=== PATIENT | female | born 1955 | race Caucasian/White ===

== ENCOUNTER 2016-07-01 13:24 | Inpatient (IN) | payer OTHER ==
[2016-07-01 15:12] VITALS: BMI 30.7
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
[2016-07-01] MEDS ORDERED: LOPERAMIDE HCL 2 MG CAPSULE PO PRN (16:58)
[2016-07-01] MEDS ORDERED: MENTHOL/PHENOL 1 EACH UD MM PRN (16:58)
[2016-07-01] MEDS ORDERED: MAGNESIUM HYDROX 2400MG/30ML ORAL SUSPENSION 30 ML CUP PO PRN (16:58)
[2016-07-01] MEDS ORDERED: NICOTINE POLACRILEX 2 MG GUM BC PRN (16:58)
[2016-07-01] MEDS ORDERED: guaiFENesin/D-METHORPHAN HB 10 ML UNIT-DOSE CUPS PO PRN (16:58)
[2016-07-01] MEDS ORDERED: hydrOXYzine PAMOATE 50 MG CAPSULE (FP) PO PRN (16:58)
[2016-07-01] MEDS ORDERED: MAG HYDROX/AL HYDROX/SIMETH 30 ML UNIT-DOSE CUP PO PRN (16:58)
[2016-07-01] MEDS ORDERED: MAGNESIUM CITRATE 300 ML BOTTLE PO PRN (16:58)
[2016-07-01] MEDS ORDERED: P-EPHED 60MG/TRIPROLIDI 2.5MG TABLET PO PRN (16:58)
[2016-07-01] MEDS ORDERED: ALBUTEROL SO4 6.7 GM HFA INHALER IH PRN (17:01)
[2016-07-01] MEDS ORDERED: chlordiazePOXIDE HCL 25 MG CAPSULE PO ONE (18:30)
[2016-07-01] MEDS: ONDANSETRON *ODT* 4 MG TABLET SL PRN (19:04)
[2016-07-01] MEDS: chlordiazePOXIDE HCL 25 MG CAPSULE PO SCH ×2 (19:15→22:38)
[2016-07-01] MEDS: chlordiazePOXIDE HCL 25 MG CAPSULE PO PRN (21:16)
[2016-07-01] MEDS: THIAMINE HCL 100 MG TABLET (FP) PO SCH (22:38)
[2016-07-01] MEDS: RANITIDINE HCL 150 MG TABLET (FP) PO SCH (22:38)
[2016-07-01] MEDS: amLODIPine BESYLATE 5 MG TABLET (FP) PO SCH (22:38)
[2016-07-01] MEDS: ACETAMINOPHEN 325 MG TABLET (FP) PO PRN (22:40)
[2016-07-01] MEDS: diphenhydrAMINE HCL 50 MG CAPSULE PO PRN (23:48)
[2016-07-02] MEDS: chlordiazePOXIDE HCL 25 MG CAPSULE PO SCH ×4 (06:05→22:20)
[2016-07-02] MEDS ORDERED: METHADONE HCL 10 MG TABLET PO ONE (09:25)
[2016-07-02] MEDS ORDERED: METHADONE 40 MG, METHADONE 20 MG PO ONE (10:00)
--- NOTE | 2016-07-02 10:14 | PN ---
S CIWA - CIWA Score Nausea/Vomitin Muscle Tremors: 3 Anxiety: 2 Agitation: 3 Paroxysmal Sweats: 1-Minimal Palms Moist Orientation: 0-Oriented Tacttile Disturbances: 1-Very Mild Itch/Numbness Auditory Disturbances: 1-Very Mild Visual Disturbances: 1-Very Mild Sensitivity Headache: 2-Mild CIWA-Ar Total Score: 17 BHS Progress Note (SOAP) Subjective: ALERT,INTERRUPTED SLEEP,TREMOR,IRRITABLE,ANXIOUS, Objective: 07/02/16 10:09 Vital Signs Temperature 97.7 F 07/02/16 06:00 Pulse Rate 106 H 07/02/16 06:00 Respiratory Rate 20 07/02/16 06:00 Blood Pressure 144/85 07/02/16 06:00 O2 Sat by Pulse Oximetry (%) EKG SINUS TACHYCARDIA 102 NO CHEST PAIN,NO SOB NO DIZZINESS LABS PENDING Assessment: 07/02/16 10:14 WITHDRAWAL SYMPTOM Plan: CONTINUE DETOX
[2016-07-02] MEDS ORDERED: METHADONE HCL 10 MG TABLET ONE (10:19)
[2016-07-02] MEDS ORDERED: METHADONE HCL 40 MG DISPERSABLE TABLET ONE (10:19)
[2016-07-02 10:29] LABS: MCH 31.4 pg (25.7-33.7); MCHC 33.6 g/dl (32.0-36.0); MEAN CELL VOLUME 93.7 fl (80-96); PLATELET COUNT 73 K/MM3 (134-434); WHITE BLOOD COUNT 3.4 K/mm3 (4.0-10.0)
[2016-07-02 10:46] LABS: ALBUMIN 2.9 g/dl (3.4-5.0)
[2016-07-02 10:50] LABS: ALK PHOS 127 U/L (45-117); ANION GAP 12 (8-16); BILIRUBIN,TOTAL 4.7 mg/dL (0.2-1.0); CALCIUM 7.5 mg/dL (8.5-10.1); CO2 34 mmol/L (21-32); CREATININE 0.7 mg/dL (0.55-1.02); GLUCOSE,RANDOM 128 mg/dL (74-106); SGPT/ALT 247 U/L (12-78); TOT PROT 7.3 g/dl (6.4-8.2)
[2016-07-02 10:52] LABS: SGOT/AST 465 U/L (15-37)
[2016-07-02] MEDS: RANITIDINE HCL 150 MG TABLET (FP) PO SCH ×2 (11:00→22:19)
[2016-07-02] MEDS: ASPIRIN 81 MG CHEWABLE TABLETS PO SCH (11:13)
[2016-07-02] MEDS: PRENATAL VITAMINS W/ FOLIC ACID TABLET (FP) PO SCH (11:13)
[2016-07-02] MEDS: amLODIPine BESYLATE 5 MG TABLET (FP) PO SCH ×2 (11:14→22:19)
[2016-07-02] MEDS: NICOTINE 7 MG/24 HOURS TOPICAL PATCH TD SCH (11:16)
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
[2016-07-02] MEDS ORDERED: INFLUENZA VACCINE 45 MCG/0.5 ML (MDV 16-17) IM ONE (12:00)
[2016-07-02] MEDS: chlordiazePOXIDE HCL 25 MG CAPSULE PO PRN (12:45)
--- NOTE | 2016-07-02 16:21 | EKG ---
Test Reason : Blood Pressure : / mmHG Vent. Rate : 102 BPM Atrial Rate : 102 BPM P-R Int : 172 ms QRS Dur : 074 ms QT Int : 384 ms P-R-T Axes : 065 007 048 degrees QTc Int : 500 ms SINUS TACHYCARDIA NONSPECIFIC ST ABNORMALITY ABNORMAL ECG NO PREVIOUS ECGS AVAILABLE Confirmed by SHARON HOLGUIN MD ([id number]) on 07/02/2016 4:20:37 PM Referred By: Paulino Lilly Confirmed By:SHARON HOLGUIN MD
[2016-07-02] MEDS: THIAMINE HCL 100 MG TABLET (FP) PO SCH (22:19)
[2016-07-02] MEDS: ACETAMINOPHEN 325 MG TABLET (FP) PO PRN (22:19)
[2016-07-02] MEDS: diphenhydrAMINE HCL 50 MG CAPSULE PO PRN (22:20)
[2016-07-03] MEDS: chlordiazePOXIDE HCL 25 MG CAPSULE PO SCH ×2 (05:55→10:49)
[2016-07-03] MEDS ORDERED: METHADONE HCL 10 MG TABLET ONE (05:55)
[2016-07-03] MEDS ORDERED: METHADONE HCL 40 MG DISPERSABLE TABLET ONE (05:56)
[2016-07-03] MEDS: METHADONE 40 MG, METHADONE 20 MG PO SCH (05:56)
[2016-07-03] MEDS ORDERED: METHADONE HCL 10 MG TABLET PO SCH (06:00)
[2016-07-03] MEDS: PRENATAL VITAMINS W/ FOLIC ACID TABLET (FP) PO SCH (10:49)
[2016-07-03] MEDS: ASPIRIN 81 MG CHEWABLE TABLETS PO SCH (10:49)
[2016-07-03] MEDS: amLODIPine BESYLATE 5 MG TABLET (FP) PO SCH ×2 (10:49→21:14)
[2016-07-03] MEDS: RANITIDINE HCL 150 MG TABLET (FP) PO SCH ×2 (10:51→21:14)
[2016-07-03] MEDS: NICOTINE 7 MG/24 HOURS TOPICAL PATCH TD SCH (11:15)
--- NOTE | 2016-07-03 12:04 | PN ---
S CIWA - CIWA Score Nausea/Vomitin Muscle Tremors: 3 Anxiety: 3 Agitation: 2 Paroxysmal Sweats: 1-Minimal Palms Moist Orientation: 0-Oriented Tacttile Disturbances: 1-Very Mild Itch/Numbness Auditory Disturbances: 1-Very Mild Visual Disturbances: 1-Very Mild Sensitivity Headache: 2-Mild CIWA-Ar Total Score: 17 BHS Progress Note (SOAP) Subjective: ALERT,IRRITABLE,ANXIOUS,INTERRUPTED SLEEP,TREMOR Objective: 07/03/16 12:01 Vital Signs Temperature 98.6 F 07/03/16 10:00 Pulse Rate 128 H 07/03/16 10:00 Respiratory Rate 18 07/03/16 10:00 Blood Pressure 128/81 07/03/16 10:00 O2 Sat by Pulse Oximetry (%) 07/03/16 12:01 Laboratory Last Values WBC 3.4 K/mm3 (4.0-10.0) L 07/02/16 08:00 RBC 3.22 M/mm3 (3.60-5.2) L D 07/02/16 08:00 Hgb 10.1 GM/dL (10.7-15.3) L D 07/02/16 08:00 Hct 30.2 % (32.4-45.2) L D 07/02/16 08:00 MCV 93.7 fl (80-96) 07/02/16 08:00 MCHC 33.6 g/dl (32.0-36.0) 07/02/16 08:00 RDW 20.0 % (11.6-15.6) H D 07/02/16 08:00 Plt Count 73 K/MM3 (134-434) L D 07/02/16 08:00 MPV 10.0 fl (7.5-11.1) 07/02/16 08:00 Sodium 138 mmol/L (136-145) 07/02/16 08:00 Potassium 3.4 mmol/L (3.5-5.1) L D 07/02/16 08:00 Chloride 92 mmol/L (98-107) L D 07/02/16 08:00 Carbon Dioxide 34 mmol/L (21-32) H D 07/02/16 08:00 Anion Gap 12 (8-16) 07/02/16 08:00 BUN 12 mg/dL (7-18) D 07/02/16 08:00 Creatinine 0.7 mg/dL (0.55-1.02) 07/02/16 08:00 Creat Clearance w eGFR > 60 (>60) 07/02/16 08:00 Random Glucose 128 mg/dL (74-106) H 07/02/16 08:00 Calcium 7.5 mg/dL (8.5-10.1) L D 07/02/16 08:00 Total Bilirubin 4.7 mg/dL (0.2-1.0) H D 07/02/16 08:00 AST 465 U/L (15-37) H D 07/02/16 08:00 ALT 247 U/L (12-78) H D 07/02/16 08:00 Alkaline Phosphatase 127 U/L (45-117) H D 07/02/16 08:00 Total Protein 7.3 g/dl (6.4-8.2) 07/02/16 08:00 Albumin 2.9 g/dl (3.4-5.0) L D 07/02/16 08:00 RPR Titer Nonreactive (NONREACTIVE) 07/02/16 08:00 Assessment: 07/03/16 12:02 WITHDRAWAL SYMPTOM Plan: CONTINUE DETOX,K 3.4 KDURE 20 MEQ PO DAILY,GLUCOE 120 WILL MONITORING BGM, AST 465,ALT 247,WILL D/C TYLENOL,REPEAT CMP,INR ,AMMONIA LEVEL IN AM
[2016-07-03] MEDS ORDERED: POTASSIUM CHLORIDE TABS 20 MEQ TABLET.ER (FP) PO ONE (12:28)
[2016-07-03 13:40] LABS: URINE APPEARANCE CLEAR; URINE BLOOD NEGATIVE (NEGATIVE); URINE COLOR AMBER; URINE GLUCOSE (UA) NEGATIVE (NEGATIVE); URINE KETONE NEGATIVE (NEGATIVE); URINE NITRITE NEGATIVE (NEGATIVE); URINE PROTEIN NEGATIVE (NEGATIVE); URINE UROBILINOGEN 4.0 E.U/dl E.U./dl (0.2-1.0)
[2016-07-03 13:43] LABS: URINE LEUK ESTERASE 2+ (NEGATIVE)
[2016-07-03 13:59] LABS: URINE BACTERIA RARE /hpf (NONE SEEN); URINE RBC <1 /hpf (0-3); URINE WBC 7 /hpf (3-5)
[2016-07-03] MEDS: IBUPROFEN 400 MG TABLET (FP) PO PRN (14:33)
[2016-07-03] MEDS: chlordiazePOXIDE 5 MG CAPSULE PO SCH ×2 (17:23→22:06)
[2016-07-03] MEDS: THIAMINE HCL 100 MG TABLET (FP) PO SCH (21:13)
[2016-07-04] MEDS: IBUPROFEN 400 MG TABLET (FP) PO PRN (03:20)
[2016-07-04] MEDS ORDERED: METHADONE HCL 40 MG DISPERSABLE TABLET ONE (04:08)
[2016-07-04] MEDS ORDERED: METHADONE HCL 10 MG TABLET ONE (04:08)
[2016-07-04] MEDS: chlordiazePOXIDE 5 MG CAPSULE PO SCH ×2 (06:22→13:12)
[2016-07-04] MEDS: METHADONE 40 MG, METHADONE 20 MG PO SCH (06:22)
[2016-07-04 10:11] LABS: ALBUMIN 3.2 g/dl (3.4-5.0); BILIRUBIN,TOTAL 5.3 mg/dL (0.2-1.0); CREATININE 1.1 mg/dL (0.55-1.02); TOT PROT 7.8 g/dl (6.4-8.2)
[2016-07-04] MEDS: PRENATAL VITAMINS W/ FOLIC ACID TABLET (FP) PO SCH (10:33)
[2016-07-04] MEDS: RANITIDINE HCL 150 MG TABLET (FP) PO SCH ×2 (10:33→22:46)
[2016-07-04] MEDS: ONDANSETRON *ODT* 4 MG TABLET SL PRN (10:33)
[2016-07-04] MEDS: POTASSIUM CHLORIDE TABS 20 MEQ TABLET.ER (FP) PO SCH (10:33)
[2016-07-04] MEDS: NICOTINE 7 MG/24 HOURS TOPICAL PATCH TD SCH (10:33)
[2016-07-04] MEDS: amLODIPine BESYLATE 5 MG TABLET (FP) PO SCH ×2 (10:33→22:46)
[2016-07-04] MEDS: ASPIRIN 81 MG CHEWABLE TABLETS PO SCH (10:33)
--- NOTE | 2016-07-04 10:35 | PN ---
S Progress Note (SOAP) Subjective: ALERT,IRRITABLE,ANXIOUS,INTERRUPTED SLEEP,TREMOR Objective: 07/04/16 10:35 Vital Signs Temperature 97.5 F L 07/04/16 09:53 Pulse Rate 109 H 07/04/16 09:53 Respiratory Rate 20 07/04/16 09:53 Blood Pressure 103/69 07/04/16 09:53 O2 Sat by Pulse Oximetry (%) 07/04/16 10:36 Laboratory Last Values WBC 3.4 K/mm3 (4.0-10.0) L 07/02/16 08:00 RBC 3.22 M/mm3 (3.60-5.2) L D 07/02/16 08:00 Hgb 10.1 GM/dL (10.7-15.3) L D 07/02/16 08:00 Hct 30.2 % (32.4-45.2) L D 07/02/16 08:00 MCV 93.7 fl (80-96) 07/02/16 08:00 MCHC 33.6 g/dl (32.0-36.0) 07/02/16 08:00 RDW 20.0 % (11.6-15.6) H D 07/02/16 08:00 Plt Count 73 K/MM3 (134-434) L D 07/02/16 08:00 MPV 10.0 fl (7.5-11.1) 07/02/16 08:00 Sodium 135 mmol/L (136-145) L 07/04/16 08:00 Potassium 3.9 mmol/L (3.5-5.1) 07/04/16 08:00 Chloride 95 mmol/L (98-107) L 07/04/16 08:00 Carbon Dioxide 31 mmol/L (21-32) 07/04/16 08:00 Anion Gap 9 (8-16) 07/04/16 08:00 BUN 26 mg/dL (7-18) H D 07/04/16 08:00 Creatinine 1.1 mg/dL (0.55-1.02) H D 07/04/16 08:00 Creat Clearance w eGFR 50.17 (>60) 07/04/16 08:00 Random Glucose 102 mg/dL (74-106) D 07/04/16 08:00 Calcium 8.0 mg/dL (8.5-10.1) L 07/04/16 08:00 Total Bilirubin 5.3 mg/dL (0.2-1.0) H 07/04/16 08:00 AST 265 U/L (15-37) H D 07/04/16 08:00 ALT 192 U/L (12-78) H D 07/04/16 08:00 Alkaline Phosphatase 210 U/L (45-117) H D 07/04/16 08:00 Total Protein 7.8 g/dl (6.4-8.2) 07/04/16 08:00 Albumin 3.2 g/dl (3.4-5.0) L 07/04/16 08:00 Urine Color [place] 07/03/16 12:00 Urine Appearance Clear 07/03/16 12:00 Urine pH 7.0 (5.0-8.0) 07/03/16 12:00 Ur Specific [place] 1.014 (1.001-1.035) 07/03/16 12:00 Urine Protein Negative (NEGATIVE) 07/03/16 12:00 Urine Glucose (UA) Negative (NEGATIVE) 07/03/16 12:00 Urine Ketones Negative (NEGATIVE) 07/03/16 12:00 Urine Blood Negative (NEGATIVE) 07/03/16 12:00 Urine Nitrite Negative (NEGATIVE) 07/03/16 12:00 Urine Bilirubin 2.0 (NEGATIVE) 07/03/16 12:00 Urine Urobilinogen 4.0 e.u/dl E.U./dl (0.2-1.0) H 07/03/16 12:00 Ur Leukocyte Esterase 2+ (NEGATIVE) H 07/03/16 12:00 Urine RBC <1 /hpf (0-3) 07/03/16 12:00 Urine WBC 7 /hpf (3-5) 07/03/16 12:00 Ur Epithelial Cells Rare /hpf (FEW) 07/03/16 12:00 Urine Bacteria Rare /hpf (NONE SEEN) 07/03/16 12:00 RPR Titer Nonreactive (NONREACTIVE) 07/02/16 08:00 LABS CBC,INR ,AMMONIA LEVEL PENDING Assessment: 07/04/16 10:35 WITHDRAWAL SYMPTOM Plan: CONTINUE DETOX
[2016-07-04 10:58] LABS: INR 1.35 (0.82-1.09); PROTHROMBIN TIME (PATIENT) 14.9 SEC (9.98-11.88)
--- NOTE | 2016-07-04 11:17 | PN ---
[facility] Progress Note Note: Laboratory Results - last 24 hr 07/03/16 07/04/16 07/04/16 12:00 08:00 08:00 INR 1.35 H D Sodium 135 L Potassium 3.9 Chloride 95 L Carbon Dioxide 31 Anion Gap 9 BUN 26 H D Creatinine 1.1 H D Creat Clearance w eGFR 50.17 Random Glucose 102 D Calcium 8.0 L Total Bilirubin 5.3 H AST 265 H D ALT 192 H D Alkaline Phosphatase 210 H D Ammonia Total Protein 7.8 Albumin 3.2 L Urine Color [place] Urine Appearance Clear Urine pH 7.0 Ur Specific [place] 1.014 Urine Protein Negative Urine Glucose (UA) Negative Urine Ketones Negative Urine Blood Negative Urine Nitrite Negative Urine Bilirubin 2.0 Urine Urobilinogen 4.0 e.u/dl H Ur Leukocyte Esterase 2+ H Urine RBC <1 Urine WBC 7 Ur Epithelial Cells Rare Urine Bacteria Rare 07/04/16 08:00 INR Sodium Potassium Chloride Carbon Dioxide Anion Gap BUN Creatinine Creat Clearance w eGFR Random Glucose Calcium Total Bilirubin AST ALT Alkaline Phosphatase Ammonia 92.6 H Total Protein Albumin Urine Color Urine Appearance Urine pH Ur Specific [place] Urine Protein Urine Glucose (UA) Urine Ketones Urine Blood Urine Nitrite Urine Bilirubin Urine Urobilinogen Ur Leukocyte Esterase Urine RBC Urine WBC Ur Epithelial Cells Urine Bacteria WILL STARTED PATIENT ON LACTULOSE 30 MLS PO QID
[2016-07-04] MEDS ORDERED: LACTULOSE 20 GM/30 ML UDC (FOR ORAL USE ONLY) PO ONE (11:32)
[2016-07-04] MEDS: LACTULOSE 20 GM/30 ML UDC (FOR ORAL USE ONLY) PO SCH ×4 (14:18→22:46)
[2016-07-04] MEDS: chlordiazePOXIDE HCL 10 MG CAPSULE PO SCH ×2 (18:28→22:46)
[2016-07-04] MEDS: THIAMINE HCL 100 MG TABLET (FP) PO SCH (22:46)
[2016-07-05] MEDS ORDERED: METHADONE HCL 10 MG TABLET ONE (04:59)
[2016-07-05] MEDS ORDERED: METHADONE HCL 40 MG DISPERSABLE TABLET ONE (04:59)
[2016-07-05] MEDS: METHADONE 40 MG, METHADONE 20 MG PO SCH (05:28)
[2016-07-05] MEDS: chlordiazePOXIDE HCL 10 MG CAPSULE PO SCH ×2 (05:28→10:25)
[2016-07-05] MEDS: IBUPROFEN 400 MG TABLET (FP) PO PRN (05:29)
--- NOTE | 2016-07-05 09:01 | DS ---
[facility] Detox Discharge Summary Admission Date: 07/01/16 - History Present History: Alcohol Dependence, MMTP - Physical Exam Results Vital Signs: Vital Signs Temperature 97.6 F 07/05/16 06:47 Pulse Rate 105 H 07/05/16 06:47 Respiratory Rate 20 07/05/16 06:47 Blood Pressure 112/68 07/05/16 06:47 O2 Sat by Pulse Oximetry (%) - Treatment Hospital Course: Detox Protocol Followed, Detoxed Safely, Responded well, Discharged Condition Good - Medication Discharge Medications: Ambulatory Orders Quetiapine Fumarate [Seroquel -] 100 mg PO HS 09/25/15 Zolpidem Tartrate [Ambien] 10 mg PO HS 12/16/15 Albuterol Sulfate Inhaler - [Ventolin HFA Inhaler -] 2 inh PO Q4H PRN #1 inhaler 01/04/16 Amlodipine Besylate [Norvasc -] 5 mg PO BID #30 tablet 01/04/16 Aspirin [ASA -] 81 mg PO DAILY #30 tab.chew 01/04/16 Bupropion HCl [Wellbutrin -] 75 mg PO DAILY #30 tablet 01/04/16 Ranitidine [Zantac -] 150 mg PO BID #60 tablet 01/04/16 Trazodone HCl [Desyrel -] 50 mg PO HS #30 tablet 01/04/16 - Diagnosis (1) Alcohol dependence with uncomplicated withdrawal Current Visit: Yes Status: Chronic (2) Bruise of both arms Current Visit: Yes Status: Acute (3) Nicotine dependence Current Visit: Yes Status: Chronic Qualifiers: Nicotine product type: cigarettes Substance use status: uncomplicated Qualified Code(s): F17.210 - Nicotine dependence, cigarettes, uncomplicated (4) Opioid dependence on agonist therapy Current Visit: Yes Status: Chronic (5) Asthma Current Visit: Yes Status: Chronic Qualifiers: Asthma severity: mild intermittent Asthma complication type: uncomplicated Qualified Code(s): J45.20 - Mild intermittent asthma, uncomplicated (6) Essential hypertension Current Visit: Yes Status: Chronic (7) Hepatitis C carrier Current Visit: Yes Status: Chronic (8) Low back pain Current Visit: Yes Status: Chronic (9) Use of cane as ambulatory aid Current Visit: Yes Status: Chronic (10) Bipolar disorder Current Visit: Yes Status: Chronic (11) Cirrhosis of liver Current Visit: Yes Status: Chronic - AMA Did Patient Leave Against Medical Advice: No
[2016-07-05 10:09] VITALS: BP 115/73; PULSE 108; TEMP 97.2
[2016-07-05] MEDS: ASPIRIN 81 MG CHEWABLE TABLETS PO SCH (10:21)
[2016-07-05] MEDS: POTASSIUM CHLORIDE TABS 20 MEQ TABLET.ER (FP) PO SCH (10:22)
[2016-07-05] MEDS: amLODIPine BESYLATE 5 MG TABLET (FP) PO SCH (10:22)
[2016-07-05] MEDS: PRENATAL VITAMINS W/ FOLIC ACID TABLET (FP) PO SCH (10:23)
[2016-07-05] MEDS: NICOTINE 7 MG/24 HOURS TOPICAL PATCH TD SCH (10:23)
[2016-07-05] MEDS: LACTULOSE 20 GM/30 ML UDC (FOR ORAL USE ONLY) PO SCH (10:24)
[2016-07-05] MEDS: RANITIDINE HCL 150 MG TABLET (FP) PO SCH (10:24)
== END 2016-07-05 12:30 | disposition other institution (70) | DRG 773 ==
LOC: YASAS 13:24 → Y6N 18:11
PROVIDERS: ADMIT Internal Medicine; ATTEND Internal Medicine
PROC: HZ2ZZZZ Detoxification Services for Substance Abuse Treatment (ICD-10-PCS; principal; 2016-07-01)
DX: F10.230 Alcohol dependence with withdrawal, uncomplicated (principal); F11.20 Opioid dependence, uncomplicated; F17.210 Nicotine dependence, cigarettes, uncomplicated; F31.9 Bipolar disorder, unspecified; J45.20 Mild intermittent asthma, uncomplicated; J44.9 Chronic obstructive pulmonary disease, unspecified; I10 Essential (primary) hypertension; B18.2 Chronic viral hepatitis C; M54.5 Low back pain; K21.9 Gastro-esophageal reflux disease without esophagitis; R26.2 Difficulty in walking, not elsewhere classified; K74.60 Unspecified cirrhosis of liver; E78.00 Pure hypercholesterolemia, unspecified; I25.2 Old myocardial infarction; R00.0 Tachycardia, unspecified; Z91.5 Personal history of self-harm; S00.83XA Contusion of other part of head, initial encounter; S40.812A Abrasion of left upper arm, initial encounter; S40.811A Abrasion of right upper arm, initial encounter; X58.XXXA Exposure to other specified factors, initial encounter; Y93.9 Activity, unspecified; Y92.9 Unspecified place or not applicable
CPT/HCPCS: 36415; 80053; 81003; 81015; 82140; 85027; 85610; 86593; 93005; 93010

== ENCOUNTER 2016-07-05 12:21 | Inpatient (IN) | payer OTHER ==
[2016-07-05 14:18] VITALS: BMI 28.6
--- NOTE | 2016-07-05 16:14 | HP ---
[facility] Rehab Assess/Revision - Admission History Admitted to Rehab from: [facility] Date of Admission to Rehab: 07/05/16 - Vital signs Vital Signs: Vital Signs Period Temp Pulse Resp BP Sys/Craig Pulse Ox Last 24 Hr 97.4 F 90 18 96/64 - Findings Detox History & Physical reviewed: Yes Concur with findings: Yes Comments/Additional Findings: trasnferred from detox to rehab admission as per protocol
[2016-07-05] MEDS ORDERED: MAG HYDROX/AL HYDROX/SIMETH 30 ML UNIT-DOSE CUP PO PRN ×2 (16:15→16:17)
[2016-07-05] MEDS ORDERED: LOPERAMIDE HCL 2 MG CAPSULE PO PRN ×2 (16:15→16:17)
[2016-07-05] MEDS ORDERED: MAGNESIUM CITRATE 300 ML BOTTLE PO PRN ×2 (16:15→16:17)
[2016-07-05] MEDS ORDERED: MAGNESIUM HYDROX 2400MG/30ML ORAL SUSPENSION 30 ML CUP PO PRN ×2 (16:15→16:17)
[2016-07-05] MEDS ORDERED: guaiFENesin/D-METHORPHAN HB 10 ML UNIT-DOSE CUPS PO PRN ×2 (16:15→16:17)
[2016-07-05] MEDS ORDERED: diphenhydrAMINE HCL 50 MG CAPSULE PO PRN ×2 (16:15→16:17)
[2016-07-05] MEDS ORDERED: MENTHOL/PHENOL 1 EACH UD MM PRN ×2 (16:15→16:17)
[2016-07-05] MEDS ORDERED: ACETAMINOPHEN 325 MG TABLET (FP) PO PRN ×2 (16:15→16:17)
[2016-07-05] MEDS ORDERED: P-EPHED 60MG/TRIPROLIDI 2.5MG TABLET PO PRN ×2 (16:15→16:17)
[2016-07-05] MEDS ORDERED: THIAMINE HCL 100 MG TABLET (FP) PO SCH (22:00)
[2016-07-05] MEDS: traZODone HCL 100 MG TABLET (FP) PO SCH (22:53)
[2016-07-05] MEDS: THIAMINE HCL 100 MG TABLET (FP) PO SCH (22:53)
[2016-07-06] MEDS ORDERED: METHADONE HCL 40 MG DISPERSABLE TABLET ONE (05:50)
[2016-07-06] MEDS ORDERED: METHADONE HCL 10 MG TABLET ONE (05:50)
[2016-07-06] MEDS ORDERED: METHADONE HCL 40 MG DISPERSABLE TABLET PO SCH (06:00)
[2016-07-06] MEDS: METHADONE 40 MG, METHADONE 20 MG PO SCH (06:35)
[2016-07-06] MEDS ORDERED: LACTULOSE 20 GM/30 ML UDC (FOR ORAL USE ONLY) PO PRN (09:53)
[2016-07-06] MEDS ORDERED: ALBUTEROL SO4 6.7 GM HFA INHALER IH PRN (09:57)
[2016-07-06] MEDS ORDERED: amLODIPine BESYLATE 5 MG TABLET (FP) PO SCH (10:00)
[2016-07-06] MEDS ORDERED: PRENATAL VITAMINS W/ FOLIC ACID TABLET (FP) PO SCH (10:00)
[2016-07-06] MEDS: RANITIDINE HCL 150 MG TABLET (FP) PO SCH ×2 (10:54→21:28)
[2016-07-06] MEDS: PRENATAL VITAMINS W/ FOLIC ACID TABLET (FP) PO SCH (10:54)
[2016-07-06] MEDS ORDERED: INFLUENZA VACCINE 45 MCG/0.5 ML (MDV 16-17) IM ONE (12:00)
[2016-07-06 12:26] LABS: HIV 1 & 2 AB NEGATIVE; HIV 1 AGp24 NEGATIVE
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
[2016-07-06] MEDS: ASPIRIN COATED 81 MG TABLET.EC PO SCH (14:55)
[2016-07-06] MEDS: FUROSEMIDE 20 MG TABLET (FP) PO SCH (14:55)
[2016-07-06] MEDS: SPIRONOLACTONE 25 MG TABLET (FP) PO SCH (18:28)
[2016-07-06] MEDS: THIAMINE HCL 100 MG TABLET (FP) PO SCH (21:28)
[2016-07-06] MEDS: traZODone HCL 100 MG TABLET (FP) PO SCH (21:30)
[2016-07-06] MEDS: LACTULOSE 20 GM/30 ML UDC (FOR ORAL USE ONLY) PO SCH (21:31)
[2016-07-07] MEDS ORDERED: METHADONE HCL 40 MG DISPERSABLE TABLET ONE (03:13)
[2016-07-07] MEDS ORDERED: METHADONE HCL 10 MG TABLET ONE (03:13)
[2016-07-07] MEDS: METHADONE 40 MG, METHADONE 20 MG PO SCH (06:28)
[2016-07-07] MEDS: LACTULOSE 20 GM/30 ML UDC (FOR ORAL USE ONLY) PO SCH ×3 (06:30→21:29)
[2016-07-07] MEDS: SPIRONOLACTONE 25 MG TABLET (FP) PO SCH ×2 (09:39→18:25)
[2016-07-07] MEDS: FUROSEMIDE 20 MG TABLET (FP) PO SCH (09:39)
[2016-07-07] MEDS: RANITIDINE HCL 150 MG TABLET (FP) PO SCH ×2 (10:46→21:29)
[2016-07-07] MEDS: PRENATAL VITAMINS W/ FOLIC ACID TABLET (FP) PO SCH (10:47)
[2016-07-07] MEDS: ASPIRIN COATED 81 MG TABLET.EC PO SCH (10:47)
[2016-07-07] MEDS: IBUPROFEN 400 MG TABLET (FP) PO PRN (10:54)
[2016-07-07] MEDS: traZODone HCL 100 MG TABLET (FP) PO SCH (21:29)
[2016-07-07] MEDS: THIAMINE HCL 100 MG TABLET (FP) PO SCH (21:30)
[2016-07-08] MEDS ORDERED: METHADONE HCL 10 MG TABLET ONE (03:12)
[2016-07-08] MEDS ORDERED: METHADONE HCL 40 MG DISPERSABLE TABLET ONE (03:12)
[2016-07-08] MEDS: METHADONE 40 MG, METHADONE 20 MG PO SCH (06:26)
[2016-07-08] MEDS: LACTULOSE 20 GM/30 ML UDC (FOR ORAL USE ONLY) PO SCH ×3 (06:31→21:31)
[2016-07-08] MEDS: PRENATAL VITAMINS W/ FOLIC ACID TABLET (FP) PO SCH (10:15)
[2016-07-08] MEDS: ASPIRIN COATED 81 MG TABLET.EC PO SCH (10:15)
[2016-07-08] MEDS: FUROSEMIDE 20 MG TABLET (FP) PO SCH (10:15)
[2016-07-08] MEDS: RANITIDINE HCL 150 MG TABLET (FP) PO SCH ×2 (10:15→21:31)
[2016-07-08] MEDS: SPIRONOLACTONE 25 MG TABLET (FP) PO SCH ×2 (10:15→18:44)
[2016-07-08] MEDS ORDERED: METHADONE HCL 40 MG DISPERSABLE TABLET PO SCH (13:31)
--- NOTE | 2016-07-08 13:35 | PN ---
[facility] Progress Note Note: Patient requested dcrease of methadone dose to 50mg from 60mg because of daytime sleepiness, abnormal u/a, CBC and LFTs. Will repeat and recheck ammonia level. nursing aware.
[2016-07-08] MEDS: traZODone HCL 100 MG TABLET (FP) PO SCH (21:31)
[2016-07-08] MEDS: THIAMINE HCL 100 MG TABLET (FP) PO SCH (21:31)
[2016-07-09] MEDS ORDERED: METHADONE HCL 10 MG TABLET ONE (04:11)
[2016-07-09] MEDS ORDERED: METHADONE HCL 40 MG DISPERSABLE TABLET ONE (04:11)
[2016-07-09] MEDS: LACTULOSE 20 GM/30 ML UDC (FOR ORAL USE ONLY) PO SCH ×3 (06:32→21:18)
[2016-07-09] MEDS: METHADONE 40 MG, METHADONE 10 MG PO SCH (06:33)
[2016-07-09] MEDS: FUROSEMIDE 20 MG TABLET (FP) PO SCH (10:13)
[2016-07-09] MEDS: RANITIDINE HCL 150 MG TABLET (FP) PO SCH ×2 (10:13→21:17)
[2016-07-09] MEDS: PRENATAL VITAMINS W/ FOLIC ACID TABLET (FP) PO SCH (10:13)
[2016-07-09] MEDS: ASPIRIN COATED 81 MG TABLET.EC PO SCH (10:13)
[2016-07-09] MEDS: SPIRONOLACTONE 25 MG TABLET (FP) PO SCH ×2 (10:14→18:24)
[2016-07-09 11:07] LABS: BASOPHIL 0.8 % (0-2.0); EOSINOPHIL 0.6 % (0-4.5); MCH 32.7 pg (25.7-33.7); MCHC 32.7 g/dl (32.0-36.0); MEAN CELL VOLUME 99.9 fl (80-96); MEAN PLT VOLUME 10.5 fl (7.5-11.1); NEUTROPHILS 50.7 % (42.8-82.8); PLATELET COUNT 179 K/MM3 (134-434); RDW 19.8 % (11.6-15.6); WHITE BLOOD COUNT 5.9 K/mm3 (4.0-10.0)
[2016-07-09 11:40] LABS: ALBUMIN 2.8 g/dl (3.4-5.0); CALCIUM 8.4 mg/dL (8.5-10.1); CREATININE 1.1 mg/dL (0.55-1.02)
[2016-07-09 11:42] LABS: BILIRUBIN,TOTAL 3.4 mg/dL (0.2-1.0); TOT PROT 7.5 g/dl (6.4-8.2)
--- NOTE | 2016-07-09 12:21 | PN ---
[id number] 08:00 08:00 WBC RBC Hgb Hct MCV MCHC RDW Plt Count MPV Neutrophils % Lymphocytes % Monocytes % Eosinophils % Basophils % Sodium 139 Potassium 4.4 Chloride 101 Carbon Dioxide 29 Anion Gap 9 BUN 23 H Creatinine 1.1 H Creat Clearance w eGFR 50.17 Random Glucose 94 Calcium 8.4 L Total Bilirubin 3.4 H D AST 100 H D ALT 87 H D Alkaline Phosphatase 129 H D Ammonia 172.86 H Total Protein 7.5 Albumin 2.8 L HIV 1&2 Antibody Screen Negative HIV P24 Antigen Negative 07/09/16 08:00 WBC 5.9 D RBC 3.32 L Hgb 10.9 Hct 33.2 MCV 99.9 H MCHC 32.7 RDW 19.8 H Plt Count 179 D MPV 10.5 Neutrophils % 50.7 Lymphocytes % 32.3 Monocytes % 15.6 H Eosinophils % 0.6 Basophils % 0.8 Sodium Potassium Chloride Carbon Dioxide Anion Gap BUN Creatinine Creat Clearance w eGFR Random Glucose Calcium Total Bilirubin AST ALT Alkaline Phosphatase Ammonia Total Protein Albumin HIV 1&2 Antibody Screen HIV P24 Antigen Vital Signs - 24 hr 07/08/16 07/08/16 07/09/16 13:30 18:40 00:30 Temperature Pulse Rate 84 91 H Respiratory 20 Rate Blood Pressure 98/63 129/78 07/09/16 07/09/16 07/09/16 03:30 07:02 09:44 Temperature 97.4 F L Pulse Rate 98 H 89 Respiratory 20 18 Rate Blood Pressure 104/69 96/63 07/09/16 11:17 Temperature 97.7 F Pulse Rate 75 Respiratory 18 Rate Blood Pressure 109/72 EKG prologed QTC, no acute changes Patient seen by Dr. Jorge Carrillo.
[2016-07-09] MEDS ORDERED: METHADONE HCL 40 MG DISPERSABLE TABLET PO SCH (13:31)
[2016-07-09] MEDS: IBUPROFEN 400 MG TABLET (FP) PO PRN (13:37)
--- NOTE | 2016-07-09 13:57 | PN ---
[facility] Progress Note (SOAP) Subjective: PT. C/O CHEST PAIN ALONG LEFT STERNAL BORDER Objective: 07/09/16 13:49 Vital Signs - 8 hr 07/09/16 07/09/16 07/09/16 07:02 09:44 11:17 Temperature 97.4 F L 97.7 F Pulse Rate 98 H 89 75 Respiratory 18 18 Rate Blood Pressure 104/69 96/63 109/72 Laboratory Tests 07/06/16 07/09/16 07/09/16 07:00 08:00 08:00 WBC RBC Hgb Hct MCV MCHC RDW Plt Count MPV Neutrophils % Lymphocytes % Monocytes % Eosinophils % Basophils % Sodium 139 Potassium 4.4 Chloride 101 Carbon Dioxide 29 Anion Gap 9 BUN 23 H Creatinine 1.1 H Creat Clearance w eGFR 50.17 Random Glucose 94 Calcium 8.4 L Total Bilirubin 3.4 H D AST 100 H D ALT 87 H D Alkaline Phosphatase 129 H D Ammonia 172.86 H Total Protein 7.5 Albumin 2.8 L HIV 1&2 Antibody Screen Negative HIV P24 Antigen Negative 07/09/16 08:00 WBC 5.9 D RBC 3.32 L Hgb 10.9 Hct 33.2 MCV 99.9 H MCHC 32.7 RDW 19.8 H Plt Count 179 D MPV 10.5 Neutrophils % 50.7 Lymphocytes % 32.3 Monocytes % 15.6 H Eosinophils % 0.6 Basophils % 0.8 Sodium Potassium Chloride Carbon Dioxide Anion Gap BUN Creatinine Creat Clearance w eGFR Random Glucose Calcium Total Bilirubin AST ALT Alkaline Phosphatase Ammonia Total Protein Albumin HIV 1&2 Antibody Screen HIV P24 Antigen ON 07/02 T. YASMANY 5.3, AST 265 & ALT 195 THERE IS IMPROVEMENT IN LIVER ENZYMES. CBC ALSO IMPROVED FROM 07/02/16. AMMONIA 172 UP FROM 96. LUNGS : GROSSLY CLEAR HEART : RR, NO MURMUR CHEST : PAIN ON PALPATION ALONG STERNO-CHONDRAL JOINT EKG : NSR, PROLONGED QTc WHEN COMPARED TO EKG OF 07/01/16 SINUS TACHYCARDIA NO LONGER PRESENT Assessment: 07/09/16 13:57 COSTOCHONDRITIS Plan: MOTRIN PRN CONTINUE NEBULIZER TREATMENT ASTHMA CONTINUE LACTULOSE
[2016-07-09 19:02] LABS: URINE APPEARANCE CLEAR; URINE BLOOD NEGATIVE (NEGATIVE); URINE COLOR AMBER; URINE GLUCOSE (UA) NEGATIVE (NEGATIVE); URINE KETONE NEGATIVE (NEGATIVE); URINE NITRITE NEGATIVE (NEGATIVE); URINE PROTEIN NEGATIVE (NEGATIVE); URINE UROBILINOGEN 4.0 E.U/dl E.U./dl (0.2-1.0)
[2016-07-09 19:13] LABS: URINE LEUK ESTERASE TRACE (NEGATIVE)
[2016-07-09 19:16] LABS: URINE BACTERIA RARE /hpf (NONE SEEN); URINE HYALINE CAST 12 /lpf; URINE MUCUS RARE; URINE RBC 1 /hpf (0-3); URINE WBC 1 /hpf (3-5)
[2016-07-09] MEDS: THIAMINE HCL 100 MG TABLET (FP) PO SCH (21:17)
[2016-07-09] MEDS: traZODone HCL 100 MG TABLET (FP) PO SCH (21:17)
[2016-07-10] MEDS: METHADONE 40 MG, METHADONE 10 MG PO SCH (06:50)
[2016-07-10] MEDS: LACTULOSE 20 GM/30 ML UDC (FOR ORAL USE ONLY) PO SCH ×3 (07:02→21:34)
[2016-07-10] MEDS ORDERED: METHADONE HCL 40 MG DISPERSABLE TABLET ONE (07:04)
[2016-07-10] MEDS ORDERED: METHADONE HCL 10 MG TABLET ONE (07:04)
[2016-07-10] MEDS: PRENATAL VITAMINS W/ FOLIC ACID TABLET (FP) PO SCH (10:14)
[2016-07-10] MEDS: FUROSEMIDE 20 MG TABLET (FP) PO SCH (10:14)
[2016-07-10] MEDS: SPIRONOLACTONE 25 MG TABLET (FP) PO SCH ×2 (10:14→17:43)
[2016-07-10] MEDS: ASPIRIN COATED 81 MG TABLET.EC PO SCH (10:15)
[2016-07-10] MEDS: RANITIDINE HCL 150 MG TABLET (FP) PO SCH ×2 (10:15→21:35)
[2016-07-10] MEDS: IBUPROFEN 400 MG TABLET (FP) PO PRN (10:16)
[2016-07-10] MEDS: traZODone HCL 100 MG TABLET (FP) PO SCH (21:35)
[2016-07-10] MEDS: THIAMINE HCL 100 MG TABLET (FP) PO SCH (21:35)
--- NOTE | 2016-07-10 23:36 | EKG ---
Test Reason : Blood Pressure : / mmHG Vent. Rate : 073 BPM Atrial Rate : 073 BPM P-R Int : 162 ms QRS Dur : 072 ms QT Int : 464 ms P-R-T Axes : 034 -03 029 degrees QTc Int : 511 ms NORMAL SINUS RHYTHM MINIMAL VOLTAGE CRITERIA FOR LVH, MAY BE NORMAL VARIANT PROLONGED QT ABNORMAL ECG WHEN COMPARED WITH ECG OF 01-JUL-2016 18:55, NO SIGNIFICANT CHANGE WAS FOUND Confirmed by ETTA SEARS, WINSTON ([id number]) on 07/10/2016 11:36:00 PM Referred By: Oksana Block Confirmed By:WINSTON QUILES MD
[2016-07-11] MEDS ORDERED: METHADONE HCL 40 MG DISPERSABLE TABLET ONE (03:22)
[2016-07-11] MEDS ORDERED: METHADONE HCL 10 MG TABLET ONE (03:22)
[2016-07-11] MEDS: METHADONE 40 MG, METHADONE 10 MG PO SCH (07:00)
[2016-07-11] MEDS: LACTULOSE 20 GM/30 ML UDC (FOR ORAL USE ONLY) PO SCH ×3 (07:01→21:20)
[2016-07-11] MEDS: SPIRONOLACTONE 25 MG TABLET (FP) PO SCH ×2 (09:28→19:06)
[2016-07-11] MEDS: FUROSEMIDE 20 MG TABLET (FP) PO SCH ×2 (09:29→14:28)
[2016-07-11] MEDS: PRENATAL VITAMINS W/ FOLIC ACID TABLET (FP) PO SCH (10:20)
[2016-07-11] MEDS: RANITIDINE HCL 150 MG TABLET (FP) PO SCH ×2 (10:20→21:19)
[2016-07-11] MEDS: ASPIRIN COATED 81 MG TABLET.EC PO SCH (10:20)
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
[2016-07-11] MEDS: traZODone HCL 100 MG TABLET (FP) PO SCH (21:19)
[2016-07-11] MEDS: THIAMINE HCL 100 MG TABLET (FP) PO SCH (21:19)
[2016-07-12] MEDS ORDERED: METHADONE HCL 10 MG TABLET ONE (04:57)
[2016-07-12] MEDS ORDERED: METHADONE HCL 40 MG DISPERSABLE TABLET ONE (04:58)
[2016-07-12] MEDS: FUROSEMIDE 20 MG TABLET (FP) PO SCH ×2 (06:36→13:44)
[2016-07-12] MEDS: METHADONE 40 MG, METHADONE 10 MG PO SCH (06:37)
[2016-07-12] MEDS: LACTULOSE 20 GM/30 ML UDC (FOR ORAL USE ONLY) PO SCH ×3 (06:38→21:38)
[2016-07-12] MEDS: ASPIRIN COATED 81 MG TABLET.EC PO SCH (10:23)
[2016-07-12] MEDS: SPIRONOLACTONE 25 MG TABLET (FP) PO SCH ×2 (10:23→18:00)
[2016-07-12] MEDS: RANITIDINE HCL 150 MG TABLET (FP) PO SCH ×2 (10:23→21:37)
[2016-07-12] MEDS: THIAMINE HCL 100 MG TABLET (FP) PO SCH (21:37)
[2016-07-12] MEDS: traZODone HCL 100 MG TABLET (FP) PO SCH (21:37)
[2016-07-13] MEDS ORDERED: METHADONE HCL 40 MG DISPERSABLE TABLET ONE (03:24)
[2016-07-13] MEDS ORDERED: METHADONE HCL 10 MG TABLET ONE (03:24)
[2016-07-13] MEDS: METHADONE 40 MG, METHADONE 10 MG PO SCH (06:22)
[2016-07-13] MEDS: FUROSEMIDE 20 MG TABLET (FP) PO SCH ×2 (06:23→13:21)
[2016-07-13] MEDS: LACTULOSE 20 GM/30 ML UDC (FOR ORAL USE ONLY) PO SCH ×3 (06:26→21:39)
[2016-07-13] MEDS ORDERED: PT OWN MED DRAWER 7, Y5N ONE (08:49)
[2016-07-13] MEDS: RANITIDINE HCL 150 MG TABLET (FP) PO SCH ×2 (10:26→21:41)
[2016-07-13] MEDS: ASPIRIN COATED 81 MG TABLET.EC PO SCH (10:26)
[2016-07-13] MEDS: SPIRONOLACTONE 25 MG TABLET (FP) PO SCH ×2 (10:26→18:25)
[2016-07-13] MEDS: traZODone HCL 100 MG TABLET (FP) PO SCH (21:39)
[2016-07-13] MEDS: THIAMINE HCL 100 MG TABLET (FP) PO SCH (21:40)
--- NOTE | 2016-07-14 00:07 | PN ---
S Progress Note Note: INVESTIGATIVE REPORTER RECEIVED A PHONE CALL FROM THE RN CARLOS ALBERTO STATING THE BIOCHEMISTRY TEACHER FOUND THE PATIENT ON THE FLOOR. PT. ASSESSED RESTING COMFORTABLY IN BED. SHE STATED SHE SLID OFF THE BED. SHE DENIED PAIN OR TENDERNESS ON PALPATION. SKIN INTACT. VSS. PATIENT ADVISED TO CALL THE NURSING STAFF IF SHE WANTS TO GET OOB ; PT. VERBALIZED UNDERSTANDING. PLAN: FALL PROTOCOL #2 INITIATED; REPEAT AMMONIA LEVELS; CONTINUE DETOX. Last Vital Signs Temp Pulse Resp BP Pulse Ox 98 F 87 18 121/80 07/13/16 12:00 07/13/16 13:16 07/13/16 12:00 07/13/16 13:16 +
[2016-07-14] MEDS ORDERED: METHADONE HCL 10 MG TABLET ONE (03:31)
[2016-07-14] MEDS ORDERED: METHADONE HCL 40 MG DISPERSABLE TABLET ONE (03:32)
[2016-07-14] MEDS: LACTULOSE 20 GM/30 ML UDC (FOR ORAL USE ONLY) PO SCH ×4 (07:10→21:08)
[2016-07-14] MEDS: METHADONE 40 MG, METHADONE 10 MG PO SCH (07:10)
[2016-07-14] MEDS: FUROSEMIDE 20 MG TABLET (FP) PO SCH ×2 (07:11→14:07)
[2016-07-14] MEDS: SPIRONOLACTONE 25 MG TABLET (FP) PO SCH ×2 (10:36→18:25)
[2016-07-14] MEDS: ASPIRIN COATED 81 MG TABLET.EC PO SCH (10:45)
[2016-07-14] MEDS: RANITIDINE HCL 150 MG TABLET (FP) PO SCH ×2 (10:45→21:08)
[2016-07-14] MEDS: traZODone HCL 100 MG TABLET (FP) PO SCH (21:08)
[2016-07-14] MEDS: THIAMINE HCL 100 MG TABLET (FP) PO SCH (21:08)
[2016-07-15] MEDS ORDERED: METHADONE HCL 40 MG DISPERSABLE TABLET PO SCH (06:15)
[2016-07-15] MEDS ORDERED: METHADONE HCL 40 MG DISPERSABLE TABLET ONE (07:05)
[2016-07-15] MEDS ORDERED: METHADONE HCL 10 MG TABLET ONE (07:05)
[2016-07-15] MEDS: METHADONE 40 MG, METHADONE 10 MG PO SCH (07:06)
[2016-07-15] MEDS: LACTULOSE 20 GM/30 ML UDC (FOR ORAL USE ONLY) PO SCH ×3 (07:10→21:51)
[2016-07-15] MEDS: FUROSEMIDE 20 MG TABLET (FP) PO SCH ×2 (07:16→14:29)
[2016-07-15] MEDS: SPIRONOLACTONE 25 MG TABLET (FP) PO SCH ×2 (10:46→18:52)
[2016-07-15] MEDS: ASPIRIN COATED 81 MG TABLET.EC PO SCH (10:46)
[2016-07-15] MEDS: RANITIDINE HCL 150 MG TABLET (FP) PO SCH ×2 (10:46→21:50)
[2016-07-15] MEDS: traZODone HCL 100 MG TABLET (FP) PO SCH (21:50)
[2016-07-15] MEDS: THIAMINE HCL 100 MG TABLET (FP) PO SCH (21:52)
[2016-07-16] MEDS ORDERED: METHADONE HCL 40 MG DISPERSABLE TABLET ONE (03:15)
[2016-07-16] MEDS ORDERED: METHADONE HCL 10 MG TABLET ONE (03:15)
[2016-07-16] MEDS: METHADONE 40 MG, METHADONE 10 MG PO SCH (06:57)
[2016-07-16] MEDS: LACTULOSE 20 GM/30 ML UDC (FOR ORAL USE ONLY) PO SCH ×3 (06:58→21:51)
[2016-07-16] MEDS: FUROSEMIDE 20 MG TABLET (FP) PO SCH ×2 (06:58→13:03)
[2016-07-16] MEDS: SPIRONOLACTONE 25 MG TABLET (FP) PO SCH ×2 (10:20→17:27)
[2016-07-16] MEDS: RANITIDINE HCL 150 MG TABLET (FP) PO SCH ×2 (10:20→21:51)
[2016-07-16] MEDS: ASPIRIN COATED 81 MG TABLET.EC PO SCH (10:20)
[2016-07-16] MEDS: THIAMINE HCL 100 MG TABLET (FP) PO SCH (21:51)
[2016-07-16] MEDS: traZODone HCL 100 MG TABLET (FP) PO SCH (21:51)
[2016-07-17] MEDS ORDERED: METHADONE HCL 10 MG TABLET ONE (03:10)
[2016-07-17] MEDS ORDERED: METHADONE HCL 40 MG DISPERSABLE TABLET ONE (03:10)
[2016-07-17] MEDS: LACTULOSE 20 GM/30 ML UDC (FOR ORAL USE ONLY) PO SCH ×3 (06:29→21:29)
[2016-07-17] MEDS: FUROSEMIDE 20 MG TABLET (FP) PO SCH ×2 (06:29→14:25)
[2016-07-17] MEDS: METHADONE 40 MG, METHADONE 10 MG PO SCH (06:29)
[2016-07-17] MEDS: SPIRONOLACTONE 25 MG TABLET (FP) PO SCH ×2 (10:00→17:50)
[2016-07-17] MEDS: RANITIDINE HCL 150 MG TABLET (FP) PO SCH ×2 (10:00→21:28)
[2016-07-17] MEDS: ASPIRIN COATED 81 MG TABLET.EC PO SCH (10:00)
[2016-07-17] MEDS: THIAMINE HCL 100 MG TABLET (FP) PO SCH (21:28)
[2016-07-17] MEDS: traZODone HCL 100 MG TABLET (FP) PO SCH (21:28)
[2016-07-18] MEDS ORDERED: METHADONE HCL 10 MG TABLET ONE (03:14)
[2016-07-18] MEDS ORDERED: METHADONE HCL 40 MG DISPERSABLE TABLET ONE (03:14)
[2016-07-18] MEDS: METHADONE 40 MG, METHADONE 10 MG PO SCH (06:51)
[2016-07-18] MEDS: LACTULOSE 20 GM/30 ML UDC (FOR ORAL USE ONLY) PO SCH (06:51)
[2016-07-18] MEDS: FUROSEMIDE 20 MG TABLET (FP) PO SCH (06:51)
[2016-07-18 07:43] VITALS: BP 122/75; PULSE 91; TEMP 98.1
--- NOTE | 2016-07-18 09:57 | PN ---
[id number] 78-92 16-18 97-122/66-75 Date of Session: 07/18/16 Chief Complaint:: Discharge visit HPI: Patient adressed Alcohol and Opioid dependence comorbid with Bipolar disorder. ROS: Significant for COPD,BA,Cirrhosis of the liver. Current Side Effect: No Lab tests ordered: No Lab tests reviewed: Yes Provider note:: Patient completed this program today.She has met her treatment goals and will continue to address her issues on outpatient basis.Patient continues to find that Trazodone 100 mg po hs Total face to face time:: 30 Mental Status Exam - Mental Status Exam Alert and Oriented to: Time, Place, Person Cognitive Function: Grossly Intact Patient Appearance: Unkempt Mood: Euthymic Affect: Mood Congruent Patient Behavior: Cooperative Speech Pattern: Clear Voice Loudness: Normal Thought Process: Goal Oriented Thought Disorder: Being Controlled Hallucinations: Denies Suicidal Ideation: Denies Homicidal Ideation: Denies Insight/Judgement: Fair Sleep: Fair Appetite: Fair Muscle strength/Tone: Normal Gait/Station: Normal Psychiatric Treatment Plan - Problem List (2) Asthma Qualifiers: Asthma severity: mild intermittent Asthma complication type: uncomplicated Qualified Code(s): J45.20 - Mild intermittent asthma, uncomplicated (3) Bipolar disorder Comment: Self-report. (4) COPD (chronic obstructive pulmonary disease) Qualifiers: COPD type: unspecified COPD Qualified Code(s): J44.9 - Chronic obstructive pulmonary disease, unspecified
== END 2016-07-18 08:50 | disposition home or self-care (01) | DRG 772 ==
LOC: YASAS 12:21 → Y3E 12:23
PROVIDERS: ADMIT Psychiatry & Neurology Psychiatry; ATTEND Psychiatry & Neurology Psychiatry
PROC: HZ42ZZZ Group Counseling for Substance Abuse Treatment, Cognitive-Behavioral (ICD-10-PCS; principal; 2016-07-18)
DX: F11.20 Opioid dependence, uncomplicated (principal); F10.20 Alcohol dependence, uncomplicated; F31.9 Bipolar disorder, unspecified; J45.20 Mild intermittent asthma, uncomplicated; J44.9 Chronic obstructive pulmonary disease, unspecified; K74.60 Unspecified cirrhosis of liver
CPT/HCPCS: 36415; 80053; 81003; 81015; 82140; 85025; 87389; 93005; 93010

== ENCOUNTER 2017-03-11 22:53 | Inpatient (IN) | payer OTHER ==
[2017-03-11] MEDS ORDERED: diazePAM CARPU-JECT 10 MG/2 ML DISP.SYRIN IVPUSH ONE (23:21)
[2017-03-11] MEDS ORDERED: ONDANSETRON 4 MG/2 ML VIAL IVPUSH ONE (23:21)
[2017-03-11] MEDS ORDERED: SODIUM CHLORIDE 1,000 ML IV STA (23:21)
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
[2017-03-12] MEDS ORDERED: ONDANSETRON 4 MG/2 ML VIAL ONE (00:06)
[2017-03-12 00:08] LABS: BASOPHIL 0.7 % (0-2.0); EOSINOPHIL 0.1 % (0-4.5); MCH 32.2 pg (25.7-33.7); MCHC 33.4 g/dl (32.0-36.0); MEAN CELL VOLUME 96.4 fl (80-96); MEAN PLT VOLUME 9.6 fl (7.5-11.1); NEUTROPHILS 72.4 % (42.8-82.8); PLATELET COUNT 64 K/MM3 (134-434); RDW 14.8 % (11.6-15.6)
[2017-03-12] MEDS ORDERED: LORazepam 2 MG/ML SDV VIAL ONE ×2 (00:13→01:30)
[2017-03-12 00:32] LABS: ALBUMIN 2.8 g/dl (3.4-5.0); ANION GAP 14 (8-16); BILIRUBIN,TOTAL 2.8 mg/dL (0.2-1.0); CALCIUM 7.2 mg/dL (8.5-10.1); CO2 25 mmol/L (21-32); CREATININE 0.7 mg/dL (0.55-1.02); GLUCOSE,RANDOM 76 mg/dL (74-106); SGOT/AST 297 U/L (15-37); SGPT/ALT 135 U/L (12-78); TOT PROT 8.8 g/dl (6.4-8.2)
[2017-03-12 00:33] LABS: ALK PHOS 137 U/L (45-117)
[2017-03-12] MEDS ORDERED: chlordiazePOXIDE HCL 25 MG CAPSULE PO ONE (01:06)
[2017-03-12 01:26] LABS: URINE APPEARANCE CLEAR; URINE BILIRUBIN NEGATIVE (NEGATIVE); URINE BLOOD 1+ (NEGATIVE); URINE COLOR AMBER; URINE GLUCOSE (UA) NEGATIVE (NEGATIVE); URINE KETONE NEGATIVE (NEGATIVE); URINE LEUK ESTERASE TRACE (NEGATIVE); URINE NITRITE NEGATIVE (NEGATIVE); URINE UROBILINOGEN 4.0 E.U/dl mg/dL (0.2-1.0)
[2017-03-12 01:29] LABS: URINE PROTEIN 1+ (NEGATIVE)
[2017-03-12] MEDS ORDERED: chlordiazePOXIDE HCL 25 MG CAPSULE ONE (01:30)
[2017-03-12 01:32] LABS: URINE HYALINE CAST 9 /lpf; URINE MUCUS RARE; URINE WBC 2 /hpf (3-5)
[2017-03-12 02:23] LABS: URINE MARIJUANA THC NEGATIVE ng/ml (CUTOFF=50)
--- NOTE | 2017-03-12 03:00 | PN ---
Teaching Attending Note Name of Resident: Jef Bowles ATTENDING PHYSICIAN STATEMENT I saw and evaluated the patient. I reviewed the resident's note and discussed the case with the resident. I agree with the resident's findings and plan as documented. OBJECTIVE: ASSESSMENT AND PLAN: The patient is a 62 year old female with a significant past medical history of polysubstance abuse (IV heroin and alcohol) who presented to the ED with abdominal pain and is being admitted to inpatient services with a diagnosis of alcohol withdrawal and pancreatitis. #Pancreatitis Presumed alcoholic Elevated bilirubin, alk phos and transaminases noted Suspect that this is due to alcohol abuse but must rule out choledocholithiasis She thinks she may have had a cholecystectomy but is not sure Obtain abd US Aggressive IV hydration with NS Pain control with morphine GI consult #Alcohol witdrawal Librium and Ativan Detox consult See resident note for full details
[2017-03-12] MEDS ORDERED: SODIUM CHLORIDE 0.45% 1,000 ML IV SCH (03:15)
[2017-03-12] MEDS ORDERED: POTASSIUM CHLORIDE TABS 20 MEQ TABLET.ER (FP) PO ONE (03:24)
[2017-03-12] MEDS ORDERED: chlordiazePOXIDE HCL 25 MG CAPSULE PO PRN (03:27)
[2017-03-12] MEDS ORDERED: DEXTROSE 5%-NORMAL SALINE 1,000 ML IV SCH ×2 (03:30→08:08)
[2017-03-12] MEDS ORDERED: FOLIC ACID INJECTION - 1 MG, THIAMINE HCL 100 MG, MULTIVIT INJECTION ADULT 10 ML in SOD... IVPB ONE (04:30)
--- NOTE | 2017-03-12 04:44 | HP ---
CHIEF COMPLAINT:vomiting, abd pain, alcohol withdrawal HISTORY OF PRESENT ILLNESS: 62 y/o F w/PMH of polysubstance abuse (IV heroin and alcohol use) presented to the ER with epigastric abd pain, nausea, vomiting. Pt reports last drink being yesterday morning at 10 am and she drank 1 pint of vodka. She states before this she drank one pint of vodka daily. She checked into rehab/detox today but began feeling her presenting symptoms. She also c/o of shaking/tremors in her arms and reports the epigastric abd pain as radiating to her back. She reports chills but no fevers. She denies CP, SOB, blood in vomit, blood in stool, recent drug use. She was found to have elevated lipase here. ER course was notable for: (1) ativan, librium, zofran, ns (2) (3) PAST MEDICAL HISTORY:polysubstance abuse (IV heroin and alcohol use) PAST SURGICAL HISTORY: cholecystectomy Social History: Smoking: denies Alcohol: 1 pint vodka/day Drugs: denies, reports last use of heroin was 7-8 months ago Family History: n-c Allergies No Known Allergies Allergy (Verified 03/11/17 23:11) confirmed by Kyler Lagos RN 12/16/2015 HOME MEDICATIONS: Home Medications Medication Instructions Recorded Quetiapine Fumarate [Seroquel -] 100 mg PO HS 09/25/15 Zolpidem Tartrate [Ambien] 10 mg PO HS 12/16/15 Bupropion HCl [Wellbutrin -] 75 mg PO DAILY #30 tablet 01/04/16 Trazodone HCl [Desyrel -] 50 mg PO HS #30 tablet 01/04/16 Albuterol Sulfate Inhaler - 2 puff IH Q4H PRN #1 inhaler 07/05/16 [Ventolin HFA Inhaler -] Methadone [Dolophine -] 60 mg PO DAILY 07/05/16 Ranitidine [Zantac -] 150 mg PO BID #60 tablet 07/05/16 Trazodone HCl [Desyrel -] 100 mg PO HS #30 tablet 07/15/16 Amlodipine Besylate [Norvasc -] 5 mg PO BID #60 tablet 07/18/16 Aspirin [ASA -] 81 mg PO DAILY #30 tab.chew 07/18/16 REVIEW OF SYSTEMS CONSTITUTIONAL: +chills, loss of appetite Absent: fever CARDIOVASCULAR: Absent: chest pain RESPIRATORY: Absent: cough, shortness of breath GASTROINTESTINAL:+abd pain, nausea, vomiting GENITOURINARY: Absent: dysuria NEUROLOGIC: +headache PHYSICAL EXAMINATION Vital Signs - 24 hr 03/12/17 03/12/17 01:45 04:12 Pulse Rate [ 87 100 H Apical] Respiratory 18 18 Rate Blood Pressure 149/77 134/71 [Left Arm] O2 Sat by Pulse 96 96 Oximetry (%) GENERAL: Awake, alert, and fully oriented, tremerous. Pt with mild asterixis, and b/l upper extremities w/tremors HEAD: Normal with no signs of trauma NECK: Normal range of motion LUNGS: Breath sounds equal, clear to auscultation bilaterally. HEART: Regular rate and rhythm, normal S1 and S2 ABDOMEN: Distened, epigastric tenderness, BS+ LOWER EXTREMITIES: 2+ pitting edema b/l LE. warm, well-perfused. No calf tenderness. NEUROLOGICAL: Normal speech. Gait not observed. PSYCHIATRIC: Cooperative. Good eye contact. SKIN: Warm, dry CBCD WBC 5.0 K/mm3 (4.0-10.0) 03/12/17 00:04 RBC 3.34 M/mm3 (3.60-5.2) L 03/12/17 00:04 Hgb 10.8 GM/dL (10.7-15.3) 03/12/17 00:04 Hct 32.2 % (32.4-45.2) L 03/12/17 00:04 MCV 96.4 fl (80-96) H 03/12/17 00:04 MCHC 33.4 g/dl (32.0-36.0) 03/12/17 00:04 RDW 14.8 % (11.6-15.6) D 03/12/17 00:04 Plt Count 64 K/MM3 (134-434) L D 03/12/17 00:04 MPV 9.6 fl (7.5-11.1) 03/12/17 00:04 CMP Sodium 137 mmol/L (136-145) 03/12/17 00:04 Potassium 3.5 mmol/L (3.5-5.1) D 03/12/17 00:04 Chloride 98 mmol/L (98-107) 03/12/17 00:04 Carbon Dioxide 25 mmol/L (21-32) 03/12/17 00:04 Anion Gap 14 (8-16) 03/12/17 00:04 BUN 12 mg/dL (7-18) D 03/12/17 00:04 Creatinine 0.7 mg/dL (0.55-1.02) D 03/12/17 00:04 Creat Clearance w eGFR > 60 (>60) 03/12/17 00:04 Random Glucose 76 mg/dL (74-106) 03/12/17 00:04 Calcium 7.2 mg/dL (8.5-10.1) L 03/12/17 00:04 Total Bilirubin 2.8 mg/dL (0.2-1.0) H 03/12/17 00:04 AST 297 U/L (15-37) H D 03/12/17 00:04 ALT 135 U/L (12-78) H D 03/12/17 00:04 Alkaline Phosphatase 137 U/L (45-117) H 03/12/17 00:04 Total Protein 8.8 g/dl (6.4-8.2) H 03/12/17 00:04 Albumin 2.8 g/dl (3.4-5.0) L 03/12/17 00:04 Laboratory Tests 03/12/17 00:04 Lipase 764 H Urine Test Results Urine Color Elva 03/12/17 01:11 Urine Appearance Clear 03/12/17 01:11 Urine pH 6.0 (5.0-8.0) 03/12/17 01:11 Urine Protein 1+ (NEGATIVE) H 03/12/17 01:11 Urine Glucose (UA) Negative (NEGATIVE) 03/12/17 01:11 Urine Ketones Negative (NEGATIVE) 03/12/17 01:11 Urine Blood 1+ (NEGATIVE) H 03/12/17 01:11 Urine Nitrite Negative (NEGATIVE) 03/12/17 01:11 Urine Bilirubin Negative (NEGATIVE) 03/12/17 01:11 Urine RBC None /hpf (0-3) 03/12/17 01:11 Urine WBC 2 /hpf (3-5) 03/12/17 01:11 Ur Epithelial Cells Rare /hpf (FEW) 03/12/17 01:11 Urine Mucus Rare 03/12/17 01:11 EKG: QTc 511 ASSESSMENT/PLAN: 62 y/o F w/PMH of polysubstance abuse (IV heroin and alcohol use) presented to the ER with epigastric abd pain, nausea, vomiting. Admitted for alcohol withdrawal and pancreatitis. -Alcohol withdrawal -Ativan 2 mg IV once ordered -Librium protocol -Detox consult -banana bag -Pancreatitis -likely secondary to alcohol use -banana bag followed by D5-NS @ 200 ml/hr -Abd U/S ordered -f/u triglycerides -pain control with morphine if necessary -advance diet as tolerated -avoid qt prolonging drugs such as zofran -Transaminitis likely secondary to alcohol use -Abd U/S ordered -trend labs -Prolonged QTc -Avoid qt prolonging agents. QTc 511 -IVDA hx -on methadone, confirm med/dose Visit type - Emergency Visit Emergency Visit: Yes ED Registration Date: 03/12/17 Care time: The patient presented to the Emergency Department on the above date and was hospitalized for further evaluation of their emergent condition. - New Patient This patient is new to me today: Yes Date on this admission: 03/12/17 - Critical Care Critical Care patient: No
[2017-03-12 04:59] VITALS: BMI 31.9
[2017-03-12] MEDS: chlordiazePOXIDE HCL 25 MG CAPSULE PO SCH ×4 (05:48→22:21)
[2017-03-12 06:43] LABS: MAGNESIUM 0.9 mg/dL (1.8-2.4); PHOSPHOROUS 2.5 mg/dL (2.5-4.9)
--- NOTE | 2017-03-12 08:35 | EKG ---
Test Reason : Blood Pressure : / mmHG Vent. Rate : 089 BPM Atrial Rate : 089 BPM P-R Int : 156 ms QRS Dur : 074 ms QT Int : 420 ms P-R-T Axes : 048 000 036 degrees QTc Int : 511 ms NORMAL SINUS RHYTHM PROLONGED QT ABNORMAL ECG WHEN COMPARED WITH ECG OF 09-JUL-2016 11:32, NO SIGNIFICANT CHANGE WAS FOUND Confirmed by MD ROSALINE, OTTO ([id number]) on 03/12/2017 8:35:02 AM Referred By: Confirmed By:OTTO WAGGONER MD
[2017-03-12 08:59] LABS: ALBUMIN 2.6 g/dl (3.4-5.0); ANION GAP 9 (8-16); BILIRUBIN,TOTAL 3.5 mg/dL (0.2-1.0); CO2 24 mmol/L (21-32); CREATININE 0.6 mg/dL (0.55-1.02); GLUCOSE,RANDOM 54 mg/dL (74-106); PHOSPHOROUS 1.8 mg/dL (2.5-4.9); SGOT/AST 287 U/L (15-37); SGPT/ALT 128 U/L (12-78); TOT PROT 8.5 g/dl (6.4-8.2)
[2017-03-12 09:00] LABS: ALK PHOS 132 U/L (45-117)
[2017-03-12] MEDS ORDERED: ONDANSETRON 4 MG/2 ML VIAL IVPB ONE (09:30)
[2017-03-12] MEDS: DEXTROSE 5%-NORMAL SALINE 1,000 ML IV SCH ×3 (10:25→22:56)
[2017-03-12] MEDS ORDERED: MAGNESIUM SULF 50% (8.12 MEQ/2 ML-1 GM VIAL) IVPB ONE (12:00)
[2017-03-12] MEDS ORDERED: NAPH,MB-DB/K PH,MBDB POWDER PACKET PO ONE (12:00)
[2017-03-12] MEDS ORDERED: METHADONE HCL 10 MG TABLET PO SCH (12:45)
[2017-03-12] MEDS ORDERED: METHADONE HCL 10 MG TABLET ONE (13:55)
[2017-03-12] MEDS ORDERED: METHADONE HCL 40 MG DISPERSABLE TABLET ONE (13:56)
[2017-03-12] MEDS: METHADONE 40 MG, METHADONE 20 MG PO SCH (13:58)
--- NOTE | 2017-03-12 18:18 | PN ---
Progress Note (short form) - Note Progress Note: Subjective: no fever or hcills, has abd pain , no CP or SOB . Objective: Vital Signs: Last Vital Signs Temp Pulse Resp BP Pulse Ox 98.6 F 117 H 20 150/92 98 03/12/17 15:07 03/12/17 15:07 03/12/17 15:07 03/12/17 15:07 03/12/17 09:00 Laboratory Results - last 24 hr 03/12/17 03/12/17 03/12/17 00:04 00:04 00:04 WBC 5.0 RBC 3.34 L Hgb 10.8 Hct 32.2 L MCV 96.4 H MCH 32.2 MCHC 33.4 RDW 14.8 D Plt Count 64 L D MPV 9.6 Neutrophils % 72.4 D Lymphocytes % 16.2 D Monocytes % 10.6 H Eosinophils % 0.1 D Basophils % 0.7 Sodium 137 Potassium 3.5 D Chloride 98 Carbon Dioxide 25 Anion Gap 14 BUN 12 D Creatinine 0.7 D Creat Clearance w eGFR > 60 Random Glucose 76 Calcium 7.2 L Phosphorus Magnesium Total Bilirubin 2.8 H AST 297 H D ALT 135 H D Alkaline Phosphatase 137 H Total Protein 8.8 H Albumin 2.8 L Triglycerides Lipase 764 H Urine Color Urine Appearance Urine pH Ur Specific [place] Urine Protein Urine Glucose (UA) Urine Ketones Urine Blood Urine Nitrite Urine Bilirubin Urine Urobilinogen Urine RBC Urine WBC Ur Epithelial Cells Hyaline Casts Urine Mucus Opiates Screen Methadone Screen Barbiturate Screen Phencyclidine Screen Ur Amphetamines Screen MDMA (Ecstasy) Screen Benzodiazepines Screen Cocaine Screen U Marijuana (THC) Screen Alcohol, Quantitative 146.6 H* 03/12/17 03/12/17 03/12/17 00:04 01:11 01:11 WBC RBC Hgb Hct MCV MCH MCHC RDW Plt Count MPV Neutrophils % Lymphocytes % Monocytes % Eosinophils % Basophils % Sodium Potassium Chloride Carbon Dioxide Anion Gap BUN Creatinine Creat Clearance w eGFR Random Glucose Calcium Phosphorus 2.5 Magnesium 0.9 L Total Bilirubin AST ALT Alkaline Phosphatase Total Protein Albumin Triglycerides Lipase Urine Color Elva Urine Appearance Clear Urine pH 6.0 Ur Specific [place] 1.020 Urine Protein 1+ H Urine Glucose (UA) Negative Urine Ketones Negative Urine Blood 1+ H Urine Nitrite Negative Urine Bilirubin Negative Urine Urobilinogen 4.0 e.u/dl H Urine RBC None Urine WBC 2 Ur Epithelial Cells Rare Hyaline Casts 9 Urine Mucus Rare Opiates Screen Negative Methadone Screen Positive Barbiturate Screen Negative Phencyclidine Screen Negative Ur Amphetamines Screen Negative MDMA (Ecstasy) Screen Negative Benzodiazepines Screen Negative Cocaine Screen Negative U Marijuana (THC) Screen Negative Alcohol, Quantitative 03/12/17 03/12/17 07:30 08:30 WBC RBC Hgb Hct MCV MCH MCHC RDW Plt Count MPV Neutrophils % Lymphocytes % Monocytes % Eosinophils % Basophils % Sodium 136 Cancelled Potassium 3.8 Cancelled Chloride 103 Cancelled Carbon Dioxide 24 Cancelled Anion Gap 9 Cancelled BUN 11 Cancelled Creatinine 0.6 Cancelled Creat Clearance w eGFR > 60 Cancelled Random Glucose 54 L D Cancelled Calcium 7.0 L Cancelled Phosphorus 1.8 L D Cancelled Magnesium 1.0 L Cancelled Total Bilirubin 3.5 H D Cancelled AST 287 H Cancelled ALT 128 H Cancelled Alkaline Phosphatase 132 H Cancelled Total Protein 8.5 H Cancelled Albumin 2.6 L Cancelled Triglycerides 146 D Lipase Urine Color Urine Appearance Urine pH Ur Specific [place] Urine Protein Urine Glucose (UA) Urine Ketones Urine Blood Urine Nitrite Urine Bilirubin Urine Urobilinogen Urine RBC Urine WBC Ur Epithelial Cells Hyaline Casts Urine Mucus Opiates Screen Methadone Screen Barbiturate Screen Phencyclidine Screen Ur Amphetamines Screen MDMA (Ecstasy) Screen Benzodiazepines Screen Cocaine Screen U Marijuana (THC) Screen Alcohol, Quantitative Physical Exam: mild distress. AAOx3. nO hystagmus CV: RRR Lungs : CTAB ABd : soft, obese, ND , TTP in epigastric area , no rebound tenderness or guarding . Ext : no edema A/P : 62 y/o lady with h/o ALcohol abuse and choolecystectomy , who presented with abd pain and was found to have acute pancreatitis 1- Acute alcoholic pancreatitis : NL TG, no hypercalcemia, no cholelithiasis. - Hypoglycemic to 54 , so will resuscitate with D5NS 150cc /hr - NPO - US with no stones, dilated CBD is old - pain control : she is on methadone. avoid opioids unless really needed, can give 2 mg of morphine 2- Alcohol withdrawal : - Cont librium - Does not have any signs of Wernicke' s - given Thiamine befoer D5was started - will start Thiamine 100 iV daily - cont librium protocol 3- ALcoholic hepatitis : - monitor lFTS 4-hypomagnesemia adn hypophosphatemia : replete and repeat Dispo : HLOC Code status : D/W PT , DNR/DNI . pt is capable of making decisions Visit type - Emergency Visit Emergency Visit: Yes ED Registration Date: 03/12/17 Care time: The patient presented to the Emergency Department on the above date and was hospitalized for further evaluation of their emergent condition. - New Patient This patient is new to me today: Yes Date on this admission: 03/12/17 - Critical Care Critical Care patient: No
[2017-03-12] MEDS ORDERED: ACETAMINOPHEN 650 MG/20.3 ML ORAL SOLUTION (CUPS) PO ONE (18:37)
[2017-03-13] MEDS: chlordiazePOXIDE HCL 25 MG CAPSULE PO SCH ×4 (05:22→22:05)
[2017-03-13] MEDS: DEXTROSE 5%-NORMAL SALINE 1,000 ML IV SCH ×3 (05:54→15:34)
[2017-03-13 07:23] LABS: BASOPHIL 0.8 % (0-2.0); EOSINOPHIL 1.1 % (0-4.5); MCH 31.9 pg (25.7-33.7); MCHC 33.1 g/dl (32.0-36.0); MEAN CELL VOLUME 96.2 fl (80-96); MEAN PLT VOLUME 10.1 fl (7.5-11.1); NEUTROPHILS 49.1 % (42.8-82.8); PLATELET COUNT 48 K/MM3 (134-434); RDW 14.5 % (11.6-15.6); WHITE BLOOD COUNT 3.5 K/mm3 (4.0-10.0)
[2017-03-13 08:26] LABS: ALBUMIN 2.3 g/dl (3.4-5.0); ALK PHOS 113 U/L (45-117); ANION GAP 9 (8-16); BILIRUBIN,TOTAL 4.2 mg/dL (0.2-1.0); CO2 26 mmol/L (21-32); CREATININE 0.7 mg/dL (0.55-1.02); GLUCOSE,RANDOM 131 mg/dL (74-106); MAGNESIUM 1.3 mg/dL (1.8-2.4); PHOSPHOROUS 1.3 mg/dL (2.5-4.9); SGOT/AST 236 U/L (15-37); SGPT/ALT 111 U/L (12-78); TOT PROT 7.3 g/dl (6.4-8.2)
[2017-03-13 08:55] LABS: CALCIUM 6.6 mg/dL (8.5-10.1)
[2017-03-13] MEDS ORDERED: METHADONE HCL 10 MG TABLET ONE (08:55)
[2017-03-13] MEDS ORDERED: METHADONE HCL 40 MG DISPERSABLE TABLET ONE (08:55)
[2017-03-13] MEDS: THIAMINE HCL 200 MG/2 ML VIAL IVPB SCH (09:05)
[2017-03-13] MEDS: METHADONE 40 MG, METHADONE 20 MG PO SCH (09:06)
[2017-03-13] MEDS ORDERED: MAGNESIUM SULF 50% (8.12 MEQ/2 ML-1 GM VIAL) IVPB ONE ×2 (09:45→10:30)
[2017-03-13] MEDS ORDERED: NAPH,MB-DB/K PH,MBDB POWDER PACKET PO ONE ×3 (10:30→20:00)
[2017-03-13] MEDS: KCL 10 MEQ IVPB 100 ML IVPB SCH ×3 (10:36→15:36)
[2017-03-13] MEDS ORDERED: MAGNESIUM SULF 50% (8.12 MEQ/2 ML-1 GM VIAL) ONE (10:45)
--- NOTE | 2017-03-13 13:28 | CONSULT ---
Consult Detox [facility] Reason for Current Admission/Consult: Alcohol withdrawal sx. Referred by:: Jef Bowles Res - History History of Present Illness: 62 y/o woman with a long hx. of alcoholism is admitted because of severe withdrawal sx.. Pt. is currently on Methadone 60mg daily, has hx. of Cirrhosis of the liver. - History Source History Provided By: Patient, Medical Record Limitations to Obtaining History: No Limitations - Alcohol/Substance Use Hx Alcohol Use: Yes - Current Drug/Alcohol Use Alcohol Route: Oral Frequency: Daily Amount used: Vodka 1 liter Age of first use: 12 Date of Last Use: 03/12/17 - Past Medical History ...LMP: 07/10/06 ...: No - Significant Medical Findings: Laboratory Last Values WBC 5.1 K/mm3 (4.0-10.0) 03/16/17 06:00 RBC 3.37 M/mm3 (3.60-5.2) L 03/16/17 06:00 Hgb 10.7 GM/dL (10.7-15.3) 03/16/17 06:00 Hct 33.0 % (32.4-45.2) 03/16/17 06:00 MCV 98.2 fl (80-96) H 03/16/17 06:00 MCH 31.7 pg (25.7-33.7) 03/16/17 06:00 MCHC 32.3 g/dl (32.0-36.0) 03/16/17 06:00 RDW 15.2 % (11.6-15.6) 03/16/17 06:00 Plt Count 77 K/MM3 (134-434) L 03/16/17 06:00 MPV 10.4 fl (7.5-11.1) 03/16/17 06:00 Total Counted 100 03/15/17 06:00 Neutrophils % 47.2 % (42.8-82.8) 03/16/17 06:00 Neutrophils % (Manual) 61 % (42.8-82.8) 03/15/17 06:00 Lymphocytes % 33.0 % (8-40) 03/16/17 06:00 Lymphocytes % (Manual) 23 % (8-40) D 03/15/17 06:00 Monocytes % 18.3 % (3.8-10.2) H 03/16/17 06:00 Monocytes % (Manual) 11 % (3.8-10.2) H 03/15/17 06:00 Eosinophils % 0.6 % (0-4.5) 03/16/17 06:00 Eosinophils % (Manual) 2 % (0-4.5) 03/15/17 06:00 Basophils % 0.9 % (0-2.0) 03/16/17 06:00 Basophils % (Manual) 3 % (0-2.0) H 03/15/17 06:00 Platelet Estimate Decreased (NORMAL) 03/15/17 06:00 Sodium 138 mmol/L (136-145) 03/16/17 06:00 Potassium 4.0 mmol/L (3.5-5.1) 03/16/17 06:00 Chloride 103 mmol/L (98-107) 03/16/17 06:00 Carbon Dioxide 28 mmol/L (21-32) 03/16/17 06:00 Anion Gap 7 (8-16) L 03/16/17 06:00 BUN 19 mg/dL (7-18) H D 03/16/17 06:00 Creatinine 1.0 mg/dL (0.55-1.02) D 03/16/17 06:00 Creat Clearance w eGFR > 60 (>60) 03/15/17 06:00 POC Glucometer 92 UNITS (()) 03/16/17 06:43 Random Glucose 97 mg/dL (74-106) 03/16/17 06:00 Lactic Acid 1.1 mmol/L (0.4-2.0) 03/16/17 06:00 Calcium 8.1 mg/dL (8.5-10.1) L 03/16/17 06:00 Phosphorus 3.1 mg/dL (2.5-4.9) 03/16/17 06:00 Magnesium 1.8 mg/dL (1.8-2.4) D 03/16/17 06:00 Total Bilirubin 4.2 mg/dL (0.2-1.0) H D 03/15/17 06:00 AST 170 U/L (15-37) H 03/15/17 06:00 ALT 99 U/L (12-78) H 03/15/17 06:00 Alkaline Phosphatase 132 U/L (45-117) H 03/15/17 06:00 Total Protein 7.6 g/dl (6.4-8.2) 03/15/17 06:00 Albumin 2.4 g/dl (3.4-5.0) L 03/15/17 06:00 Triglycerides 146 mg/dL (35-160) D 03/12/17 07:30 Lipase 764 U/L (73-393) H 03/12/17 00:04 Urine Color Elva 03/12/17 01:11 Urine Appearance Clear 03/12/17 01:11 Urine pH 6.0 (5.0-8.0) 03/12/17 01:11 Ur Specific [place] 1.020 (1.005-1.025) 03/12/17 01:11 Urine Protein 1+ (NEGATIVE) H 03/12/17 01:11 Urine Glucose (UA) Negative (NEGATIVE) 03/12/17 01:11 Urine Ketones Negative (NEGATIVE) 03/12/17 01:11 Urine Blood 1+ (NEGATIVE) H 03/12/17 01:11 Urine Nitrite Negative (NEGATIVE) 03/12/17 01:11 Urine Bilirubin Negative (NEGATIVE) 03/12/17 01:11 Urine Urobilinogen 4.0 e.u/dl mg/dL (0.2-1.0) H 03/12/17 01:11 Urine RBC None /hpf (0-3) 03/12/17 01:11 Urine WBC 2 /hpf (3-5) 03/12/17 01:11 Ur Epithelial Cells Rare /hpf (FEW) 03/12/17 01:11 Hyaline Casts 9 /lpf 03/12/17 01:11 Urine Mucus Rare 03/12/17 01:11 Opiates Screen Negative ng/ml (NOXLET=105) 03/12/17 01:11 Methadone Screen Positive ng/ml (NJXZPJ=785) 03/12/17 01:11 Barbiturate Screen Negative ng/ml (JVASOG=069) 03/12/17 01:11 Phencyclidine Screen Negative ng/ml (CUTOFF=25) 03/12/17 01:11 Ur Amphetamines Screen Negative ng/ml (FXWGER=700) 03/12/17 01:11 MDMA (Ecstasy) Screen Negative ng/ml (KISENJ=090) 03/12/17 01:11 Benzodiazepines Screen Negative ng/ml (TVWQVE=190) 03/12/17 01:11 Cocaine Screen Negative ng/ml (MZNOGQ=360) 03/12/17 01:11 U Marijuana (THC) Screen Negative ng/ml (CUTOFF=50) 03/12/17 01:11 Alcohol, Quantitative 146.6 mg/dl (0-5) H* 03/12/17 00:04 labs noted CIWA Score - CIWA Score Nausea/Vomitin Muscle Tremors: 4-Moderate,w/Arms Extend Anxiety: 4-Mod. Anxious/Guarded Agitation: 4-Moderately Restless Paroxysmal Sweats: 3 Orientation: 1-Uncertain about Date Tacttile Disturbances: 1-Very Mild Itch/Numbness Auditory Disturbances: 0-None Visual Disturbances: 0-None Headache: 0-None Present CIWA-Ar Total Score: 19 Assessment Plan - Diagnosis (1) Cirrhosis of liver Status: Chronic (2) Alcohol dependence with uncomplicated withdrawal Status: Acute (3) Asthma Status: Chronic Qualifiers: Asthma severity: mild intermittent Asthma complication type: uncomplicated Qualified Code(s): J45.20 - Mild intermittent asthma, uncomplicated - Plan Plan: Detox with librium Encourage pt. to attend IOP - Medication Detox Regimen/Protocol: Librium
--- NOTE | 2017-03-13 15:13 | PN ---
Physical Exam: SUBJECTIVE: Patient seen and examined. No acute events overnight. Pt denies abdominal pain, nausea, emesis, diarrhea, constipation, SOB, chest pain, and dysuria. She reports that she has an appetite. OBJECTIVE: Vital Signs Period Temp Pulse Resp BP Sys/Craig Pulse Ox Last 24 Hr 98.1 F-98.6 F 89-126 18-20 140-151/70-93 98 GENERAL: The patient is awake, lethargic, AAOx3 HEAD: Normal with no signs of trauma. EYES: PERRL, extraocular movements intact, sclera anicteric, conjunctiva clear. No ptosis. ENT: Ears normal, nares patent, oropharynx clear without exudates, moist mucous membranes. NECK: Trachea midline, full range of motion, supple. LUNGS: Breath sounds equal, clear to auscultation bilaterally, no wheezes, no crackles, no accessory muscle use. HEART: Regular rate and rhythm, S1, S2 without murmur, rub or gallop. ABDOMEN: Soft, minimally tender in upper quadrants, minimally distended, hypoactive bowel sounds, no guarding, no rebound, no hepatosplenomegaly, no masses. EXTREMITIES: 2+ edema in LLE b/l NEUROLOGICAL: Cranial nerves II through XII grossly intact. Normal speech, gait not observed. Laboratory Results - last 24 hr 03/12/17 03/13/17 03/13/17 18:26 00:51 05:35 WBC RBC Hgb Hct MCV MCH MCHC RDW Plt Count MPV Neutrophils % Lymphocytes % Monocytes % Eosinophils % Basophils % Sodium Potassium Chloride Carbon Dioxide Anion Gap BUN Creatinine Creat Clearance w eGFR POC Glucometer 111 143 129 Random Glucose Lactic Acid Calcium Phosphorus Magnesium Total Bilirubin AST ALT Alkaline Phosphatase Total Protein Albumin 03/13/17 03/13/17 03/13/17 06:30 06:30 13:20 WBC 3.5 L RBC 3.08 L Hgb 9.8 L Hct 29.6 L MCV 96.2 H MCH 31.9 MCHC 33.1 RDW 14.5 Plt Count 48 L D MPV 10.1 Neutrophils % 49.1 D Lymphocytes % 36.4 D Monocytes % 12.6 H Eosinophils % 1.1 D Basophils % 0.8 Sodium 139 Potassium 3.1 L Chloride 104 Carbon Dioxide 26 Anion Gap 9 BUN 7 D Creatinine 0.7 Creat Clearance w eGFR > 60 POC Glucometer Random Glucose 131 H D Lactic Acid 1.6 Calcium 6.6 L* Phosphorus 1.3 L D Magnesium 1.3 L D Total Bilirubin 4.2 H AST 236 H ALT 111 H Alkaline Phosphatase 113 Total Protein 7.3 Albumin 2.3 L Active Medications Generic Name Dose Route Start Last Admin Trade Name Freq PRN Reason Stop Dose Admin Chlordiazepoxide HCl 25 mg 03/12/17 03:27 Librium - PO 03/15/17 03:26 Q4H PRN WITHDRAWAL(CONT SUBST) Chlordiazepoxide HCl 25 mg 03/13/17 05:00 03/13/17 10:36 Librium - PO 03/13/17 23:01 25 mg [id number] ROSALIO Administration Chlordiazepoxide HCl 15 mg 03/14/17 05:00 Librium - PO 03/14/17 23:01 [id number] ROSALIO Dextrose/Sodium Chloride 1,000 mls @ 150 mls/hr 03/12/17 08:10 03/13/17 09:16 D5-Ns - IV Not Given ASDIR ROSALIO Methadone HCl 40 mg/ Methadone 60 mg 03/12/17 13:15 03/13/17 09:06 HCl 20 mg PO 60 mg DAILY ROSALIO Administration Thiamine HCl 100 mg 03/13/17 10:00 03/13/17 09:05 Vitamin B1 Injection - IVPB 100 mg DAILY ROSALIO Administration ASSESSMENT/PLAN: 62F w/ hx of polysubstance abuse who presented with epigastric pain and n/v, admitted for alcohol withdrawal and acute pancreatitis. #Acute pancreatitis- likely 2/2 EtoH -diet advanced to clear liquids, monitor if pt can tolerate by assessing pain and nausea -continue D5-NS at 150 cc/hr. Will remove D5 if pt can tolerate po. Will decrease rate to 100 cc/hr tonight to prevent pulmonary edema -pain control with methadone 60mg -lactic acid of 1.6 today #Alcohol withdrawal -Detox on board- Dr. Lilly -continue librium taper -continue thiamine 100mg IV qd #Elevated LFTs- likely 2/2 alcoholic hepatitis -trending down #Pancytopenia- likely 2/2 alcoholic hepatitis -continue trending #Hypokalemia -repleted -trend K #Hypocalcemia -corrected calcium of 7.9 -trend #Hypomagnesemia -1.3 today, repleted -trend #Hypophosphatemia -1.3 today, repleted -trend #FEN/PPx -D5-NS at 150 -multiple abnormalities, repleting -clear liquid diet -no GI ppx indicated -SCDs, lovenox and heparin held due to low platelets Darrel Ross MD PGY1 Visit type - Emergency Visit Emergency Visit: Yes ED Registration Date: 03/12/17 Care time: The patient presented to the Emergency Department on the above date and was hospitalized for further evaluation of their emergent condition. - New Patient This patient is new to me today: Yes Date on this admission: 03/13/17 - Critical Care Critical Care patient: No
[2017-03-13] MEDS ORDERED: DEXTROSE 5%-NORMAL SALINE 1,000 ML IV SCH (17:10)
[2017-03-13 17:20] LABS: ANION GAP 7 (8-16); CO2 25 mmol/L (21-32); CREATININE 0.6 mg/dL (0.55-1.02); GLUCOSE,RANDOM 155 mg/dL (74-106); PHOSPHOROUS 1.5 mg/dL (2.5-4.9)
[2017-03-13 17:26] LABS: CALCIUM 6.8 mg/dL (8.5-10.1); MAGNESIUM 1.9 mg/dL (1.8-2.4)
--- NOTE | 2017-03-13 20:13 | PN ---
Teaching Attending Note Name of Resident: Darrel Ross ATTENDING PHYSICIAN STATEMENT I saw and evaluated the patient. I reviewed the resident's note and discussed the case with the resident. I agree with the resident's findings and plan as documented. SUBJECTIVE: no fever or chills . abd pain better . OBJECTIVE: mild distress. AAOx3. nO hystagmus CV: RRR Lungs : CTAB ABd : soft, obese, ND , TTP in epigastric area , no rebound tenderness or guarding . Ext : no edema A/P : 62 y/o lady with h/o ALcohol abuse and choolecystectomy , who presented with abd pain and was found to have acute pancreatitis 1- Acute alcoholic pancreatitis : NL TG, no hypercalcemia, no cholelithiasis. -decrease IVF - start clears - pain control 2- Alcohol withdrawal : - Cont librium - Thiamine 100 iV daily - cont librium protocol 3- ALcoholic hepatitis : - monitor lFTS 4-Electrolytes abn. monitor and replete as needed Dispo : HLOC Code status : DNR/DNI
[2017-03-13] MEDS ORDERED: IBUPROFEN 400 MG TABLET (FP) PO ONE (21:23)
[2017-03-13] MEDS ORDERED: SODIUM PHOSPHATE - 30 MM in SODIUM CHLORIDE 250 ML IVPB ONE (22:14)
[2017-03-14] MEDS: chlordiazePOXIDE 5 MG CAPSULE PO SCH ×4 (05:41→22:12)
[2017-03-14 07:20] LABS: MCHC 32.9 g/dl (32.0-36.0); MEAN CELL VOLUME 97.3 fl (80-96); MEAN PLT VOLUME 10.2 fl (7.5-11.1); PLATELET COUNT 48 K/MM3 (134-434); RDW 14.5 % (11.6-15.6); WHITE BLOOD COUNT 4.4 K/mm3 (4.0-10.0)
[2017-03-14 08:38] LABS: ALBUMIN 2.5 g/dl (3.4-5.0); ALK PHOS 115 U/L (45-117); ANION GAP 10 (8-16); BILIRUBIN,TOTAL 5.5 mg/dL (0.2-1.0); CO2 24 mmol/L (21-32); CREATININE 0.6 mg/dL (0.55-1.02); GLUCOSE,RANDOM 88 mg/dL (74-106); SGPT/ALT 105 U/L (12-78); TOT PROT 7.6 g/dl (6.4-8.2)
[2017-03-14 08:52] LABS: MAGNESIUM 1.4 mg/dL (1.8-2.4); SGOT/AST 203 U/L (15-37)
[2017-03-14 08:53] LABS: CALCIUM 6.9 mg/dL (8.5-10.1)
[2017-03-14 09:02] LABS: BASOPHIL %. 2 % (0-2.0); TOTAL CELLS COUNTED 100
[2017-03-14] MEDS ORDERED: METHADONE HCL 10 MG TABLET ONE (10:21)
[2017-03-14] MEDS ORDERED: METHADONE HCL 40 MG DISPERSABLE TABLET ONE (10:22)
[2017-03-14] MEDS: CALCIUM 500MG/VIT-D 200 UNITS COMBO TABLET (FP) PO SCH ×2 (10:31→22:12)
[2017-03-14] MEDS: THIAMINE HCL 200 MG/2 ML VIAL IVPB SCH (10:31)
[2017-03-14] MEDS: METHADONE 40 MG, METHADONE 20 MG PO SCH (10:31)
--- NOTE | 2017-03-14 14:19 | PN ---
Teaching Attending Note Name of Resident: Darrel Ross ATTENDING PHYSICIAN STATEMENT I saw and evaluated the patient. I reviewed the resident's note and discussed the case with the resident. I agree with the resident's findings and plan as documented. SUBJECTIVE: no abd pain today, toplerated liquid diet . has no fever or chills OBJECTIVE: No distress. AAOx3. CV: RRR Lungs : CTAB ABd : soft, obese, ND , to TTP today , no rebound tenderness or guarding . Ext : no edema A/P: 62 y/o lady with h/o ALcohol abuse and choolecystectomy , who presented with abd pain and was found to have acute pancreatitis 1- Acute alcoholic pancreatitis : NL TG, no hypercalcemia, no cholelithiasis. - change IVF frm D5NS to NS - upgrade diet - pain control : on methadone 2- Alcohol withdrawal : - Cont librium ( will be finished tomorrow night ) - Thiamine . change to PO 3- ALcoholic hepatitis : - monitor lFTS 4-Electrolytes abn. monitor and replete as needed Dispo : HLOC Code status : DNR/DNI
[2017-03-14] MEDS: SODIUM CHLORIDE 1,000 ML IV SCH (14:28)
--- NOTE | 2017-03-14 15:21 | PN ---
Physical Exam: SUBJECTIVE: Patient seen and examined. No acute events overnight. Pt was found crying this morning stating that she is starving and wants a regular diet. She reports tolerating the clear liquid diet well, has had no nausea, emesis, or abdominal pain. She denies SOB, chest pain, and dysuria. OBJECTIVE: Vital Signs Period Temp Pulse Resp BP Sys/Craig Pulse Ox Last 24 Hr 98 F-98.7 F 87-112 16-20 103-148/60-91 95 GENERAL: The patient is awake, alert, and fully oriented, crying. HEAD: Normal with no signs of trauma. EYES: PERRL, extraocular movements intact, sclera anicteric, conjunctiva clear. No ptosis. ENT: Ears normal, nares patent, oropharynx clear without exudates, moist mucous membranes. NECK: Trachea midline, full range of motion, supple. LUNGS: Breath sounds equal, clear to auscultation bilaterally, no wheezes, no crackles, no accessory muscle use. HEART: Regular rate and rhythm, S1, S2 without murmur, rub or gallop. ABDOMEN: soft, NT, mildly distended as per patient, normoactive bowel sounds, no organomegaly EXTREMITIES: 1+ pitting edema, multiple bruises on lower extremities NEUROLOGICAL: Cranial nerves II through XII grossly intact. Normal speech, gait not observed. PSYCH: sad, distressed Laboratory Results - last 24 hr 03/13/17 03/14/17 03/14/17 15:30 05:45 06:00 WBC 4.4 RBC 3.17 L Hgb 10.1 L Hct 30.8 L MCV 97.3 H MCH 32.0 MCHC 32.9 RDW 14.5 Plt Count 48 L MPV 10.2 Total Counted 100 Neutrophils % No Result Required. Neutrophils % (Manual) 59 Lymphocytes % No Result Required. Lymphocytes % (Manual) 29 Monocytes % (Manual) 10 Basophils % (Manual) 2 Sodium 136 Potassium 4.1 D Chloride 104 Carbon Dioxide 25 Anion Gap 7 L BUN 6 L Creatinine 0.6 Creat Clearance w eGFR POC Glucometer 69 Random Glucose 155 H Calcium 6.8 L* Phosphorus 1.5 L Magnesium 1.9 D Total Bilirubin AST ALT Alkaline Phosphatase Total Protein Albumin 03/14/17 03/14/17 06:00 11:41 WBC RBC Hgb Hct MCV MCH MCHC RDW Plt Count MPV Total Counted Neutrophils % Neutrophils % (Manual) Lymphocytes % Lymphocytes % (Manual) Monocytes % (Manual) Basophils % (Manual) Sodium 139 Potassium 3.8 Chloride 105 Carbon Dioxide 24 Anion Gap 10 BUN 6 L Creatinine 0.6 Creat Clearance w eGFR > 60 POC Glucometer 131 Random Glucose 88 D Calcium 6.9 L* Phosphorus 2.0 L D Magnesium 1.4 L D Total Bilirubin 5.5 H D AST 203 H ALT 105 H Alkaline Phosphatase 115 Total Protein 7.6 Albumin 2.5 L Active Medications Generic Name Dose Route Start Last Admin Trade Name Freq PRN Reason Stop Dose Admin Calcium Carbonate/Cholecalciferol 1 tab 03/14/17 10:00 03/14/17 10:31 Os-Siddhartha 500+D - PO 1 tab BID ROSALIO Administration Chlordiazepoxide HCl 25 mg 03/12/17 03:27 Librium - PO 03/15/17 03:26 Q4H PRN WITHDRAWAL(CONT SUBST) Chlordiazepoxide HCl 15 mg 03/14/17 05:00 03/14/17 10:32 Librium - PO 03/14/17 23:01 15 mg [id number] ROSALIO Administration Chlordiazepoxide HCl 10 mg 03/15/17 06:00 Librium - PO 03/16/17 00:01 Q6HPO ROSALIO Sodium Chloride 1,000 mls @ 100 mls/hr 03/14/17 13:45 Normal Saline - IV ASDIR ROSALIO Methadone HCl 40 mg/ Methadone 60 mg 03/12/17 13:15 03/14/17 10:31 HCl 20 mg PO 60 mg DAILY ROSALIO Administration Thiamine HCl 100 mg 03/13/17 10:00 03/14/17 10:31 Vitamin B1 Injection - IVPB 100 mg DAILY ROSALIO Administration ASSESSMENT/PLAN: 62F w/ hx of polysubstance abuse who presented with epigastric pain and n/v, admitted for alcohol withdrawal and acute pancreatitis, finishing a librium taper and advancing diet as tolerated. #Acute pancreatitis- likely 2/2 EtoH -diet advanced to fat free regular diet, monitor if pt can tolerate by assessing pain and nausea -change fluids to NS 100cc/hr -pain control with methadone 60mg #Alcohol withdrawal -Detox on board- Dr. Lilly -continue librium taper -continue thiamine 100mg IV qd #Elevated LFTs- likely 2/2 alcoholic hepatitis -trending down #Pancytopenia- likely 2/2 alcoholic hepatitis -stable from yesterday, continue trending #Hypokalemia -resolved #Hypocalcemia -resolved #Hypomagnesemia -1.4 today, repleted -trend #Hypophosphatemia -2 today, repleted -trend #FEN/PPx -NS at 100 -multiple abnormalities, repleting -fat free diet -no GI ppx indicated -SCDs because lovenox and heparin held due to low platelets Darrel Ross MD PGY1 Visit type - Emergency Visit Emergency Visit: Yes ED Registration Date: 03/12/17 Care time: The patient presented to the Emergency Department on the above date and was hospitalized for further evaluation of their emergent condition. - New Patient This patient is new to me today: No - Critical Care Critical Care patient: No
[2017-03-15] MEDS: chlordiazePOXIDE 5 MG CAPSULE PO SCH ×4 (06:08→23:57)
[2017-03-15 07:45] LABS: MCH 32.2 pg (25.7-33.7); MCHC 33.1 g/dl (32.0-36.0); MEAN CELL VOLUME 97.1 fl (80-96); MEAN PLT VOLUME 9.8 fl (7.5-11.1); PLATELET COUNT 66 K/MM3 (134-434); RDW 14.7 % (11.6-15.6); WHITE BLOOD COUNT 5.2 K/mm3 (4.0-10.0)
[2017-03-15 08:12] LABS: ALBUMIN 2.4 g/dl (3.4-5.0); ALK PHOS 132 U/L (45-117); ANION GAP 8 (8-16); BILIRUBIN,TOTAL 4.2 mg/dL (0.2-1.0); CALCIUM 7.6 mg/dL (8.5-10.1); CO2 26 mmol/L (21-32); CREATININE 0.8 mg/dL (0.55-1.02); GLUCOSE,RANDOM 84 mg/dL (74-106); MAGNESIUM 1.3 mg/dL (1.8-2.4); PHOSPHOROUS 2.6 mg/dL (2.5-4.9); SGOT/AST 170 U/L (15-37); SGPT/ALT 99 U/L (12-78); TOT PROT 7.6 g/dl (6.4-8.2)
--- NOTE | 2017-03-15 08:48 | PN ---
Teaching Attending Note Name of Resident: Darrel Ross ATTENDING PHYSICIAN STATEMENT I saw and evaluated the patient. I reviewed the resident's note and discussed the case with the resident. I agree with the resident's findings and plan as documented. SUBJECTIVE: Patient continues to have tremors, otherwise comfortable. Would like to go to rehab. OBJECTIVE: Vital Signs Temperature 98.8 F 03/15/17 06:02 Pulse Rate 91 H 03/15/17 06:02 Respiratory Rate 18 03/15/17 06:02 Blood Pressure 128/66 03/15/17 06:02 O2 Sat by Pulse Oximetry (%) 95 03/14/17 21:00 CBCD WBC 5.2 K/mm3 (4.0-10.0) 03/15/17 06:00 RBC 3.07 M/mm3 (3.60-5.2) L 03/15/17 06:00 Hgb 9.9 GM/dL (10.7-15.3) L 03/15/17 06:00 Hct 29.8 % (32.4-45.2) L 03/15/17 06:00 MCV 97.1 fl (80-96) H 03/15/17 06:00 MCHC 33.1 g/dl (32.0-36.0) 03/15/17 06:00 RDW 14.7 % (11.6-15.6) 03/15/17 06:00 Plt Count 66 K/MM3 (134-434) L D 03/15/17 06:00 MPV 9.8 fl (7.5-11.1) 03/15/17 06:00 CMP Sodium 137 mmol/L (136-145) 03/15/17 06:00 Potassium 3.8 mmol/L (3.5-5.1) 03/15/17 06:00 Chloride 103 mmol/L (98-107) 03/15/17 06:00 Carbon Dioxide 26 mmol/L (21-32) 03/15/17 06:00 Anion Gap 8 (8-16) 03/15/17 06:00 BUN 12 mg/dL (7-18) D 03/15/17 06:00 Creatinine 0.8 mg/dL (0.55-1.02) D 03/15/17 06:00 Creat Clearance w eGFR > 60 (>60) 03/15/17 06:00 Random Glucose 84 mg/dL (74-106) 03/15/17 06:00 Calcium 7.6 mg/dL (8.5-10.1) L 03/15/17 06:00 Total Bilirubin 4.2 mg/dL (0.2-1.0) H D 03/15/17 06:00 AST 170 U/L (15-37) H 03/15/17 06:00 ALT 99 U/L (12-78) H 03/15/17 06:00 Alkaline Phosphatase 132 U/L (45-117) H 03/15/17 06:00 Total Protein 7.6 g/dl (6.4-8.2) 03/15/17 06:00 Albumin 2.4 g/dl (3.4-5.0) L 03/15/17 06:00 Current Medications Generic Name Dose Route Start Last Admin Trade Name Freq PRN Reason Stop Dose Admin Calcium Carbonate/Cholecalciferol 1 tab 03/14/17 10:00 03/14/17 22:12 Os-Siddhartha 500+D - PO 1 tab BID ROSALIO Administration Chlordiazepoxide HCl 10 mg 03/15/17 06:00 03/15/17 06:08 Librium - PO 03/16/17 00:01 10 mg Q6HPO ROSALIO Administration Sodium Chloride 1,000 mls @ 100 mls/hr 03/14/17 13:45 03/14/17 14:28 Normal Saline - IV Not Given ASDIR ROSALIO Methadone HCl 40 mg/ Methadone 60 mg 03/12/17 13:15 03/14/17 10:31 HCl 20 mg PO 60 mg DAILY ROSALIO Administration Thiamine HCl 100 mg 03/13/17 10:00 03/14/17 10:31 Vitamin B1 Injection - IVPB 100 mg DAILY ROSLAIO Administration Home Medications Medication Instructions Recorded Quetiapine Fumarate [Seroquel -] 100 mg PO HS 09/25/15 Zolpidem Tartrate [Ambien] 10 mg PO HS 12/16/15 Bupropion HCl [Wellbutrin -] 75 mg PO DAILY #30 tablet 01/04/16 Trazodone HCl [Desyrel -] 50 mg PO HS #30 tablet 01/04/16 Albuterol Sulfate Inhaler - 2 puff IH Q4H PRN #1 inhaler 07/05/16 [Ventolin HFA Inhaler -] Methadone [Dolophine -] 60 mg PO DAILY 07/05/16 Ranitidine [Zantac -] 150 mg PO BID #60 tablet 07/05/16 Trazodone HCl [Desyrel -] 100 mg PO HS #30 tablet 07/15/16 Amlodipine Besylate [Norvasc -] 5 mg PO BID #60 tablet 07/18/16 Aspirin [ASA -] 81 mg PO DAILY #30 tab.chew 07/18/16 PE: positive for Tremors est of PE; per resident's note ASSESSMENT AND PLAN: 62 y/o lady with h/o ALcohol abuse and choolecystectomy , who presented with abd pain and was found to have acute pancreatitis # Alcohol withdrawal continues , on librium protocol continue, continue Thiamine and Librium one more day. # Acute alcoholic pancreatitis : improving, with NL TG, no hypercalcemia, no cholelithiasis. # ALcoholic hepatitis : LFTS tending down #Electrolytes imbalance being repleted as needed Code status : DNR/DNI
[2017-03-15] MEDS ORDERED: NAPH,MB-DB/K PH,MBDB POWDER PACKET PO ONE (09:00)
[2017-03-15] MEDS ORDERED: MAGNESIUM SULF 50% (8.12 MEQ/2 ML-1 GM VIAL) IVPB ONE (09:00)
[2017-03-15] MEDS ORDERED: METHADONE HCL 40 MG DISPERSABLE TABLET ONE (10:26)
[2017-03-15] MEDS ORDERED: METHADONE HCL 10 MG TABLET ONE (10:26)
[2017-03-15] MEDS: METHADONE 40 MG, METHADONE 20 MG PO SCH (10:30)
[2017-03-15] MEDS: THIAMINE HCL 200 MG/2 ML VIAL IVPB SCH (10:31)
[2017-03-15] MEDS: CALCIUM 500MG/VIT-D 200 UNITS COMBO TABLET (FP) PO SCH ×2 (10:31→21:49)
[2017-03-15 11:37] LABS: BASOPHIL %. 3 % (0-2.0); TOTAL CELLS COUNTED 100
[2017-03-15 11:38] LABS: PLATELET ESTIMATE DECREASED (NORMAL)
--- NOTE | 2017-03-15 16:47 | PN ---
Physical Exam: SUBJECTIVE: Patient seen and examined. No acute events overnight. Pt reports tolerating fat-free diet well without abdominal pain, nausea, or emesis. She endorses some back pain which is chronic ever since an injury years ago. She also endorses constipation, and states that she has not had a BM for several days. OBJECTIVE: Vital Signs Period Temp Pulse Resp BP Sys/Craig Pulse Ox Last 24 Hr 97.2 F-99.1 F 91-111 18-20 105-135/66-89 95 GENERAL: The patient is awake, alert, and fully oriented, in no acute distress. HEAD: Normal with no signs of trauma. EYES: PERRL, extraocular movements intact, sclera anicteric, conjunctiva clear. No ptosis. ENT: Ears normal, nares patent, oropharynx clear without exudates, moist mucous membranes. NECK: Trachea midline, full range of motion, supple. LUNGS: Breath sounds equal, clear to auscultation bilaterally, no wheezes, no crackles, no accessory muscle use. HEART: Regular rate and rhythm, S1, S2 without murmur, rub or gallop. ABDOMEN: mildly distended, normoactive bowel sounds, soft, minimally tender in upper quadrants, no organomegaly, no rebound tenderness, no guarding EXTREMITIES: 1+ edema in LLE b/l, multiple bruises. Mild shaking of arms NEUROLOGICAL: Cranial nerves II through XII grossly intact. Normal speech, gait not observed. PSYCH: Normal mood, normal affect. Laboratory Results - last 24 hr 03/14/17 03/14/17 03/15/17 17:18 22:11 06:00 WBC 5.2 RBC 3.07 L Hgb 9.9 L Hct 29.8 L MCV 97.1 H MCH 32.2 MCHC 33.1 RDW 14.7 Plt Count 66 L D MPV 9.8 Total Counted 100 Neutrophils % No Result Required. Neutrophils % (Manual) 61 Lymphocytes % No Result Required. Lymphocytes % (Manual) 23 D Monocytes % (Manual) 11 H Eosinophils % (Manual) 2 Basophils % (Manual) 3 H Platelet Estimate Decreased Sodium Potassium Chloride Carbon Dioxide Anion Gap BUN Creatinine Creat Clearance w eGFR POC Glucometer 85 85 Random Glucose Calcium Phosphorus Magnesium Total Bilirubin AST ALT Alkaline Phosphatase Total Protein Albumin 03/15/17 03/15/17 06:00 06:04 WBC RBC Hgb Hct MCV MCH MCHC RDW Plt Count MPV Total Counted Neutrophils % Neutrophils % (Manual) Lymphocytes % Lymphocytes % (Manual) Monocytes % (Manual) Eosinophils % (Manual) Basophils % (Manual) Platelet Estimate Sodium 137 Potassium 3.8 Chloride 103 Carbon Dioxide 26 Anion Gap 8 BUN 12 D Creatinine 0.8 D Creat Clearance w eGFR > 60 POC Glucometer 66 Random Glucose 84 Calcium 7.6 L Phosphorus 2.6 D Magnesium 1.3 L Total Bilirubin 4.2 H D AST 170 H ALT 99 H Alkaline Phosphatase 132 H Total Protein 7.6 Albumin 2.4 L Active Medications Generic Name Dose Route Start Last Admin Trade Name Freq PRN Reason Stop Dose Admin Calcium Carbonate/Cholecalciferol 1 tab 03/14/17 10:00 03/15/17 10:31 Os-Siddhartha 500+D - PO 1 tab BID ROSALIO Administration Chlordiazepoxide HCl 10 mg 03/15/17 06:00 03/15/17 13:03 Librium - PO 03/16/17 00:01 10 mg Q6HPO ROSALIO Administration Sodium Chloride 1,000 mls @ 100 mls/hr 03/14/17 13:45 03/14/17 14:28 Normal Saline - IV Not Given ASDIR ROSALIO Methadone HCl 40 mg/ Methadone 60 mg 03/12/17 13:15 03/15/17 10:30 HCl 20 mg PO 60 mg DAILY ROSALIO Administration Thiamine HCl 100 mg 03/13/17 10:00 03/15/17 10:31 Vitamin B1 Injection - IVPB 100 mg DAILY ROSALIO Administration ASSESSMENT/PLAN: 62F w/ hx of polysubstance abuse who presented with epigastric pain and n/v, admitted for alcohol withdrawal and acute pancreatitis, finishing a librium taper and tolerating a regular diet well. #Acute pancreatitis- likely 2/2 EtoH -fat free diet tolerated well -continue NS 100cc/hr -pain control with methadone 60mg #Alcohol withdrawal -Detox on board- Dr. Lilly -continue librium taper -continue thiamine 100mg IV qd -pt's arms still shaking, continue to monitor for signs of withdrawal #Constipation -consider adding senna and colace #Elevated LFTs- likely 2/2 alcoholic hepatitis -trending down #Pancytopenia- likely 2/2 alcoholic hepatitis -stable from yesterday, continue trending #Hypokalemia -resolved #Hypocalcemia -resolved #Hypomagnesemia -1.3 today, repleted -trend #Hypophosphatemia -2.6 today, repleted -trend #FEN/PPx -NS at 100 -multiple abnormalities, repleting -fat free diet -no GI ppx indicated -SCDs because lovenox and heparin held due to low platelets #Dispo -pending successful completion of librium taper and [facility] Darrel Ross MD PGY1 Visit type - Emergency Visit Emergency Visit: Yes ED Registration Date: 03/12/17 Care time: The patient presented to the Emergency Department on the above date and was hospitalized for further evaluation of their emergent condition. - New Patient This patient is new to me today: No - Critical Care Critical Care patient: No
[2017-03-15] MEDS: SODIUM CHLORIDE 1,000 ML IV SCH (17:59)
[2017-03-15] MEDS ORDERED: IBUPROFEN 400 MG TABLET (FP) PO ONE (22:24)
[2017-03-16 06:37] VITALS: BP 137/75; PULSE 84; TEMP 97.9
[2017-03-16 07:23] LABS: BASOPHIL 0.9 % (0-2.0); EOSINOPHIL 0.6 % (0-4.5); MCH 31.7 pg (25.7-33.7); MCHC 32.3 g/dl (32.0-36.0); MEAN CELL VOLUME 98.2 fl (80-96); MEAN PLT VOLUME 10.4 fl (7.5-11.1); NEUTROPHILS 47.2 % (42.8-82.8); PLATELET COUNT 77 K/MM3 (134-434); RDW 15.2 % (11.6-15.6); WHITE BLOOD COUNT 5.1 K/mm3 (4.0-10.0)
[2017-03-16 07:55] LABS: ANION GAP 7 (8-16); CALCIUM 8.1 mg/dL (8.5-10.1); CO2 28 mmol/L (21-32); GLUCOSE,RANDOM 97 mg/dL (74-106); MAGNESIUM 1.8 mg/dL (1.8-2.4); PHOSPHOROUS 3.1 mg/dL (2.5-4.9)
[2017-03-16] MEDS ORDERED: METHADONE HCL 10 MG TABLET ONE (09:18)
[2017-03-16] MEDS ORDERED: METHADONE HCL 40 MG DISPERSABLE TABLET ONE (09:19)
[2017-03-16] MEDS: CALCIUM 500MG/VIT-D 200 UNITS COMBO TABLET (FP) PO SCH (09:44)
[2017-03-16] MEDS: METHADONE 40 MG, METHADONE 20 MG PO SCH (09:44)
[2017-03-16] MEDS ORDERED: GLYCERIN 1 RECTAL SUPPOSITORY, ADULT RC ONE (10:45)
[2017-03-16] MEDS ORDERED: chlordiazePOXIDE 5 MG CAPSULE PO SCH (11:00)
[2017-03-16] MEDS ORDERED: THIAMINE HCL 100 MG TABLET (FP) PO SCH (11:30)
[2017-03-16] MEDS ORDERED: NYSTATIN 500,000 UNITS/5 ML SUSPENSION PO SCH (12:00)
--- NOTE | 2017-03-16 12:18 | PN ---
Teaching Attending Note Name of Resident: Darrel Ross ATTENDING PHYSICIAN STATEMENT I saw and evaluated the patient. I reviewed the resident's note and discussed the case with the resident. I agree with the resident's findings and plan as documented. SUBJECTIVE: Patient feels better today and would like to go home.Does not want to go to rehab. OBJECTIVE: Vital Signs Temperature 97.9 F 03/16/17 06:37 Pulse Rate 84 03/16/17 06:37 Respiratory Rate 20 03/16/17 06:37 Blood Pressure 137/75 03/16/17 06:37 O2 Sat by Pulse Oximetry (%) 96 03/15/17 21:00 CBCD WBC 5.1 K/mm3 (4.0-10.0) 03/16/17 06:00 RBC 3.37 M/mm3 (3.60-5.2) L 03/16/17 06:00 Hgb 10.7 GM/dL (10.7-15.3) 03/16/17 06:00 Hct 33.0 % (32.4-45.2) 03/16/17 06:00 MCV 98.2 fl (80-96) H 03/16/17 06:00 MCHC 32.3 g/dl (32.0-36.0) 03/16/17 06:00 RDW 15.2 % (11.6-15.6) 03/16/17 06:00 Plt Count 77 K/MM3 (134-434) L 03/16/17 06:00 MPV 10.4 fl (7.5-11.1) 03/16/17 06:00 CMP Sodium 138 mmol/L (136-145) 03/16/17 06:00 Potassium 4.0 mmol/L (3.5-5.1) 03/16/17 06:00 Chloride 103 mmol/L (98-107) 03/16/17 06:00 Carbon Dioxide 28 mmol/L (21-32) 03/16/17 06:00 Anion Gap 7 (8-16) L 03/16/17 06:00 BUN 19 mg/dL (7-18) H D 03/16/17 06:00 Creatinine 1.0 mg/dL (0.55-1.02) D 03/16/17 06:00 Creat Clearance w eGFR > 60 (>60) 03/15/17 06:00 Random Glucose 97 mg/dL (74-106) 03/16/17 06:00 Calcium 8.1 mg/dL (8.5-10.1) L 03/16/17 06:00 Total Bilirubin 4.2 mg/dL (0.2-1.0) H D 03/15/17 06:00 AST 170 U/L (15-37) H 03/15/17 06:00 ALT 99 U/L (12-78) H 03/15/17 06:00 Alkaline Phosphatase 132 U/L (45-117) H 03/15/17 06:00 Total Protein 7.6 g/dl (6.4-8.2) 03/15/17 06:00 Albumin 2.4 g/dl (3.4-5.0) L 03/15/17 06:00 Home Medications Medication Instructions Recorded Quetiapine Fumarate [Seroquel -] 100 mg PO HS 09/25/15 Zolpidem Tartrate [Ambien] 10 mg PO HS 12/16/15 Bupropion HCl [Wellbutrin -] 75 mg PO DAILY #30 tablet 01/04/16 Trazodone HCl [Desyrel -] 50 mg PO HS #30 tablet 01/04/16 Albuterol Sulfate Inhaler - 2 puff IH Q4H PRN #1 inhaler 07/05/16 [Ventolin HFA Inhaler -] Methadone [Dolophine -] 60 mg PO DAILY 07/05/16 Ranitidine [Zantac -] 150 mg PO BID #60 tablet 07/05/16 Trazodone HCl [Desyrel -] 100 mg PO HS #30 tablet 07/15/16 Amlodipine Besylate [Norvasc -] 5 mg PO BID #60 tablet 07/18/16 Aspirin [ASA -] 81 mg PO DAILY #30 tab.chew 07/18/16 PE: positive for Tremors rest of PE per resident's note ASSESSMENT AND PLAN: 62 y/o lady with h/o ALcohol abuse and choolecystectomy , who presented with abd pain and was found to have acute pancreatitis # Alcohol withdrawal improved no further withdrawel , completed Librium protocol . discussed with the patient that she needs to stay away from alcohol completely. Alcohol abstinence is required # Acute alcoholic pancreatitis : improving, with NL TG, no hypercalcemia, no cholelithiasis. # ALcoholic hepatitis : LFTS improved #Electrolytes imbalance: repleted, back to normal now. Code status : DNR/DNI
--- NOTE | 2017-03-16 12:39 | DS ---
Physical Exam: SUBJECTIVE: Patient seen and examined. Pt reports back pain which is chronic since her injury. She denies nausea, emesis, or abdominal pain. She endorses some constipation. OBJECTIVE: Vital Signs Period Temp Pulse Resp BP Sys/Craig Pulse Ox Last 24 Hr 97.2 F-98.3 F 84-101 20-20 122-137/67-88 96 PHYSICAL EXAM GENERAL: The patient is awake, alert, and fully oriented, in no acute distress. HEAD: Normal with no signs of trauma. EYES: PERRL, extraocular movements intact, sclera anicteric, conjunctiva clear. ENT: Ears normal, nares patent, oropharynx clear without exudates, moist mucous membranes. NECK: Trachea midline, full range of motion, supple. LUNGS: Breath sounds equal, clear to auscultation bilaterally, no wheezes, no crackles, no accessory muscle use. HEART: Regular rate and rhythm, S1, S2 without murmur, rub or gallop. ABDOMEN: Soft, minimally tender in upper quadrants, minimally distended, normoactive bowel sounds, no guarding, no rebound, no hepatosplenomegaly, no masses. EXTREMITIES: 2+ LE edema b/l NEUROLOGICAL: Cranial nerves II through XII grossly intact. Normal speech, gait not observed. PSYCH: Normal mood, normal affect. LABS Laboratory Results - last 24 hr 03/15/17 03/15/17 03/16/17 17:22 21:51 06:00 WBC 5.1 RBC 3.37 L Hgb 10.7 Hct 33.0 MCV 98.2 H MCH 31.7 MCHC 32.3 RDW 15.2 Plt Count 77 L MPV 10.4 Neutrophils % 47.2 Lymphocytes % 33.0 Monocytes % 18.3 H Eosinophils % 0.6 Basophils % 0.9 Sodium Potassium Chloride Carbon Dioxide Anion Gap BUN Creatinine POC Glucometer 70 126 Random Glucose Lactic Acid Calcium Phosphorus Magnesium 03/16/17 03/16/17 03/16/17 06:00 06:00 06:43 WBC RBC Hgb Hct MCV MCH MCHC RDW Plt Count MPV Neutrophils % Lymphocytes % Monocytes % Eosinophils % Basophils % Sodium 138 Potassium 4.0 Chloride 103 Carbon Dioxide 28 Anion Gap 7 L BUN 19 H D Creatinine 1.0 D POC Glucometer 92 Random Glucose 97 Lactic Acid 1.1 Calcium 8.1 L Phosphorus 3.1 Magnesium 1.8 D HOSPITAL COURSE: Date of Admission:03/12/17 Date of Discharge: 03/16/17 62F w/ hx of polysubstance abuse who presented with epigastric pain, nausea, and emesis, and she was admitted for acute pancreatitis and alcohol withdrawal. She was given IV fluids, pain control, and her diet was fully advanced as tolerated. She is now tolerating a low fat diet without abdominal pain, nausea, or emesis. She also completed a librium taper. Pt is stable and ready for discharge. Minutes to complete discharge: 35 Discharge Summary Reason For Visit: CIRRHOSIS OF LIVER,ALCOHOL DEPENDENCE,ALCOHOL Current Active Problems Alcohol withdrawal (Acute) Pancreatitis (Acute) Alcohol dependence (Chronic) Cirrhosis of liver (Chronic) Condition: Stable - Instructions Diet, Activity, Other Instructions: You presented with acute pancreatitis, and you were treated with IV fluids, pain control, and your diet was advanced as tolerated. In the hospital, you were also given a librium taper for alcohol withdrawal. 1. You are referred to a PCP. Please follow up within one week. Return to the ED if you develop any new concerning or worsening symptoms such as shortness of breath or chest pain. Referrals: Jose Zapata MD [Staff Physician] - STAFF,NOT ON [Primary Care Provider] - Disposition: HOME - Home Medications Comprehensive Discharge Medication List: Ambulatory Orders Quetiapine Fumarate [Seroquel -] 100 mg PO HS 09/25/15 Zolpidem Tartrate [Ambien] 10 mg PO HS 12/16/15 Bupropion HCl [Wellbutrin -] 75 mg PO DAILY #30 tablet 01/04/16 Trazodone HCl [Desyrel -] 50 mg PO HS #30 tablet 01/04/16 Albuterol Sulfate Inhaler - [Ventolin HFA Inhaler -] 2 puff IH Q4H PRN #1 inhaler 07/05/16 Methadone [Dolophine -] 60 mg PO DAILY 07/05/16 Ranitidine [Zantac -] 150 mg PO BID #60 tablet 07/05/16 Trazodone HCl [Desyrel -] 100 mg PO HS #30 tablet 07/15/16 Amlodipine Besylate [Norvasc -] 5 mg PO BID #60 tablet 07/18/16 Aspirin [ASA -] 81 mg PO DAILY #30 tab.chew 07/18/16 Calcium 500Mg/Vit-D 200 Units [Os-Siddhartha 500+D -] 1 tab PO BID #60 tab 03/16/17 Thiamine HCl [Vitamin B1 -] 100 mg PO DAILY #30 tablet 03/16/17 This patient is new to me today: No Emergency Visit: Yes ED Registration Date: 03/12/17 Care time: The patient presented to the Emergency Department on the above date and was hospitalized for further evaluation of their emergent condition. Critical Care patient: No - Discharge Referral Referred to [facility] Med P.C.: No
[2017-03-16] MEDS ORDERED: DOCUSATE SODIUM 100 MG CAPSULE (FP) PO SCH (14:00)
== END 2017-03-16 14:08 | disposition home or self-care (01) | DRG 282 ==
LOC: JER 22:53 → JERBED 03-12 01:22 → J7W 03-12 04:45
PROVIDERS: ADMIT Internal Medicine; ATTEND Internal Medicine
PROC: HZ2ZZZZ Detoxification Services for Substance Abuse Treatment (ICD-10-PCS; principal; 2017-03-13)
PROC: HZ89ZZZ Medication Management for Substance Abuse Treatment, Other Replacement Medication (ICD-10-PCS; 2017-03-13)
DX: K85.20 Alcohol induced acute pancreatitis without necrosis or infection (principal); I45.81 Long QT syndrome; F10.239 Alcohol dependence with withdrawal, unspecified; K86.0 Alcohol-induced chronic pancreatitis; F17.210 Nicotine dependence, cigarettes, uncomplicated; J45.909 Unspecified asthma, uncomplicated; I10 Essential (primary) hypertension; E78.00 Pure hypercholesterolemia, unspecified; K70.30 Alcoholic cirrhosis of liver without ascites; F11.20 Opioid dependence, uncomplicated; Y90.6 Blood alcohol level of 120-199 mg/100 ml; Z90.49 Acquired absence of other specified parts of digestive tract; E16.2 Hypoglycemia, unspecified; E83.42 Hypomagnesemia; E83.39 Other disorders of phosphorus metabolism; D61.818 Other pancytopenia; E83.51 Hypocalcemia; Z66 Do not resuscitate; K59.00 Constipation, unspecified
CPT/HCPCS: 36415; 76700-TC; 80048; 80053; 80307; 81003; 81015; 83605; 83690; 83735; 84100; 84478; 85025; 93005; 93010; 97116-GP; 97161-GP; 99285-25

== ENCOUNTER 2017-03-24 09:14 | Inpatient (IN) | payer OTHER ==
[2017-03-24 09:23] VITALS: BMI 30.1
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
[2017-03-24] MEDS ORDERED: MAGNESIUM HYDROX 2400MG/30ML ORAL SUSPENSION 30 ML CUP PO PRN (14:10)
[2017-03-24] MEDS ORDERED: MAGNESIUM CITRATE 300 ML BOTTLE PO PRN (14:10)
[2017-03-24] MEDS ORDERED: hydrOXYzine PAMOATE 25 MG CAPSULE (FP) PO PRN (14:10)
[2017-03-24] MEDS ORDERED: diphenhydrAMINE HCL 50 MG CAPSULE PO PRN (14:10)
[2017-03-24] MEDS ORDERED: MENTHOL/PHENOL 1 EACH UD MM PRN (14:10)
[2017-03-24] MEDS ORDERED: LOPERAMIDE HCL 2 MG CAPSULE PO PRN (14:10)
[2017-03-24] MEDS ORDERED: guaiFENesin/D-METHORPHAN HB 10 ML UNIT-DOSE CUPS PO PRN (14:10)
[2017-03-24] MEDS ORDERED: P-EPHED 60MG/TRIPROLIDI 2.5MG TABLET PO PRN (14:10)
[2017-03-24] MEDS ORDERED: ACETAMINOPHEN 325 MG TABLET (FP) PO PRN (14:10)
[2017-03-24] MEDS ORDERED: IBUPROFEN 400 MG TABLET (FP) PO PRN (14:10)
[2017-03-24] MEDS ORDERED: MAG HYDROX/AL HYDROX/SIMETH 30 ML UNIT-DOSE CUP PO PRN (14:10)
[2017-03-24] MEDS ORDERED: ALBUTEROL SO4 18 GM HFA INHALER IH PRN (14:17)
[2017-03-24 15:49] LABS: MCH 32.1 pg (25.7-33.7); MCHC 32.4 g/dl (32.0-36.0); MEAN PLT VOLUME 10.8 fl (7.5-11.1); PLATELET COUNT 150 K/MM3 (134-434); RDW 14.3 % (11.6-15.6)
[2017-03-24 16:07] LABS: ALBUMIN 2.3 g/dl (3.4-5.0); ALK PHOS 154 U/L (45-117); AMYLASE 103 U/L (25-115); ANION GAP 8 (8-16); BILIRUBIN,TOTAL 3.3 mg/dL (0.2-1.0); CALCIUM 7.8 mg/dL (8.5-10.1); CO2 27 mmol/L (21-32); CREATININE 1.4 mg/dL (0.55-1.02); GLUCOSE,RANDOM 120 mg/dL (74-106); SGOT/AST 165 U/L (15-37); SGPT/ALT 110 U/L (12-78); TOT PROT 8.8 g/dl (6.4-8.2)
[2017-03-24 16:08] LABS: INR 1.48 (0.82-1.09); PROTHROMBIN TIME (PATIENT) 16.4 SEC (9.98-11.88)
[2017-03-24] MEDS: RANITIDINE HCL 150 MG TABLET (FP) PO SCH (22:27)
[2017-03-24] MEDS: LACTULOSE 20 GM/30 ML UDC (FOR ORAL USE ONLY) PO SCH (22:27)
[2017-03-24] MEDS: CALCIUM 500MG/VIT-D 200 UNITS COMBO TABLET (FP) PO SCH (22:27)
[2017-03-24] MEDS: amLODIPine BESYLATE 5 MG TABLET (FP) PO SCH (22:27)
[2017-03-24] MEDS: THIAMINE HCL 100 MG TABLET (FP) PO SCH (22:27)
[2017-03-25 00:04] LABS: URINE APPEARANCE CLOUDY; URINE BLOOD NEGATIVE (NEGATIVE); URINE COLOR AMBER; URINE GLUCOSE (UA) NEGATIVE (NEGATIVE); URINE KETONE NEGATIVE (NEGATIVE); URINE NITRITE NEGATIVE (NEGATIVE); URINE UROBILINOGEN 4.0 E.U/dl mg/dL (0.2-1.0)
[2017-03-25 00:23] LABS: URINE PROTEIN 1+ (NEGATIVE)
[2017-03-25 00:29] LABS: URINE BACTERIA RARE /hpf (NONE SEEN); URINE HYALINE CAST 5 /lpf; URINE MUCUS RARE; URINE RBC 31 /hpf (0-3); URINE WBC 3 /hpf (3-5)
[2017-03-25] MEDS: LACTULOSE 20 GM/30 ML UDC (FOR ORAL USE ONLY) PO SCH ×3 (06:39→21:01)
[2017-03-25] MEDS ORDERED: METHADONE HCL 40 MG DISPERSABLE TABLET PO SCH (08:00)
[2017-03-25] MEDS ORDERED: METHADONE HCL 10 MG TABLET ONE (08:57)
[2017-03-25] MEDS ORDERED: METHADONE HCL 40 MG DISPERSABLE TABLET ONE (08:57)
[2017-03-25] MEDS: METHADONE 40 MG, METHADONE 20 MG PO SCH (09:00)
[2017-03-25] MEDS: amLODIPine BESYLATE 5 MG TABLET (FP) PO SCH ×2 (09:02→21:00)
[2017-03-25] MEDS: PRENATAL VITAMINS W/ FOLIC ACID TABLET (FP) PO SCH (09:02)
[2017-03-25] MEDS: CALCIUM 500MG/VIT-D 200 UNITS COMBO TABLET (FP) PO SCH ×2 (09:02→22:08)
[2017-03-25] MEDS: RANITIDINE HCL 150 MG TABLET (FP) PO SCH ×2 (09:02→21:00)
[2017-03-25] MEDS: ASPIRIN 81 MG CHEWABLE TABLETS PO SCH (09:02)
[2017-03-25 12:11] LABS: URINE LEUK ESTERASE Negative (NEGATIVE)
--- NOTE | 2017-03-25 19:51 | EKG ---
Test Reason : Blood Pressure : / mmHG Vent. Rate : 081 BPM Atrial Rate : 081 BPM P-R Int : 168 ms QRS Dur : 076 ms QT Int : 422 ms P-R-T Axes : 046 000 040 degrees QTc Int : 490 ms NORMAL SINUS RHYTHM MINIMAL VOLTAGE CRITERIA FOR LVH, MAY BE NORMAL VARIANT PROLONGED QT ABNORMAL ECG WHEN COMPARED WITH ECG OF 11-MAR-2017 23:24, NO SIGNIFICANT CHANGE WAS FOUND REPEAT EKG IF CLINICALLY INDICATED Confirmed by CHRISTINE DOWNING MD ([id number]) on 03/25/2017 7:51:12 PM Referred By: Confirmed By:CHRISTINE DOWNING MD
[2017-03-25] MEDS: THIAMINE HCL 100 MG TABLET (FP) PO SCH (21:00)
[2017-03-26] MEDS ORDERED: METHADONE HCL 10 MG TABLET ONE (04:08)
[2017-03-26] MEDS ORDERED: METHADONE HCL 40 MG DISPERSABLE TABLET ONE (04:09)
[2017-03-26] MEDS: METHADONE 40 MG, METHADONE 20 MG PO SCH (06:09)
[2017-03-26] MEDS: LACTULOSE 20 GM/30 ML UDC (FOR ORAL USE ONLY) PO SCH ×3 (06:10→21:10)
[2017-03-26] MEDS: CALCIUM 500MG/VIT-D 200 UNITS COMBO TABLET (FP) PO SCH ×2 (09:55→21:10)
[2017-03-26] MEDS: PRENATAL VITAMINS W/ FOLIC ACID TABLET (FP) PO SCH (09:55)
[2017-03-26] MEDS: ASPIRIN 81 MG CHEWABLE TABLETS PO SCH (09:55)
[2017-03-26] MEDS: RANITIDINE HCL 150 MG TABLET (FP) PO SCH ×2 (09:55→21:10)
[2017-03-26] MEDS: amLODIPine BESYLATE 5 MG TABLET (FP) PO SCH ×2 (09:55→21:10)
[2017-03-26] MEDS ORDERED: FLU VACCINE QUAD 60 MCG/0.5 ML (MDV 17-18) IM ONE (12:00)
[2017-03-26] MEDS: THIAMINE HCL 100 MG TABLET (FP) PO SCH (21:10)
[2017-03-27] MEDS ORDERED: METHADONE HCL 40 MG DISPERSABLE TABLET ONE (05:50)
[2017-03-27] MEDS ORDERED: METHADONE HCL 10 MG TABLET ONE (05:50)
[2017-03-27] MEDS: METHADONE 40 MG, METHADONE 20 MG PO SCH (06:39)
[2017-03-27] MEDS: LACTULOSE 20 GM/30 ML UDC (FOR ORAL USE ONLY) PO SCH ×3 (06:41→21:48)
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
[2017-03-27] MEDS: RANITIDINE HCL 150 MG TABLET (FP) PO SCH (10:03)
[2017-03-27] MEDS: amLODIPine BESYLATE 5 MG TABLET (FP) PO SCH ×2 (10:03→21:47)
[2017-03-27] MEDS: PRENATAL VITAMINS W/ FOLIC ACID TABLET (FP) PO SCH (10:03)
[2017-03-27] MEDS: CALCIUM 500MG/VIT-D 200 UNITS COMBO TABLET (FP) PO SCH ×2 (10:03→21:47)
[2017-03-27] MEDS: ASPIRIN 81 MG CHEWABLE TABLETS PO SCH (10:04)
[2017-03-27] MEDS: buPROPion HCL 75 MG TABLET PO SCH (12:00)
[2017-03-27] MEDS ORDERED: METHADONE HCL 40 MG DISPERSABLE TABLET PO SCH (12:55)
[2017-03-27] MEDS ORDERED: HYDROCHLOROTHIAZIDE 12.5 MG CAPSULE (FP) PO SCH (13:00)
--- NOTE | 2017-03-27 13:05 | PN ---
S Progress Note Note: c/o pain both ankles /feet r>L s/p hospitalization with hydration for acute pancreatitis, feeling sedated. o/e somewhat sedated a + o x3, bilateral ankle and feet swelling with erytehma and cellulits right upper foot a/p: s/p acute pancreatitis, dehydration, liever diases , cellulits right foot elevate legs, d/c sedating medications that are not necessary decrease methadone dose, patient denies cravings at this time will start keflex for cellulitis fluids. repeat labs
[2017-03-27] MEDS: CEPHALEXIN MONOHYDRATE 500 MG CAPSULE (UD) PO SCH ×2 (17:05→23:28)
[2017-03-27] MEDS: THIAMINE HCL 100 MG TABLET (FP) PO SCH (21:48)
[2017-03-27] MEDS: QUEtiapine FUMARATE 100 MG TABLET (FP) PO SCH (21:48)
[2017-03-27] MEDS ORDERED: SUVOREXANT 10 MG TABLET PO PRN (22:00)
[2017-03-28] MEDS ORDERED: METHADONE HCL 10 MG TABLET ONE (05:56)
[2017-03-28] MEDS ORDERED: METHADONE HCL 40 MG DISPERSABLE TABLET ONE (05:56)
[2017-03-28] MEDS ORDERED: METHADONE 40 MG, METHADONE 10 MG PO SCH (06:00)
[2017-03-28] MEDS: CEPHALEXIN MONOHYDRATE 500 MG CAPSULE (UD) PO SCH ×3 (06:49→18:50)
[2017-03-28] MEDS: LACTULOSE 20 GM/30 ML UDC (FOR ORAL USE ONLY) PO SCH ×3 (06:50→22:37)
[2017-03-28 10:16] LABS: BASOPHIL 0.5 % (0-2.0); EOSINOPHIL 0.5 % (0-4.5); MCH 31.4 pg (25.7-33.7); MCHC 32.1 g/dl (32.0-36.0); MEAN PLT VOLUME 10.9 fl (7.5-11.1); NEUTROPHILS 48.1 % (42.8-82.8); PLATELET COUNT 153 K/MM3 (134-434); RDW 13.9 % (11.6-15.6); WHITE BLOOD COUNT 7.6 K/mm3 (4.0-10.0)
[2017-03-28 10:21] LABS: INR 1.47 (0.82-1.09); PROTHROMBIN TIME (PATIENT) 16.2 SEC (9.98-11.88)
[2017-03-28] MEDS: PRENATAL VITAMINS W/ FOLIC ACID TABLET (FP) PO SCH (10:25)
[2017-03-28] MEDS: ASPIRIN 81 MG CHEWABLE TABLETS PO SCH (10:25)
[2017-03-28] MEDS: CALCIUM 500MG/VIT-D 200 UNITS COMBO TABLET (FP) PO SCH ×2 (10:25→22:37)
[2017-03-28] MEDS: amLODIPine BESYLATE 5 MG TABLET (FP) PO SCH ×2 (10:26→22:37)
[2017-03-28] MEDS: buPROPion HCL 75 MG TABLET PO SCH (10:26)
[2017-03-28 10:33] LABS: ALBUMIN 2.3 g/dl (3.4-5.0); ALK PHOS 172 U/L (45-117); ANION GAP 9 (8-16); BILIRUBIN,TOTAL 2.3 mg/dL (0.2-1.0); CALCIUM 8.7 mg/dL (8.5-10.1); CO2 25 mmol/L (21-32); GLUCOSE,RANDOM 103 mg/dL (74-106); SGOT/AST 157 U/L (15-37); SGPT/ALT 110 U/L (12-78); TOT PROT 8.4 g/dl (6.4-8.2)
[2017-03-28] MEDS ORDERED: METHADONE HCL 40 MG DISPERSABLE TABLET PO SCH (12:20)
--- NOTE | 2017-03-28 12:27 | PN ---
[facility] Progress Note Note: Patient continues to be at risk of fall and not able to fully participate in rehab activities. Blood work shows pancreatitis resolving and she is without pain adn eating well. Will put on 1:1 and start paperwork for transfer. Use wheelchair
[2017-03-28] MEDS: QUEtiapine FUMARATE 100 MG TABLET (FP) PO SCH (22:37)
[2017-03-28] MEDS: THIAMINE HCL 100 MG TABLET (FP) PO SCH (22:37)
[2017-03-29] MEDS: LACTULOSE 20 GM/30 ML UDC (FOR ORAL USE ONLY) PO SCH ×3 (07:16→21:30)
[2017-03-29] MEDS: CEPHALEXIN MONOHYDRATE 500 MG CAPSULE (UD) PO SCH ×4 (07:16→17:03)
[2017-03-29] MEDS ORDERED: METHADONE HCL 40 MG DISPERSABLE TABLET ONE (08:56)
[2017-03-29] MEDS ORDERED: METHADONE HCL 5 MG TABLET ONE (08:56)
[2017-03-29] MEDS: ASPIRIN 81 MG CHEWABLE TABLETS PO SCH (09:09)
[2017-03-29] MEDS: METHADONE 40 MG, METHADONE 5 MG PO SCH (09:09)
[2017-03-29] MEDS: PRENATAL VITAMINS W/ FOLIC ACID TABLET (FP) PO SCH (09:09)
[2017-03-29] MEDS: amLODIPine BESYLATE 5 MG TABLET (FP) PO SCH ×2 (09:10→21:23)
[2017-03-29] MEDS: buPROPion HCL 75 MG TABLET PO SCH (09:10)
[2017-03-29] MEDS: CALCIUM 500MG/VIT-D 200 UNITS COMBO TABLET (FP) PO SCH ×2 (09:10→21:30)
[2017-03-29] MEDS: QUEtiapine FUMARATE 100 MG TABLET (FP) PO SCH (21:24)
[2017-03-29] MEDS: THIAMINE HCL 100 MG TABLET (FP) PO SCH (21:30)
[2017-03-30] MEDS: CEPHALEXIN MONOHYDRATE 500 MG CAPSULE (UD) PO SCH ×6 (00:32→23:56)
[2017-03-30] MEDS ORDERED: METHADONE HCL 5 MG TABLET ONE ×2 (04:00→10:31)
[2017-03-30] MEDS ORDERED: METHADONE HCL 40 MG DISPERSABLE TABLET ONE ×2 (04:00→10:31)
[2017-03-30] MEDS: PRENATAL VITAMINS W/ FOLIC ACID TABLET (FP) PO SCH (10:33)
[2017-03-30] MEDS: ASPIRIN 81 MG CHEWABLE TABLETS PO SCH (10:33)
[2017-03-30] MEDS: amLODIPine BESYLATE 5 MG TABLET (FP) PO SCH ×2 (10:33→21:54)
[2017-03-30] MEDS: CALCIUM 500MG/VIT-D 200 UNITS COMBO TABLET (FP) PO SCH ×2 (10:33→21:54)
[2017-03-30] MEDS: METHADONE 40 MG, METHADONE 5 MG PO SCH (10:33)
[2017-03-30] MEDS: buPROPion HCL 75 MG TABLET PO SCH (10:33)
[2017-03-30] MEDS: LACTULOSE 20 GM/30 ML UDC (FOR ORAL USE ONLY) PO SCH ×3 (10:44→21:56)
[2017-03-30] MEDS: THIAMINE HCL 100 MG TABLET (FP) PO SCH (21:54)
[2017-03-30] MEDS: QUEtiapine FUMARATE 100 MG TABLET (FP) PO SCH (22:49)
[2017-03-31] MEDS: amLODIPine BESYLATE 5 MG TABLET (FP) PO SCH ×2 (09:13→21:47)
[2017-03-31] MEDS: CEPHALEXIN MONOHYDRATE 500 MG CAPSULE (UD) PO SCH ×3 (09:13→17:25)
[2017-03-31] MEDS: ASPIRIN 81 MG CHEWABLE TABLETS PO SCH (09:13)
[2017-03-31] MEDS: CALCIUM 500MG/VIT-D 200 UNITS COMBO TABLET (FP) PO SCH ×2 (09:13→21:47)
[2017-03-31] MEDS: LACTULOSE 20 GM/30 ML UDC (FOR ORAL USE ONLY) PO SCH ×3 (09:13→21:47)
[2017-03-31] MEDS: PRENATAL VITAMINS W/ FOLIC ACID TABLET (FP) PO SCH (09:14)
[2017-03-31] MEDS: buPROPion HCL 75 MG TABLET PO SCH (09:14)
[2017-03-31] MEDS ORDERED: METHADONE HCL 40 MG DISPERSABLE TABLET ONE (10:50)
[2017-03-31] MEDS: METHADONE 40 MG, METHADONE 5 MG PO SCH (10:52)
[2017-03-31] MEDS ORDERED: METHADONE HCL 40 MG DISPERSABLE TABLET PO SCH (14:46)
--- NOTE | 2017-03-31 14:54 | PN ---
[facility] Progress Note Note: Patient still oversedated after Am methadone dose. h/o hepatic encephalopathy with elevated ammonia level on lactulose daily, s/p acute pancreatitis, alcohol live cirrhosis and hepatitis c history. Will d/c MMTP methadone daily dose for addiction. Will divide and decrease total daily dose of methadone 20mg bid now to be given for pain. Cellulitis on feet improving with antibiotics. will d/c antibiotics prior to discharge. Working with interdisciplinary team to arrange for safe discharge, patient open to residential placement. Minimize use of al centrally acting sedating medications at this time.
[2017-03-31] MEDS ORDERED: METHADONE HCL 10 MG TABLET PO SCH (15:00)
[2017-03-31] MEDS: THIAMINE HCL 100 MG TABLET (FP) PO SCH (21:46)
[2017-03-31] MEDS: QUEtiapine FUMARATE 50 MG TABLET PO SCH (21:46)
[2017-04-01] MEDS: CEPHALEXIN MONOHYDRATE 500 MG CAPSULE (UD) PO SCH ×5 (00:05→23:31)
[2017-04-01] MEDS: LACTULOSE 20 GM/30 ML UDC (FOR ORAL USE ONLY) PO SCH ×3 (07:00→21:49)
[2017-04-01] MEDS: METHADONE HCL 10 MG TABLET PO SCH ×2 (10:00→22:01)
[2017-04-01] MEDS: PRENATAL VITAMINS W/ FOLIC ACID TABLET (FP) PO SCH (10:00)
[2017-04-01] MEDS: buPROPion HCL 75 MG TABLET PO SCH (10:00)
[2017-04-01] MEDS: CALCIUM 500MG/VIT-D 200 UNITS COMBO TABLET (FP) PO SCH ×2 (10:00→21:49)
[2017-04-01] MEDS: amLODIPine BESYLATE 5 MG TABLET (FP) PO SCH ×2 (10:00→21:49)
[2017-04-01] MEDS: ASPIRIN 81 MG CHEWABLE TABLETS PO SCH (10:01)
[2017-04-01] MEDS: QUEtiapine FUMARATE 50 MG TABLET PO SCH (21:49)
[2017-04-01] MEDS: THIAMINE HCL 100 MG TABLET (FP) PO SCH (21:49)
[2017-04-02] MEDS: LACTULOSE 20 GM/30 ML UDC (FOR ORAL USE ONLY) PO SCH ×3 (06:48→21:49)
[2017-04-02] MEDS: CEPHALEXIN MONOHYDRATE 500 MG CAPSULE (UD) PO SCH ×4 (06:48→23:46)
[2017-04-02] MEDS: METHADONE HCL 10 MG TABLET PO SCH ×2 (09:27→21:48)
[2017-04-02] MEDS: PRENATAL VITAMINS W/ FOLIC ACID TABLET (FP) PO SCH (09:28)
[2017-04-02] MEDS: ASPIRIN 81 MG CHEWABLE TABLETS PO SCH (09:28)
[2017-04-02] MEDS: amLODIPine BESYLATE 5 MG TABLET (FP) PO SCH ×2 (09:28→21:50)
[2017-04-02] MEDS: CALCIUM 500MG/VIT-D 200 UNITS COMBO TABLET (FP) PO SCH ×2 (09:28→21:50)
[2017-04-02] MEDS: buPROPion HCL 75 MG TABLET PO SCH (09:28)
[2017-04-02] MEDS: THIAMINE HCL 100 MG TABLET (FP) PO SCH (21:50)
[2017-04-02] MEDS: QUEtiapine FUMARATE 50 MG TABLET PO SCH (21:50)
[2017-04-03] MEDS: LACTULOSE 20 GM/30 ML UDC (FOR ORAL USE ONLY) PO SCH ×3 (06:43→21:19)
[2017-04-03] MEDS: CEPHALEXIN MONOHYDRATE 500 MG CAPSULE (UD) PO SCH ×2 (06:43→12:02)
[2017-04-03] MEDS: amLODIPine BESYLATE 5 MG TABLET (FP) PO SCH ×2 (10:12→21:19)
[2017-04-03] MEDS: PRENATAL VITAMINS W/ FOLIC ACID TABLET (FP) PO SCH (10:12)
[2017-04-03] MEDS: ASPIRIN 81 MG CHEWABLE TABLETS PO SCH (10:12)
[2017-04-03] MEDS: buPROPion HCL 75 MG TABLET PO SCH (10:12)
[2017-04-03] MEDS: CALCIUM 500MG/VIT-D 200 UNITS COMBO TABLET (FP) PO SCH ×2 (10:12→21:18)
[2017-04-03] MEDS: METHADONE HCL 10 MG TABLET PO SCH ×2 (10:13→21:19)
[2017-04-03] MEDS: QUEtiapine FUMARATE 50 MG TABLET PO SCH (21:25)
[2017-04-03] MEDS: THIAMINE HCL 100 MG TABLET (FP) PO SCH (21:25)
[2017-04-04] MEDS: LACTULOSE 20 GM/30 ML UDC (FOR ORAL USE ONLY) PO SCH ×3 (06:43→22:48)
[2017-04-04] MEDS: buPROPion HCL 75 MG TABLET PO SCH (10:49)
[2017-04-04] MEDS: CALCIUM 500MG/VIT-D 200 UNITS COMBO TABLET (FP) PO SCH ×2 (10:49→22:48)
[2017-04-04] MEDS: METHADONE HCL 10 MG TABLET PO SCH ×2 (10:49→22:48)
[2017-04-04] MEDS: ASPIRIN 81 MG CHEWABLE TABLETS PO SCH (10:49)
[2017-04-04] MEDS: amLODIPine BESYLATE 5 MG TABLET (FP) PO SCH ×2 (10:49→22:48)
[2017-04-04] MEDS: PRENATAL VITAMINS W/ FOLIC ACID TABLET (FP) PO SCH (10:49)
[2017-04-04] MEDS: QUEtiapine FUMARATE 50 MG TABLET PO SCH (22:49)
[2017-04-04] MEDS: THIAMINE HCL 100 MG TABLET (FP) PO SCH (22:49)
[2017-04-05] MEDS: LACTULOSE 20 GM/30 ML UDC (FOR ORAL USE ONLY) PO SCH ×3 (06:31→21:46)
[2017-04-05] MEDS: buPROPion HCL 75 MG TABLET PO SCH (10:48)
[2017-04-05] MEDS: PRENATAL VITAMINS W/ FOLIC ACID TABLET (FP) PO SCH (10:48)
[2017-04-05] MEDS: METHADONE HCL 10 MG TABLET PO SCH ×4 (10:48→21:47)
[2017-04-05] MEDS: ASPIRIN 81 MG CHEWABLE TABLETS PO SCH (10:48)
[2017-04-05] MEDS: amLODIPine BESYLATE 5 MG TABLET (FP) PO SCH ×2 (10:48→21:48)
[2017-04-05] MEDS: CALCIUM 500MG/VIT-D 200 UNITS COMBO TABLET (FP) PO SCH ×2 (10:48→21:47)
--- NOTE | 2017-04-05 12:31 | PN ---
[facility] Progress Note Note: Patient c/o pain r hip,no imporvement inmental status in spite of decreased methadone dose, will give in divided doses 10mg tid for pain and reduce total daily dose, labs ordered for AM. Meeting with sister re: placement on discharge tomrrow plan of care discussed with nurse. total dose of methadone today will be 40mg
[2017-04-05] MEDS: THIAMINE HCL 100 MG TABLET (FP) PO SCH (21:47)
[2017-04-05] MEDS: QUEtiapine FUMARATE 50 MG TABLET PO SCH (21:47)
[2017-04-06] MEDS: LACTULOSE 20 GM/30 ML UDC (FOR ORAL USE ONLY) PO SCH ×4 (07:02→21:42)
[2017-04-06] MEDS: METHADONE HCL 10 MG TABLET PO SCH ×4 (07:02→21:41)
[2017-04-06] MEDS: buPROPion HCL 75 MG TABLET PO SCH (10:23)
[2017-04-06] MEDS: PRENATAL VITAMINS W/ FOLIC ACID TABLET (FP) PO SCH (10:23)
[2017-04-06] MEDS: CALCIUM 500MG/VIT-D 200 UNITS COMBO TABLET (FP) PO SCH ×2 (10:24→21:42)
[2017-04-06] MEDS: ASPIRIN 81 MG CHEWABLE TABLETS PO SCH (10:24)
[2017-04-06] MEDS: amLODIPine BESYLATE 5 MG TABLET (FP) PO SCH (10:24)
[2017-04-06 10:50] LABS: BASOPHIL 0.5 % (0-2.0); EOSINOPHIL 1.8 % (0-4.5); MCH 30.8 pg (25.7-33.7); MCHC 32.3 g/dl (32.0-36.0); MEAN CELL VOLUME 95.6 fl (80-96); NEUTROPHILS 49.9 % (42.8-82.8); PLATELET COUNT 139 K/MM3 (134-434); RDW 13.1 % (11.6-15.6); WHITE BLOOD COUNT 7.9 K/mm3 (4.0-10.0)
[2017-04-06 10:55] LABS: INR 1.43 (0.82-1.09); PROTHROMBIN TIME (PATIENT) 16.2 SEC (9.98-11.88)
[2017-04-06 11:08] LABS: ALBUMIN 2.1 g/dl (3.4-5.0); ALK PHOS 110 U/L (45-117); ANION GAP 7 (8-16); BILIRUBIN,TOTAL 1.7 mg/dL (0.2-1.0); CALCIUM 8.2 mg/dL (8.5-10.1); CO2 31 mmol/L (21-32); GLUCOSE,RANDOM 85 mg/dL (74-106); SGOT/AST 144 U/L (15-37); SGPT/ALT 96 U/L (12-78); TOT PROT 8.4 g/dl (6.4-8.2)
[2017-04-06] MEDS: QUEtiapine FUMARATE 50 MG TABLET PO SCH (21:41)
[2017-04-06] MEDS: THIAMINE HCL 100 MG TABLET (FP) PO SCH (21:42)
[2017-04-07] MEDS: ASPIRIN 81 MG CHEWABLE TABLETS PO SCH (10:59)
[2017-04-07] MEDS: METHADONE HCL 10 MG TABLET PO SCH ×2 (10:59→21:07)
[2017-04-07] MEDS: PRENATAL VITAMINS W/ FOLIC ACID TABLET (FP) PO SCH (10:59)
[2017-04-07] MEDS: CALCIUM 500MG/VIT-D 200 UNITS COMBO TABLET (FP) PO SCH ×2 (10:59→21:07)
[2017-04-07] MEDS: LACTULOSE 20 GM/30 ML UDC (FOR ORAL USE ONLY) PO SCH ×4 (10:59→21:07)
[2017-04-07] MEDS: buPROPion HCL 75 MG TABLET PO SCH (10:59)
[2017-04-07] MEDS: THIAMINE HCL 100 MG TABLET (FP) PO SCH (21:06)
[2017-04-07] MEDS: QUEtiapine FUMARATE 50 MG TABLET PO SCH (21:07)
[2017-04-08] MEDS: buPROPion HCL 75 MG TABLET PO SCH (12:20)
[2017-04-08] MEDS: CALCIUM 500MG/VIT-D 200 UNITS COMBO TABLET (FP) PO SCH ×2 (12:20→21:34)
[2017-04-08] MEDS: METHADONE HCL 10 MG TABLET PO SCH ×2 (12:20→21:34)
[2017-04-08] MEDS: ASPIRIN 81 MG CHEWABLE TABLETS PO SCH (12:20)
[2017-04-08] MEDS: LACTULOSE 20 GM/30 ML UDC (FOR ORAL USE ONLY) PO SCH ×4 (12:20→21:00)
[2017-04-08] MEDS: PRENATAL VITAMINS W/ FOLIC ACID TABLET (FP) PO SCH (12:20)
[2017-04-08] MEDS: THIAMINE HCL 100 MG TABLET (FP) PO SCH (21:34)
[2017-04-08] MEDS: QUEtiapine FUMARATE 50 MG TABLET PO SCH (21:34)
[2017-04-09] MEDS: METHADONE HCL 10 MG TABLET PO SCH ×2 (09:20→21:01)
[2017-04-09] MEDS: ASPIRIN 81 MG CHEWABLE TABLETS PO SCH (09:20)
[2017-04-09] MEDS: buPROPion HCL 75 MG TABLET PO SCH (09:20)
[2017-04-09] MEDS: CALCIUM 500MG/VIT-D 200 UNITS COMBO TABLET (FP) PO SCH ×2 (09:20→21:02)
[2017-04-09] MEDS: PRENATAL VITAMINS W/ FOLIC ACID TABLET (FP) PO SCH (09:20)
[2017-04-09] MEDS: LACTULOSE 20 GM/30 ML UDC (FOR ORAL USE ONLY) PO SCH ×4 (09:21→21:02)
[2017-04-09] MEDS: THIAMINE HCL 100 MG TABLET (FP) PO SCH (21:01)
[2017-04-09] MEDS: QUEtiapine FUMARATE 50 MG TABLET PO SCH (21:02)
[2017-04-10] MEDS: PRENATAL VITAMINS W/ FOLIC ACID TABLET (FP) PO SCH (10:44)
[2017-04-10] MEDS: CALCIUM 500MG/VIT-D 200 UNITS COMBO TABLET (FP) PO SCH ×2 (10:44→21:06)
[2017-04-10] MEDS: buPROPion HCL 75 MG TABLET PO SCH (10:44)
[2017-04-10] MEDS: ASPIRIN 81 MG CHEWABLE TABLETS PO SCH (10:44)
[2017-04-10] MEDS: METHADONE HCL 10 MG TABLET PO SCH ×2 (10:44→21:05)
[2017-04-10] MEDS: LACTULOSE 20 GM/30 ML UDC (FOR ORAL USE ONLY) PO SCH ×4 (10:44→21:05)
[2017-04-10] MEDS: THIAMINE HCL 100 MG TABLET (FP) PO SCH (21:06)
[2017-04-10] MEDS: QUEtiapine FUMARATE 50 MG TABLET PO SCH (21:10)
[2017-04-11] MEDS: buPROPion HCL 75 MG TABLET PO SCH (10:41)
[2017-04-11] MEDS: CALCIUM 500MG/VIT-D 200 UNITS COMBO TABLET (FP) PO SCH ×2 (10:41→21:25)
[2017-04-11] MEDS: ASPIRIN 81 MG CHEWABLE TABLETS PO SCH (10:41)
[2017-04-11] MEDS: LACTULOSE 20 GM/30 ML UDC (FOR ORAL USE ONLY) PO SCH ×4 (10:41→21:22)
[2017-04-11] MEDS: METHADONE HCL 10 MG TABLET PO SCH ×2 (10:41→21:22)
[2017-04-11] MEDS: PRENATAL VITAMINS W/ FOLIC ACID TABLET (FP) PO SCH (10:48)
[2017-04-11] MEDS: THIAMINE HCL 100 MG TABLET (FP) PO SCH (21:22)
[2017-04-11] MEDS: QUEtiapine FUMARATE 50 MG TABLET PO SCH (21:24)
[2017-04-12] MEDS: CALCIUM 500MG/VIT-D 200 UNITS COMBO TABLET (FP) PO SCH ×2 (09:32→21:41)
[2017-04-12] MEDS: LACTULOSE 20 GM/30 ML UDC (FOR ORAL USE ONLY) PO SCH ×4 (09:32→21:41)
[2017-04-12] MEDS: METHADONE HCL 10 MG TABLET PO SCH ×2 (09:32→21:41)
[2017-04-12] MEDS: ASPIRIN 81 MG CHEWABLE TABLETS PO SCH (09:32)
[2017-04-12] MEDS: PRENATAL VITAMINS W/ FOLIC ACID TABLET (FP) PO SCH (09:32)
[2017-04-12] MEDS: buPROPion HCL 75 MG TABLET PO SCH (09:33)
[2017-04-12] MEDS: THIAMINE HCL 100 MG TABLET (FP) PO SCH (21:41)
[2017-04-12] MEDS: QUEtiapine FUMARATE 50 MG TABLET PO SCH (21:43)
[2017-04-13] MEDS: LACTULOSE 20 GM/30 ML UDC (FOR ORAL USE ONLY) PO SCH ×4 (10:29→21:05)
[2017-04-13] MEDS: CALCIUM 500MG/VIT-D 200 UNITS COMBO TABLET (FP) PO SCH ×2 (10:29→21:06)
[2017-04-13] MEDS: METHADONE HCL 10 MG TABLET PO SCH ×2 (10:29→21:05)
[2017-04-13] MEDS: ASPIRIN 81 MG CHEWABLE TABLETS PO SCH (10:29)
[2017-04-13] MEDS: buPROPion HCL 75 MG TABLET PO SCH (10:29)
[2017-04-13] MEDS: PRENATAL VITAMINS W/ FOLIC ACID TABLET (FP) PO SCH (10:29)
[2017-04-13] MEDS: THIAMINE HCL 100 MG TABLET (FP) PO SCH (21:06)
[2017-04-13] MEDS: QUEtiapine FUMARATE 50 MG TABLET PO SCH (21:06)
[2017-04-14] MEDS: METHADONE HCL 10 MG TABLET PO SCH ×2 (10:29→21:25)
[2017-04-14] MEDS: PRENATAL VITAMINS W/ FOLIC ACID TABLET (FP) PO SCH (10:29)
[2017-04-14] MEDS: CALCIUM 500MG/VIT-D 200 UNITS COMBO TABLET (FP) PO SCH ×2 (10:29→21:25)
[2017-04-14] MEDS: buPROPion HCL 75 MG TABLET PO SCH (10:29)
[2017-04-14] MEDS: ASPIRIN 81 MG CHEWABLE TABLETS PO SCH (10:29)
[2017-04-14] MEDS: LACTULOSE 20 GM/30 ML UDC (FOR ORAL USE ONLY) PO SCH ×4 (10:29→21:25)
[2017-04-14] MEDS: THIAMINE HCL 100 MG TABLET (FP) PO SCH (21:25)
[2017-04-14] MEDS: QUEtiapine FUMARATE 50 MG TABLET PO SCH (21:26)
[2017-04-15] MEDS: PRENATAL VITAMINS W/ FOLIC ACID TABLET (FP) PO SCH (10:23)
[2017-04-15] MEDS: LACTULOSE 20 GM/30 ML UDC (FOR ORAL USE ONLY) PO SCH ×4 (10:24→21:56)
[2017-04-15] MEDS: ASPIRIN 81 MG CHEWABLE TABLETS PO SCH (10:24)
[2017-04-15] MEDS: METHADONE HCL 10 MG TABLET PO SCH ×2 (10:24→21:55)
[2017-04-15] MEDS: CALCIUM 500MG/VIT-D 200 UNITS COMBO TABLET (FP) PO SCH ×2 (10:24→21:55)
[2017-04-15] MEDS: buPROPion HCL 75 MG TABLET PO SCH (10:24)
[2017-04-15] MEDS: THIAMINE HCL 100 MG TABLET (FP) PO SCH (21:55)
[2017-04-15] MEDS: QUEtiapine FUMARATE 50 MG TABLET PO SCH (21:56)
[2017-04-16] MEDS: PRENATAL VITAMINS W/ FOLIC ACID TABLET (FP) PO SCH (10:20)
[2017-04-16] MEDS: ASPIRIN 81 MG CHEWABLE TABLETS PO SCH (10:20)
[2017-04-16] MEDS: CALCIUM 500MG/VIT-D 200 UNITS COMBO TABLET (FP) PO SCH ×2 (10:21→21:42)
[2017-04-16] MEDS: buPROPion HCL 75 MG TABLET PO SCH (10:21)
[2017-04-16] MEDS: LACTULOSE 20 GM/30 ML UDC (FOR ORAL USE ONLY) PO SCH ×4 (10:21→21:41)
[2017-04-16] MEDS: METHADONE HCL 10 MG TABLET PO SCH ×2 (10:21→21:41)
[2017-04-16] MEDS: THIAMINE HCL 100 MG TABLET (FP) PO SCH (21:48)
[2017-04-16] MEDS: QUEtiapine FUMARATE 50 MG TABLET PO SCH (21:48)
[2017-04-17] MEDS: PRENATAL VITAMINS W/ FOLIC ACID TABLET (FP) PO SCH (10:17)
[2017-04-17] MEDS: CALCIUM 500MG/VIT-D 200 UNITS COMBO TABLET (FP) PO SCH ×2 (10:17→21:44)
[2017-04-17] MEDS: LACTULOSE 20 GM/30 ML UDC (FOR ORAL USE ONLY) PO SCH ×5 (10:17→21:44)
[2017-04-17] MEDS: METHADONE HCL 10 MG TABLET PO SCH ×2 (10:17→21:43)
[2017-04-17] MEDS: ASPIRIN 81 MG CHEWABLE TABLETS PO SCH (10:18)
[2017-04-17] MEDS: buPROPion HCL 75 MG TABLET PO SCH (10:18)
[2017-04-17] MEDS: THIAMINE HCL 100 MG TABLET (FP) PO SCH (21:44)
[2017-04-17] MEDS: QUEtiapine FUMARATE 50 MG TABLET PO SCH (21:45)
[2017-04-18] MEDS: LACTULOSE 20 GM/30 ML UDC (FOR ORAL USE ONLY) PO SCH ×4 (10:25→22:08)
[2017-04-18] MEDS: ASPIRIN 81 MG CHEWABLE TABLETS PO SCH (10:26)
[2017-04-18] MEDS: CALCIUM 500MG/VIT-D 200 UNITS COMBO TABLET (FP) PO SCH ×2 (10:26→22:10)
[2017-04-18] MEDS: buPROPion HCL 75 MG TABLET PO SCH (10:26)
[2017-04-18] MEDS: METHADONE HCL 10 MG TABLET PO SCH (10:26)
[2017-04-18] MEDS: PRENATAL VITAMINS W/ FOLIC ACID TABLET (FP) PO SCH (10:26)
--- NOTE | 2017-04-18 10:42 | PN ---
[facility] Progress Note Note: unable to place in NH because of methadone maintenance treatment and need for 1: 1 with multiple psych admissions. prolonged qtc on EKG, no signs of withdrwal since decreasing methadone dose will decrease dose to 5mg bid. cont to monitor and find placement
[2017-04-18] MEDS: THIAMINE HCL 100 MG TABLET (FP) PO SCH (22:09)
[2017-04-18] MEDS: METHADONE HCL 5 MG TABLET PO SCH (22:09)
[2017-04-18] MEDS: QUEtiapine FUMARATE 50 MG TABLET PO SCH (22:10)
[2017-04-19] MEDS: CALCIUM 500MG/VIT-D 200 UNITS COMBO TABLET (FP) PO SCH ×2 (10:17→21:58)
[2017-04-19] MEDS: ASPIRIN 81 MG CHEWABLE TABLETS PO SCH (10:17)
[2017-04-19] MEDS: buPROPion HCL 75 MG TABLET PO SCH (10:17)
[2017-04-19] MEDS: LACTULOSE 20 GM/30 ML UDC (FOR ORAL USE ONLY) PO SCH ×4 (10:17→21:58)
[2017-04-19] MEDS: PRENATAL VITAMINS W/ FOLIC ACID TABLET (FP) PO SCH (10:17)
[2017-04-19] MEDS: METHADONE HCL 5 MG TABLET PO SCH (10:17)
--- NOTE | 2017-04-19 12:53 | PN ---
S Progress Note Note: continued ankle swelling and redness, no erythema, will start HCTZ 12.5 mg daily , elevate. Will give methadone 10mg qHS and 5 qAM
[2017-04-19] MEDS: HYDROCHLOROTHIAZIDE 12.5 MG CAPSULE (FP) PO SCH (13:20)
[2017-04-19] MEDS: QUEtiapine FUMARATE 50 MG TABLET PO SCH (21:58)
[2017-04-19] MEDS: THIAMINE HCL 100 MG TABLET (FP) PO SCH (21:58)
[2017-04-20] MEDS: buPROPion HCL 75 MG TABLET PO SCH (09:30)
[2017-04-20] MEDS: PRENATAL VITAMINS W/ FOLIC ACID TABLET (FP) PO SCH (09:31)
[2017-04-20] MEDS: ASPIRIN 81 MG CHEWABLE TABLETS PO SCH (09:31)
[2017-04-20] MEDS: CALCIUM 500MG/VIT-D 200 UNITS COMBO TABLET (FP) PO SCH ×2 (09:31→21:43)
[2017-04-20] MEDS: LACTULOSE 20 GM/30 ML UDC (FOR ORAL USE ONLY) PO SCH ×4 (09:31→21:43)
[2017-04-20] MEDS: HYDROCHLOROTHIAZIDE 12.5 MG CAPSULE (FP) PO SCH (09:31)
[2017-04-20] MEDS ORDERED: METHADONE HCL 5 MG TABLET PO SCH (10:00)
--- NOTE | 2017-04-20 14:48 | PN ---
[facility] Progress Note Note: will decrease to 5mg methadone bid dc seroquel off 1;1 risks/alternatives reviewed with Sales Apprentice
[2017-04-20] MEDS: METHADONE HCL 5 MG TABLET PO SCH ×2 (17:20→21:43)
[2017-04-20] MEDS: THIAMINE HCL 100 MG TABLET (FP) PO SCH (21:43)
[2017-04-20] MEDS ORDERED: METHADONE HCL 10 MG TABLET PO SCH (22:00)
[2017-04-21] MEDS: buPROPion HCL 75 MG TABLET PO SCH (09:54)
[2017-04-21] MEDS: HYDROCHLOROTHIAZIDE 12.5 MG CAPSULE (FP) PO SCH (09:54)
[2017-04-21] MEDS: LACTULOSE 20 GM/30 ML UDC (FOR ORAL USE ONLY) PO SCH ×4 (09:54→21:26)
[2017-04-21] MEDS: CALCIUM 500MG/VIT-D 200 UNITS COMBO TABLET (FP) PO SCH ×2 (09:54→21:25)
[2017-04-21] MEDS: METHADONE HCL 5 MG TABLET PO SCH ×2 (09:54→21:26)
[2017-04-21] MEDS: PRENATAL VITAMINS W/ FOLIC ACID TABLET (FP) PO SCH (09:54)
[2017-04-21] MEDS: ASPIRIN 81 MG CHEWABLE TABLETS PO SCH (09:54)
[2017-04-21] MEDS: THIAMINE HCL 100 MG TABLET (FP) PO SCH (21:25)
[2017-04-22] MEDS: CALCIUM 500MG/VIT-D 200 UNITS COMBO TABLET (FP) PO SCH ×2 (09:36→22:30)
[2017-04-22] MEDS: ASPIRIN 81 MG CHEWABLE TABLETS PO SCH (09:36)
[2017-04-22] MEDS: PRENATAL VITAMINS W/ FOLIC ACID TABLET (FP) PO SCH (09:36)
[2017-04-22] MEDS: LACTULOSE 20 GM/30 ML UDC (FOR ORAL USE ONLY) PO SCH ×4 (09:36→22:30)
[2017-04-22] MEDS: HYDROCHLOROTHIAZIDE 12.5 MG CAPSULE (FP) PO SCH (09:36)
[2017-04-22] MEDS: METHADONE HCL 5 MG TABLET PO SCH ×2 (09:36→22:31)
[2017-04-22] MEDS: buPROPion HCL 75 MG TABLET PO SCH (09:37)
[2017-04-22] MEDS: THIAMINE HCL 100 MG TABLET (FP) PO SCH (22:30)
[2017-04-23] MEDS: METHADONE HCL 5 MG TABLET PO SCH ×2 (09:15→21:04)
[2017-04-23] MEDS: buPROPion HCL 75 MG TABLET PO SCH (09:16)
[2017-04-23] MEDS: ASPIRIN 81 MG CHEWABLE TABLETS PO SCH (09:16)
[2017-04-23] MEDS: PRENATAL VITAMINS W/ FOLIC ACID TABLET (FP) PO SCH (09:16)
[2017-04-23] MEDS: HYDROCHLOROTHIAZIDE 12.5 MG CAPSULE (FP) PO SCH (09:16)
[2017-04-23] MEDS: CALCIUM 500MG/VIT-D 200 UNITS COMBO TABLET (FP) PO SCH ×2 (09:16→21:04)
[2017-04-23] MEDS: LACTULOSE 20 GM/30 ML UDC (FOR ORAL USE ONLY) PO SCH ×4 (09:17→21:04)
[2017-04-23] MEDS: IBUPROFEN 600 MG TABLET (FP) PO PRN (15:21)
[2017-04-23] MEDS: THIAMINE HCL 100 MG TABLET (FP) PO SCH (21:04)
[2017-04-24] MEDS: CALCIUM 500MG/VIT-D 200 UNITS COMBO TABLET (FP) PO SCH ×2 (10:04→21:35)
[2017-04-24] MEDS: ASPIRIN 81 MG CHEWABLE TABLETS PO SCH (10:04)
[2017-04-24] MEDS: METHADONE HCL 5 MG TABLET PO SCH ×2 (10:04→21:35)
[2017-04-24] MEDS: HYDROCHLOROTHIAZIDE 12.5 MG CAPSULE (FP) PO SCH (10:04)
[2017-04-24] MEDS: buPROPion HCL 75 MG TABLET PO SCH (10:04)
[2017-04-24] MEDS: LACTULOSE 20 GM/30 ML UDC (FOR ORAL USE ONLY) PO SCH ×4 (10:05→21:35)
[2017-04-24] MEDS: PRENATAL VITAMINS W/ FOLIC ACID TABLET (FP) PO SCH (10:05)
[2017-04-24] MEDS: THIAMINE HCL 100 MG TABLET (FP) PO SCH (21:35)
[2017-04-25] MEDS: METHADONE HCL 5 MG TABLET PO SCH ×2 (10:05→21:27)
[2017-04-25] MEDS: PRENATAL VITAMINS W/ FOLIC ACID TABLET (FP) PO SCH (10:05)
[2017-04-25] MEDS: ASPIRIN 81 MG CHEWABLE TABLETS PO SCH (10:05)
[2017-04-25] MEDS: HYDROCHLOROTHIAZIDE 12.5 MG CAPSULE (FP) PO SCH (10:05)
[2017-04-25] MEDS: buPROPion HCL 75 MG TABLET PO SCH (10:05)
[2017-04-25] MEDS: LACTULOSE 20 GM/30 ML UDC (FOR ORAL USE ONLY) PO SCH ×4 (10:05→21:27)
[2017-04-25] MEDS: CALCIUM 500MG/VIT-D 200 UNITS COMBO TABLET (FP) PO SCH ×2 (10:05→21:28)
[2017-04-25] MEDS: IBUPROFEN 600 MG TABLET (FP) PO PRN (16:00)
[2017-04-25] MEDS: THIAMINE HCL 100 MG TABLET (FP) PO SCH (21:29)
[2017-04-26] MEDS: ASPIRIN 81 MG CHEWABLE TABLETS PO SCH (09:58)
[2017-04-26] MEDS: buPROPion HCL 75 MG TABLET PO SCH (09:58)
[2017-04-26] MEDS: PRENATAL VITAMINS W/ FOLIC ACID TABLET (FP) PO SCH (09:58)
[2017-04-26] MEDS: LACTULOSE 20 GM/30 ML UDC (FOR ORAL USE ONLY) PO SCH ×4 (09:58→23:04)
[2017-04-26] MEDS: CALCIUM 500MG/VIT-D 200 UNITS COMBO TABLET (FP) PO SCH ×2 (09:58→23:05)
[2017-04-26] MEDS: HYDROCHLOROTHIAZIDE 12.5 MG CAPSULE (FP) PO SCH (09:59)
[2017-04-26] MEDS: METHADONE HCL 5 MG TABLET PO SCH (09:59)
--- NOTE | 2017-04-26 12:15 | PN ---
[facility] Progress Note (SOAP) Subjective: no complaints, tolerating reduced methadone dose well, still has swelling of ankles r>l Objective: 04/26/17 12:18 Vital Signs - 8 hr 04/26/17 04/26/17 08:08 09:25 Temperature 98.4 F Pulse Rate 75 79 Respiratory 18 Rate Blood Pressure 131/71 122/63 Laboratory Tests 03/24/17 03/24/17 03/24/17 14:15 14:15 14:15 WBC 7.0 D RBC 3.26 L Hgb 10.4 L Hct 32.3 L MCV 99.0 H MCH 32.1 MCHC 32.4 RDW 14.3 Plt Count 150 D MPV 10.8 Neutrophils % Lymphocytes % Monocytes % Eosinophils % Basophils % PT with INR INR Sodium 137 Potassium 3.8 Chloride 102 Carbon Dioxide 27 Anion Gap 8 BUN 17 Creatinine 1.4 H D Creat Clearance w eGFR 37.86 Random Glucose 120 H D Calcium 7.8 L Total Bilirubin 3.3 H D AST 165 H ALT 110 H Alkaline Phosphatase 154 H Ammonia Total Protein 8.8 H Albumin 2.3 L Total Amylase 103 D Lipase 607 H Urine Color Urine Appearance Urine pH Ur Specific [place] Urine Protein Urine Glucose (UA) Urine Ketones Urine Blood Urine Nitrite Urine Bilirubin Urine Urobilinogen Ur Leukocyte Esterase Urine RBC Urine WBC Ur Epithelial Cells Urine Bacteria Hyaline Casts Urine Mucus RPR Titer Nonreactive 03/24/17 03/24/17 03/24/17 14:15 14:15 23:20 WBC RBC Hgb Hct MCV MCH MCHC RDW Plt Count MPV Neutrophils % Lymphocytes % Monocytes % Eosinophils % Basophils % PT with INR 16.40 H INR 1.48 H Sodium Potassium Chloride Carbon Dioxide Anion Gap BUN Creatinine Creat Clearance w eGFR Random Glucose Calcium Total Bilirubin AST ALT Alkaline Phosphatase Ammonia 59.17 H Total Protein Albumin Total Amylase Lipase Urine Color Elva Urine Appearance Cloudy Urine pH 6.0 Ur Specific [place] 1.020 Urine Protein 1+ H Urine Glucose (UA) Negative Urine Ketones Negative Urine Blood Negative Urine Nitrite Negative Urine Bilirubin 2.0 Urine Urobilinogen 4.0 e.u/dl H Ur Leukocyte Esterase Negative Urine RBC 31 Urine WBC 3 Ur Epithelial Cells Many Urine Bacteria Rare Hyaline Casts 5 Urine Mucus Rare RPR Titer 03/28/17 03/28/17 03/28/17 07:00 07:00 07:00 WBC 7.6 RBC 3.26 L Hgb 10.3 L Hct 32.0 L MCV 98.0 H MCH 31.4 MCHC 32.1 RDW 13.9 Plt Count 153 MPV 10.9 Neutrophils % 48.1 Lymphocytes % 35.1 Monocytes % 15.8 H Eosinophils % 0.5 Basophils % 0.5 PT with INR 16.20 H INR 1.47 H Sodium 139 Potassium 4.0 Chloride 105 Carbon Dioxide 25 Anion Gap 9 BUN 22 H D Creatinine 1.0 D Creat Clearance w eGFR 55.82 Random Glucose 103 Calcium 8.7 Total Bilirubin 2.3 H D AST 157 H ALT 110 H Alkaline Phosphatase 172 H Ammonia Total Protein 8.4 H Albumin 2.3 L Total Amylase Lipase 499 H Urine Color Urine Appearance Urine pH Ur Specific [place] Urine Protein Urine Glucose (UA) Urine Ketones Urine Blood Urine Nitrite Urine Bilirubin Urine Urobilinogen Ur Leukocyte Esterase Urine RBC Urine WBC Ur Epithelial Cells Urine Bacteria Hyaline Casts Urine Mucus RPR Titer 04/06/17 04/06/17 04/06/17 07:00 07:00 07:00 WBC 7.9 RBC 3.54 L Hgb 10.9 Hct 33.9 MCV 95.6 MCH 30.8 MCHC 32.3 RDW 13.1 Plt Count 139 MPV 12.0 H D Neutrophils % 49.9 Lymphocytes % 36.3 Monocytes % 11.5 H Eosinophils % 1.8 D Basophils % 0.5 PT with INR 16.20 H INR 1.43 H Sodium 138 Potassium 4.2 Chloride 100 Carbon Dioxide 31 D Anion Gap 7 L BUN 21 H Creatinine 1.0 Creat Clearance w eGFR 55.82 Random Glucose 85 Calcium 8.2 L Total Bilirubin 1.7 H D AST 144 H ALT 96 H Alkaline Phosphatase 110 D Ammonia Total Protein 8.4 H Albumin 2.1 L Total Amylase Lipase 288 Urine Color Urine Appearance Urine pH Ur Specific [place] Urine Protein Urine Glucose (UA) Urine Ketones Urine Blood Urine Nitrite Urine Bilirubin Urine Urobilinogen Ur Leukocyte Esterase Urine RBC Urine WBC Ur Epithelial Cells Urine Bacteria Hyaline Casts Urine Mucus RPR Titer 04/06/17 07:00 WBC RBC Hgb Hct MCV MCH MCHC RDW Plt Count MPV Neutrophils % Lymphocytes % Monocytes % Eosinophils % Basophils % PT with INR INR Sodium Potassium Chloride Carbon Dioxide Anion Gap BUN Creatinine Creat Clearance w eGFR Random Glucose Calcium Total Bilirubin AST ALT Alkaline Phosphatase Ammonia 121.34 H Total Protein Albumin Total Amylase Lipase Urine Color Urine Appearance Urine pH Ur Specific [place] Urine Protein Urine Glucose (UA) Urine Ketones Urine Blood Urine Nitrite Urine Bilirubin Urine Urobilinogen Ur Leukocyte Esterase Urine RBC Urine WBC Ur Epithelial Cells Urine Bacteria Hyaline Casts Urine Mucus RPR Titer elevated ammonia, aleert and oriented, no drying in good spirits, bilateral swollen ankles r>L no erythema, some brawny induration noted Assessment: 04/26/17 12:19 heaptix encephalopthy, much iimporved s/p pancreatitis making goood recovery toelrating lower methadone dose Plan: change methadone to 10mg daily, give extra 5 mg today, eleavte legs, continue current medications to be discharged next week, prescriptions sent to pharmacy.
[2017-04-26] MEDS: IBUPROFEN 600 MG TABLET (FP) PO PRN (15:10)
[2017-04-26] MEDS ORDERED: METHADONE HCL 5 MG TABLET PO ONE (18:00)
[2017-04-26] MEDS: THIAMINE HCL 100 MG TABLET (FP) PO SCH (23:05)
[2017-04-27] MEDS: METHADONE HCL 10 MG TABLET PO SCH (06:16)
[2017-04-27] MEDS: CALCIUM 500MG/VIT-D 200 UNITS COMBO TABLET (FP) PO SCH ×2 (10:52→21:44)
[2017-04-27] MEDS: HYDROCHLOROTHIAZIDE 12.5 MG CAPSULE (FP) PO SCH (10:52)
[2017-04-27] MEDS: ASPIRIN 81 MG CHEWABLE TABLETS PO SCH (10:52)
[2017-04-27] MEDS: LACTULOSE 20 GM/30 ML UDC (FOR ORAL USE ONLY) PO SCH ×4 (10:52→21:44)
[2017-04-27] MEDS: PRENATAL VITAMINS W/ FOLIC ACID TABLET (FP) PO SCH (10:53)
[2017-04-27] MEDS: buPROPion HCL 75 MG TABLET PO SCH (10:53)
[2017-04-27] MEDS ORDERED: AMMONIUM LACTATE 12% LOTION 225 GM BOTTLE TP PRN (16:45)
[2017-04-27] MEDS: IBUPROFEN 600 MG TABLET (FP) PO PRN (18:01)
[2017-04-27] MEDS: THIAMINE HCL 100 MG TABLET (FP) PO SCH (21:44)
[2017-04-28] MEDS: IBUPROFEN 600 MG TABLET (FP) PO PRN (02:51)
[2017-04-28] MEDS: METHADONE HCL 10 MG TABLET PO SCH (06:05)
[2017-04-28] MEDS: CALCIUM 500MG/VIT-D 200 UNITS COMBO TABLET (FP) PO SCH ×2 (10:01→21:38)
[2017-04-28] MEDS: ASPIRIN 81 MG CHEWABLE TABLETS PO SCH (10:01)
[2017-04-28] MEDS: PRENATAL VITAMINS W/ FOLIC ACID TABLET (FP) PO SCH (10:01)
[2017-04-28] MEDS: HYDROCHLOROTHIAZIDE 12.5 MG CAPSULE (FP) PO SCH (10:02)
[2017-04-28] MEDS: buPROPion HCL 75 MG TABLET PO SCH (10:02)
[2017-04-28] MEDS: LACTULOSE 20 GM/30 ML UDC (FOR ORAL USE ONLY) PO SCH ×4 (10:02→21:38)
[2017-04-28] MEDS: SPIRONOLACTONE 25 MG TABLET (FP) PO SCH (17:08)
[2017-04-28] MEDS: THIAMINE HCL 100 MG TABLET (FP) PO SCH (21:38)
[2017-04-29] MEDS: METHADONE HCL 10 MG TABLET PO SCH (06:09)
[2017-04-29] MEDS: SPIRONOLACTONE 25 MG TABLET (FP) PO SCH ×2 (10:10→17:05)
[2017-04-29] MEDS: LACTULOSE 20 GM/30 ML UDC (FOR ORAL USE ONLY) PO SCH ×4 (10:10→21:37)
[2017-04-29] MEDS: ASPIRIN 81 MG CHEWABLE TABLETS PO SCH (10:10)
[2017-04-29] MEDS: CALCIUM 500MG/VIT-D 200 UNITS COMBO TABLET (FP) PO SCH ×2 (10:12→21:37)
[2017-04-29] MEDS: PRENATAL VITAMINS W/ FOLIC ACID TABLET (FP) PO SCH (10:12)
[2017-04-29] MEDS: buPROPion HCL 75 MG TABLET PO SCH (10:12)
[2017-04-29] MEDS: HYDROCHLOROTHIAZIDE 12.5 MG CAPSULE (FP) PO SCH (10:12)
[2017-04-29] MEDS: IBUPROFEN 600 MG TABLET (FP) PO PRN (10:14)
[2017-04-29] MEDS: THIAMINE HCL 100 MG TABLET (FP) PO SCH (21:37)
[2017-04-30] MEDS: METHADONE HCL 10 MG TABLET PO SCH (05:52)
--- NOTE | 2017-04-30 08:37 | PN ---
Psychiatric Progress Note Vital Signs: Vital Signs Period Temp Pulse Resp BP Sys/Craig Pulse Ox Last 24 Hr 98.5 F 73-95 18-20 126-129/69-75 Date of Session: 04/30/17 Chief Complaint:: Discharge Note HPI: Patient addressing Alcohol Dependence comorbid with Opoid Dependence on Agonist Therapy and Bipolar Disorder ROS: Hep C, Asthma, HTN, LBP, Cirrhosis of the liver and Hepatic Encephalopathy were medically managed Current Medications: Active Medications Generic Name Dose Route Start Last Admin Trade Name Freq PRN Reason Stop Dose Admin Al Hydroxide/Mg Hydroxide 30 ml 03/24/17 14:10 Mylanta Oral Suspension - PO Q6H PRN DYSPEPSIA Albuterol Sulfate 2 puff 03/24/17 14:17 Ventolin Hfa Inhaler - IH Q4H PRN ASTHMA Aspirin 81 mg 03/25/17 10:00 04/29/17 10:10 Asa - PO 81 mg DAILY ROSALIO Administration Bupropion HCl 75 mg 03/27/17 11:00 04/29/17 10:12 Wellbutrin - PO 75 mg DAILY ROSALIO Administration Calcium Carbonate/Cholecalciferol 1 tab 03/24/17 22:00 04/29/17 21:37 Os-Siddhartha 500+D - PO 1 tab BID ROSALIO Administration Eucalyptus/Menthol/Phenol/Sorbitol 1 each 03/24/17 14:10 03/26/17 06:10 Cepastat Lozenge - MM 1 each Q4H PRN Administration SORE THROAT Hydrochlorothiazide 12.5 mg 04/19/17 13:00 04/29/17 10:12 Hctz - PO 12.5 mg DAILY ROSALIO Administration Ibuprofen 600 mg 04/23/17 14:28 04/29/17 10:14 Motrin - PO 600 mg Q6H PRN Administration FEVER Lactic Acid 1 applic 04/27/17 16:45 Lac-Hydrin 12 TP DAILY PRN DRY SKIN Lactulose 20 gm 04/06/17 18:00 04/29/17 21:37 Cephulac (Oral Use) PO Not Given QID ROSALIO Magnesium Citrate 300 ml 03/24/17 14:10 Citroma - PO Q48H PRN CONSTIPATION Magnesium Hydroxide 30 ml 03/24/17 14:10 Milk Of Magnesia - PO DAILY PRN CONSTIPATION Methadone HCl 10 mg 04/27/17 06:00 04/30/17 05:52 Dolophine - PO 10 mg DAILY@0600 ROSALIO Administration Multivit/Folic Acid/Iron 1 tab 03/25/17 10:00 04/29/17 10:12 Vitamins (Sjr) - PO 1 tab DAILY ROSALIO Administration Spironolactone 25 mg 04/28/17 18:00 04/29/17 17:05 Aldactone - PO 25 mg BID@1000,1800 ROSALIO Administration Thiamine HCl 100 mg 03/24/17 22:00 04/29/17 21:37 Vitamin B1 - PO 100 mg HS ROSALIO Administration Current Side Effect: No Lab tests ordered: Yes Lab tests reviewed: Yes Provider note:: Patient will complete this program on 05/01/17.She has met her treatment goals and will continue to address her issues in outpatient treatment at [facility]. Soon following admission, patient became very confused and disoriented.She was placed on nursing 1:1 for safety & ADL care. She was medically evaluated, diagnosed with "Hepatic Encephalopathy" and treated with Lactulose and low dose of Haloperidol prn to control agitation. Seroquel was discontinued because by virtue of its anticholinergic properties potentiated patient's ams state.Methadone dosage was drastically reduced as well. She responded well to medical management and for the past week and a half, she has been participating in different activities on the unit including group sessions. Told sports book writer that from her participation in this program, she has acquired the tools she needed to make changes in her lifestyle. She is stable for discharge on 05/01/17 Total face to face time:: 35 Mental Status Exam - Mental Status Exam Alert and Oriented to: Time, Place, Person Cognitive Function: Fair Patient Appearance: Well Groomed Mood: Hopeful, Euthymic Affect: Appropriate Patient Behavior: Cooperative Speech Pattern: Clear Voice Loudness: Normal Thought Process: Intact, Goal Oriented Thought Disorder: Not Present Hallucinations: Denies Suicidal Ideation: Denies Insight/Judgement: Fair Sleep: Well Appetite: Good Muscle strength/Tone: Normal Gait/Station: Normal Psychiatric Treatment Plan - Problem List (1) Hepatitis C carrier Current Visit: No (2) Essential hypertension Current Visit: No (3) Low back pain Current Visit: No (4) Cirrhosis of liver Current Visit: No (5) Asthma Current Visit: No (6) Opioid dependence on agonist therapy Current Visit: No (7) Bipolar disorder Current Visit: No Comment: Self-report. (8) Alcohol dependence Current Visit: No (9) History of pancreatitis Current Visit: Yes Initial treatment plan: Patient will be discharged tomorrow and referred to [facility] for outpatient treatment
[2017-04-30] MEDS: ASPIRIN 81 MG CHEWABLE TABLETS PO SCH (09:52)
[2017-04-30] MEDS: SPIRONOLACTONE 25 MG TABLET (FP) PO SCH ×2 (09:52→17:07)
[2017-04-30] MEDS: PRENATAL VITAMINS W/ FOLIC ACID TABLET (FP) PO SCH (09:52)
[2017-04-30] MEDS: HYDROCHLOROTHIAZIDE 12.5 MG CAPSULE (FP) PO SCH (09:52)
[2017-04-30] MEDS: LACTULOSE 20 GM/30 ML UDC (FOR ORAL USE ONLY) PO SCH ×4 (09:52→22:00)
[2017-04-30] MEDS: buPROPion HCL 75 MG TABLET PO SCH (09:52)
[2017-04-30] MEDS: CALCIUM 500MG/VIT-D 200 UNITS COMBO TABLET (FP) PO SCH ×2 (09:52→22:00)
[2017-04-30] MEDS: IBUPROFEN 600 MG TABLET (FP) PO PRN (13:55)
[2017-04-30] MEDS: THIAMINE HCL 100 MG TABLET (FP) PO SCH (22:00)
[2017-05-01] MEDS: METHADONE HCL 10 MG TABLET PO SCH (06:06)
[2017-05-01 07:09] VITALS: TEMP 98
[2017-05-01 09:29] VITALS: BP 129/74; PULSE 84
[2017-05-01] MEDS: LACTULOSE 20 GM/30 ML UDC (FOR ORAL USE ONLY) PO SCH (09:31)
[2017-05-01] MEDS: buPROPion HCL 75 MG TABLET PO SCH (09:31)
[2017-05-01] MEDS: SPIRONOLACTONE 25 MG TABLET (FP) PO SCH (09:31)
[2017-05-01] MEDS: CALCIUM 500MG/VIT-D 200 UNITS COMBO TABLET (FP) PO SCH (09:31)
[2017-05-01] MEDS: HYDROCHLOROTHIAZIDE 12.5 MG CAPSULE (FP) PO SCH (09:31)
[2017-05-01] MEDS: ASPIRIN 81 MG CHEWABLE TABLETS PO SCH (09:31)
[2017-05-01] MEDS: PRENATAL VITAMINS W/ FOLIC ACID TABLET (FP) PO SCH (09:31)
== END 2017-05-01 09:45 | disposition home or self-care (01) | DRG 772 ==
LOC: YASAS 09:14 → Y3W 14:59
PROVIDERS: ADMIT Psychiatry & Neurology Psychiatry; ATTEND Psychiatry & Neurology Psychiatry
PROC: HZ42ZZZ Group Counseling for Substance Abuse Treatment, Cognitive-Behavioral (ICD-10-PCS; principal; 2017-03-24)
DX: F10.230 Alcohol dependence with withdrawal, uncomplicated (principal); F31.9 Bipolar disorder, unspecified; J45.20 Mild intermittent asthma, uncomplicated; B18.2 Chronic viral hepatitis C; I10 Essential (primary) hypertension; M54.5 Low back pain; K85.90 Acute pancreatitis without necrosis or infection, unspecified
CPT/HCPCS: 36415; 71020-TC; 80053; 81003; 81015; 82140; 82150; 83690; 85025; 85027; 85610; 86593; 90688; 93005; 93010; G0008

== ENCOUNTER 2017-12-26 13:09 | Inpatient (IN) | payer OTHER ==
[2017-12-26] MEDS ORDERED: P-EPHED 60MG/TRIPROLIDI 2.5MG TABLET PO PRN (13:23)
[2017-12-26] MEDS ORDERED: LOPERAMIDE HCL 2 MG CAPSULE PO PRN (13:23)
[2017-12-26] MEDS ORDERED: ACETAMINOPHEN 325 MG TABLET (FP) PO PRN (13:23)
[2017-12-26] MEDS ORDERED: guaiFENesin/D-METHORPHAN HB 10 ML UNIT-DOSE CUPS PO PRN (13:23)
[2017-12-26] MEDS ORDERED: MAGNESIUM CITRATE 300 ML BOTTLE PO PRN (13:23)
[2017-12-26] MEDS ORDERED: MAGNESIUM HYDROX 2400MG/30ML ORAL SUSPENSION 30 ML CUP PO PRN (13:23)
[2017-12-26] MEDS ORDERED: MENTHOL/PHENOL 1 EACH UD MM PRN (13:23)
[2017-12-26] MEDS ORDERED: ALBUTEROL SO4 8 GM HFA INHALER IH PRN (13:24)
[2017-12-26] MEDS ORDERED: ALBUTEROL SO4 2.5/IPRATROPIUM 0.5 INH SOL 3 ML VIAL.NEB. NEB PRN (13:25)
--- NOTE | 2017-12-26 13:27 | HP ---
[facility] Rehab Assess/Revision - Admission History Admitted to Rehab from: [facility] [place] Date of Admission to Rehab: 12/26/17 - Findings Detox History & Physical reviewed: Yes Concur with findings: Yes Inpatient Rehab Admission - Initial Determination Are CD services needed?: Yes Free of communicable disease: Yes Not in need of hospitalization: Yes - Rehab Admission Criteria Previous failed treatment: Yes Poor recovery environment: Yes Comorbidities: Yes Lacks judgement: Yes Patient is meeting Inpatient Rehab admission criteria:: Yes
[2017-12-26] MEDS: IBUPROFEN 400 MG TABLET (FP) PO PRN (15:23)
[2017-12-26] MEDS: LACTULOSE 20 GM/30 ML UDC (FOR ORAL USE ONLY) PO SCH ×3 (15:23→21:15)
[2017-12-26] MEDS: VITAMINS A AND D TOPICAL OINTMENT 60 GM TUBE TP SCH ×2 (15:23→22:05)
[2017-12-26 15:35] VITALS: BMI 34.3
[2017-12-26] MEDS ORDERED: PT OWN MED DRAWER 7, Y5N ONE (15:50)
--- NOTE | 2017-12-26 17:29 | PN ---
[facility] Progress Note Note: Psychiatry Attending's svp innovation partnerships note : Called for renewal of order for wellbutrin. Ms Marie is already known to this marketing copywriter. Transferred today from [address] [place] [address]. Wellbutrin 75 mg po daily. Order renewed.
[2017-12-26] MEDS: CALCIUM 500MG/VIT-D 200 UNITS COMBO TABLET (FP) PO SCH (21:15)
[2017-12-26] MEDS: RANITIDINE HCL 150 MG TABLET (FP) PO SCH (21:15)
[2017-12-26] MEDS: amLODIPine BESYLATE 5 MG TABLET (FP) PO SCH (21:16)
[2017-12-26] MEDS: THIAMINE HCL 100 MG TABLET (FP) PO SCH (21:16)
[2017-12-27] MEDS: IBUPROFEN 400 MG TABLET (FP) PO PRN ×2 (04:14→23:18)
[2017-12-27] MEDS: CALCIUM 500MG/VIT-D 200 UNITS COMBO TABLET (FP) PO SCH ×2 (09:01→21:15)
[2017-12-27] MEDS: PRENATAL VITAMINS W/ FOLIC ACID TABLET (FP) PO SCH (09:01)
[2017-12-27] MEDS: HYDROCHLOROTHIAZIDE 12.5 MG CAPSULE (FP) PO SCH (09:01)
[2017-12-27] MEDS: amLODIPine BESYLATE 5 MG TABLET (FP) PO SCH ×2 (09:01→21:15)
[2017-12-27] MEDS: ASPIRIN 81 MG CHEWABLE TABLETS PO SCH (09:01)
[2017-12-27] MEDS: buPROPion HCL 75 MG TABLET PO SCH (09:02)
[2017-12-27] MEDS: LACTULOSE 20 GM/30 ML UDC (FOR ORAL USE ONLY) PO SCH ×4 (09:02→21:16)
[2017-12-27] MEDS: RANITIDINE HCL 150 MG TABLET (FP) PO SCH ×2 (09:02→21:15)
[2017-12-27] MEDS: VITAMINS A AND D TOPICAL OINTMENT 60 GM TUBE TP SCH ×2 (09:02→21:15)
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
[2017-12-27] MEDS: THIAMINE HCL 100 MG TABLET (FP) PO SCH (21:15)
[2017-12-27] MEDS: MELATONIN 5 MG TABLETS PO PRN (21:16)
[2017-12-28] MEDS: ASPIRIN 81 MG CHEWABLE TABLETS PO SCH (09:01)
[2017-12-28] MEDS: CALCIUM 500MG/VIT-D 200 UNITS COMBO TABLET (FP) PO SCH ×2 (09:01→21:15)
[2017-12-28] MEDS: PRENATAL VITAMINS W/ FOLIC ACID TABLET (FP) PO SCH (09:01)
[2017-12-28] MEDS: RANITIDINE HCL 150 MG TABLET (FP) PO SCH ×2 (09:01→21:15)
[2017-12-28] MEDS: LACTULOSE 20 GM/30 ML UDC (FOR ORAL USE ONLY) PO SCH ×4 (09:01→21:16)
[2017-12-28] MEDS: buPROPion HCL 75 MG TABLET PO SCH (09:02)
[2017-12-28] MEDS: amLODIPine BESYLATE 5 MG TABLET (FP) PO SCH ×2 (09:02→21:15)
[2017-12-28] MEDS: HYDROCHLOROTHIAZIDE 12.5 MG CAPSULE (FP) PO SCH (09:02)
[2017-12-28] MEDS: VITAMINS A AND D TOPICAL OINTMENT 60 GM TUBE TP SCH ×2 (09:03→21:16)
--- NOTE | 2017-12-28 14:25 | PN ---
[facility] Progress Note Note: Vital Signs Temperature 97.8 F 12/28/17 06:52 Pulse Rate 89 12/28/17 09:36 Respiratory Rate 18 12/28/17 06:52 Blood Pressure 132/78 12/28/17 09:36 O2 Sat by Pulse Oximetry (%) Patient c/o of bilateral leg swelling reports at home use TEDS b/l QD, dry skin. Patient also reports back pain and pending back surgery as per back patient pain is a result of suicide attempt in which she tried to jump on to the train tracks and hurt her back. c/O of poor appetite. Patient last Ammonia level 12/26/17 71.8, patient report she has taken lactulose as prescribed. Denies paresthesia, SOB, CP. A/P AOx3 no distress no JVD no adventitious breath sounds + back pain + edema, non pitting both lower extremities, no erythema, + pulses through out, FULL ROM ambulating with cane - b/l lower extremity edema - back pain - dry skin plan: lidocaine patch qd tizanidine 2mg q8h fall precautions TEDS b/l and leg elevation Ensure QD PO Increase fluids Aveeno soap Continue lactulose repeat ammonia levels in AM continue to monitor
[2017-12-28] MEDS: LIDOCAINE 5% TOPICAL PATCH TP SCH (14:47)
[2017-12-28] MEDS: COLLOIDAL OATMEAL 1 BAR EACH TP PRN (14:47)
[2017-12-28] MEDS: IBUPROFEN 400 MG TABLET (FP) PO PRN (19:25)
[2017-12-28] MEDS: THIAMINE HCL 100 MG TABLET (FP) PO SCH (21:16)
[2017-12-28] MEDS: LIDOCAINE PATCH REMOVAL MC SCH (23:30)
[2017-12-29] MEDS ORDERED: PT OWN MED DRAWER 7, Y5N ONE ×2 (08:25→17:02)
[2017-12-29] MEDS: buPROPion HCL 75 MG TABLET PO SCH (09:55)
[2017-12-29] MEDS: VITAMINS A AND D TOPICAL OINTMENT 60 GM TUBE TP SCH ×2 (09:55→21:09)
[2017-12-29] MEDS: amLODIPine BESYLATE 5 MG TABLET (FP) PO SCH ×2 (09:55→21:09)
[2017-12-29] MEDS: RANITIDINE HCL 150 MG TABLET (FP) PO SCH ×2 (09:55→21:09)
[2017-12-29] MEDS: ASPIRIN 81 MG CHEWABLE TABLETS PO SCH (09:55)
[2017-12-29] MEDS: PRENATAL VITAMINS W/ FOLIC ACID TABLET (FP) PO SCH (09:55)
[2017-12-29] MEDS: LACTULOSE 20 GM/30 ML UDC (FOR ORAL USE ONLY) PO SCH ×4 (09:55→21:09)
[2017-12-29] MEDS: CALCIUM 500MG/VIT-D 200 UNITS COMBO TABLET (FP) PO SCH ×2 (09:55→21:09)
[2017-12-29] MEDS: HYDROCHLOROTHIAZIDE 12.5 MG CAPSULE (FP) PO SCH (09:55)
[2017-12-29] MEDS: LIDOCAINE 5% TOPICAL PATCH TP SCH (10:32)
[2017-12-29] MEDS: IBUPROFEN 400 MG TABLET (FP) PO PRN ×2 (12:18→23:19)
[2017-12-29] MEDS: MAG HYDROX/AL HYDROX/SIMETH 30 ML UNIT-DOSE CUP PO PRN (13:35)
--- NOTE | 2017-12-29 15:25 | PN ---
[facility] Progress Note Note: AMMONIA LEVEL 67.8. ON LACTULOSE 20G QID. WILL CONTINUE SAME DOSE AND REPEAT LEVEL IN 2 DAYS. CONTINUE TO MONITOR CLINICALLY.
[2017-12-29] MEDS: LIDOCAINE PATCH REMOVAL MC SCH (21:09)
[2017-12-29] MEDS: THIAMINE HCL 100 MG TABLET (FP) PO SCH (21:09)
[2017-12-30] MEDS ORDERED: PT OWN MED DRAWER 7, Y5N ONE ×2 (08:28→17:05)
[2017-12-30] MEDS: HYDROCHLOROTHIAZIDE 12.5 MG CAPSULE (FP) PO SCH (09:46)
[2017-12-30] MEDS: CALCIUM 500MG/VIT-D 200 UNITS COMBO TABLET (FP) PO SCH ×2 (09:46→21:19)
[2017-12-30] MEDS: buPROPion HCL 75 MG TABLET PO SCH (09:46)
[2017-12-30] MEDS: amLODIPine BESYLATE 5 MG TABLET (FP) PO SCH ×2 (09:46→21:19)
[2017-12-30] MEDS: PRENATAL VITAMINS W/ FOLIC ACID TABLET (FP) PO SCH (09:47)
[2017-12-30] MEDS: ASPIRIN 81 MG CHEWABLE TABLETS PO SCH (09:47)
[2017-12-30] MEDS: RANITIDINE HCL 150 MG TABLET (FP) PO SCH ×2 (09:47→21:19)
[2017-12-30] MEDS: LACTULOSE 20 GM/30 ML UDC (FOR ORAL USE ONLY) PO SCH ×4 (09:47→21:20)
[2017-12-30] MEDS: LIDOCAINE 5% TOPICAL PATCH TP SCH (09:49)
[2017-12-30] MEDS: VITAMINS A AND D TOPICAL OINTMENT 60 GM TUBE TP SCH ×2 (10:59→21:20)
[2017-12-30] MEDS: THIAMINE HCL 100 MG TABLET (FP) PO SCH (21:19)
[2017-12-30] MEDS: LIDOCAINE PATCH REMOVAL MC SCH (21:20)
[2017-12-30] MEDS: MELATONIN 5 MG TABLETS PO PRN (21:21)
[2017-12-30] MEDS: TIZANIDINE HCL 2 MG TABLET PO PRN (21:22)
[2017-12-31] MEDS: ASPIRIN 81 MG CHEWABLE TABLETS PO SCH (09:33)
[2017-12-31] MEDS: PRENATAL VITAMINS W/ FOLIC ACID TABLET (FP) PO SCH (09:34)
[2017-12-31] MEDS: amLODIPine BESYLATE 5 MG TABLET (FP) PO SCH ×2 (09:34→21:07)
[2017-12-31] MEDS: HYDROCHLOROTHIAZIDE 12.5 MG CAPSULE (FP) PO SCH (09:34)
[2017-12-31] MEDS: CALCIUM 500MG/VIT-D 200 UNITS COMBO TABLET (FP) PO SCH ×2 (09:34→21:07)
[2017-12-31] MEDS: buPROPion HCL 75 MG TABLET PO SCH (09:34)
[2017-12-31] MEDS: VITAMINS A AND D TOPICAL OINTMENT 60 GM TUBE TP SCH ×2 (09:34→21:08)
[2017-12-31] MEDS: LACTULOSE 20 GM/30 ML UDC (FOR ORAL USE ONLY) PO SCH ×4 (09:34→21:07)
[2017-12-31] MEDS: LIDOCAINE 5% TOPICAL PATCH TP SCH (09:35)
[2017-12-31] MEDS: RANITIDINE HCL 150 MG TABLET (FP) PO SCH ×2 (09:35→21:07)
--- NOTE | 2017-12-31 11:06 | PN ---
[facility] Progress Note Note: Vital Signs Temperature 98.3 F 12/31/17 06:42 Pulse Rate 73 12/31/17 06:42 Respiratory Rate 18 12/31/17 06:42 Blood Pressure 94/56 12/31/17 06:42 O2 Sat by Pulse Oximetry (%) elevated ammonia level, asymptomatic. Patient lactulose QID, but non-adherent with medication. Patient to take medication as directed. Repeat ammonia levels if worsening symptoms patient to be transported to [facility]
[2017-12-31] MEDS: THIAMINE HCL 100 MG TABLET (FP) PO SCH (21:07)
[2017-12-31] MEDS: LIDOCAINE PATCH REMOVAL MC SCH (21:08)
[2017-12-31] MEDS: IBUPROFEN 400 MG TABLET (FP) PO PRN (23:20)
[2017-12-31] MEDS: MELATONIN 5 MG TABLETS PO PRN (23:20)
[2017-12-31] MEDS: TIZANIDINE HCL 2 MG TABLET PO PRN (23:20)
[2018-01-01] MEDS: IBUPROFEN 400 MG TABLET (FP) PO PRN (06:42)
[2018-01-01] MEDS ORDERED: PT OWN MED DRAWER 7, Y5N ONE ×3 (08:44→23:44)
[2018-01-01] MEDS: LACTULOSE 20 GM/30 ML UDC (FOR ORAL USE ONLY) PO SCH ×4 (10:18→21:20)
[2018-01-01] MEDS: HYDROCHLOROTHIAZIDE 12.5 MG CAPSULE (FP) PO SCH (10:19)
[2018-01-01] MEDS: PRENATAL VITAMINS W/ FOLIC ACID TABLET (FP) PO SCH (10:19)
[2018-01-01] MEDS: RANITIDINE HCL 150 MG TABLET (FP) PO SCH ×2 (10:19→21:19)
[2018-01-01] MEDS: amLODIPine BESYLATE 5 MG TABLET (FP) PO SCH ×2 (10:19→21:19)
[2018-01-01] MEDS: buPROPion HCL 75 MG TABLET PO SCH (10:19)
[2018-01-01] MEDS: CALCIUM 500MG/VIT-D 200 UNITS COMBO TABLET (FP) PO SCH ×2 (10:19→21:19)
[2018-01-01] MEDS: LIDOCAINE 5% TOPICAL PATCH TP SCH (10:19)
[2018-01-01] MEDS: VITAMINS A AND D TOPICAL OINTMENT 60 GM TUBE TP SCH ×2 (10:20→21:20)
[2018-01-01] MEDS: ASPIRIN 81 MG CHEWABLE TABLETS PO SCH (10:55)
--- NOTE | 2018-01-01 14:52 | PN ---
S Progress Note Note: PATIENT WITH LBM X 3. PATIENT ON LACTULOSE FOR ELEVATED AMMONIA LEVELS. LEVEL TODAY 65.6. WILL CONTINUE LACTULOSE ORDERED AND REPEAT LEVEL IN 72 HOURS. CONTINUE TO MONITOR CLINICALLY.
[2018-01-01] MEDS: THIAMINE HCL 100 MG TABLET (FP) PO SCH (21:19)
[2018-01-01] MEDS: LIDOCAINE PATCH REMOVAL MC SCH (21:20)
[2018-01-01] MEDS: MELATONIN 5 MG TABLETS PO PRN (21:21)
[2018-01-02] MEDS: ASPIRIN 81 MG CHEWABLE TABLETS PO SCH (09:27)
[2018-01-02] MEDS: amLODIPine BESYLATE 5 MG TABLET (FP) PO SCH ×2 (09:28→21:08)
[2018-01-02] MEDS: buPROPion HCL 75 MG TABLET PO SCH (09:28)
[2018-01-02] MEDS: CALCIUM 500MG/VIT-D 200 UNITS COMBO TABLET (FP) PO SCH ×2 (09:28→21:08)
[2018-01-02] MEDS: LACTULOSE 20 GM/30 ML UDC (FOR ORAL USE ONLY) PO SCH ×4 (09:28→21:08)
[2018-01-02] MEDS: LIDOCAINE 5% TOPICAL PATCH TP SCH (09:28)
[2018-01-02] MEDS: HYDROCHLOROTHIAZIDE 12.5 MG CAPSULE (FP) PO SCH (09:28)
[2018-01-02] MEDS: PRENATAL VITAMINS W/ FOLIC ACID TABLET (FP) PO SCH (09:28)
[2018-01-02] MEDS: RANITIDINE HCL 150 MG TABLET (FP) PO SCH ×2 (09:28→21:08)
[2018-01-02] MEDS: VITAMINS A AND D TOPICAL OINTMENT 60 GM TUBE TP SCH ×2 (09:29→21:09)
[2018-01-02] MEDS: TIZANIDINE HCL 2 MG TABLET PO PRN (14:08)
[2018-01-02] MEDS: hydrOXYzine PAMOATE 50 MG CAPSULE (FP) PO PRN (14:08)
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
[2018-01-02] MEDS: LIDOCAINE PATCH REMOVAL MC SCH (21:09)
[2018-01-02] MEDS: THIAMINE HCL 100 MG TABLET (FP) PO SCH (21:09)
[2018-01-03] MEDS: TIZANIDINE HCL 2 MG TABLET PO PRN (08:36)
[2018-01-03] MEDS: LIDOCAINE 5% TOPICAL PATCH TP SCH (11:10)
[2018-01-03] MEDS: VITAMINS A AND D TOPICAL OINTMENT 60 GM TUBE TP SCH ×2 (11:10→21:14)
[2018-01-03] MEDS: LACTULOSE 20 GM/30 ML UDC (FOR ORAL USE ONLY) PO SCH ×4 (11:10→21:13)
[2018-01-03] MEDS: RANITIDINE HCL 150 MG TABLET (FP) PO SCH ×2 (11:10→21:13)
[2018-01-03] MEDS: buPROPion HCL 75 MG TABLET PO SCH (11:11)
[2018-01-03] MEDS: CALCIUM 500MG/VIT-D 200 UNITS COMBO TABLET (FP) PO SCH ×2 (11:11→21:13)
[2018-01-03] MEDS: ASPIRIN 81 MG CHEWABLE TABLETS PO SCH (11:11)
[2018-01-03] MEDS: PRENATAL VITAMINS W/ FOLIC ACID TABLET (FP) PO SCH (11:11)
[2018-01-03] MEDS: amLODIPine BESYLATE 5 MG TABLET (FP) PO SCH ×2 (11:13→21:13)
[2018-01-03] MEDS: HYDROCHLOROTHIAZIDE 12.5 MG CAPSULE (FP) PO SCH (11:13)
[2018-01-03] MEDS: IBUPROFEN 400 MG TABLET (FP) PO PRN (19:47)
[2018-01-03] MEDS: THIAMINE HCL 100 MG TABLET (FP) PO SCH (21:13)
[2018-01-03] MEDS: LIDOCAINE PATCH REMOVAL MC SCH (21:14)
[2018-01-04] MEDS: TIZANIDINE HCL 2 MG TABLET PO PRN (01:30)
[2018-01-04] MEDS ORDERED: PT OWN MED DRAWER 7, Y5N ONE (08:15)
[2018-01-04] MEDS: VITAMINS A AND D TOPICAL OINTMENT 60 GM TUBE TP SCH ×2 (09:17→21:23)
[2018-01-04] MEDS: buPROPion HCL 75 MG TABLET PO SCH (09:17)
[2018-01-04] MEDS: CALCIUM 500MG/VIT-D 200 UNITS COMBO TABLET (FP) PO SCH ×2 (09:17→21:22)
[2018-01-04] MEDS: PRENATAL VITAMINS W/ FOLIC ACID TABLET (FP) PO SCH (09:17)
[2018-01-04] MEDS: ASPIRIN 81 MG CHEWABLE TABLETS PO SCH (09:17)
[2018-01-04] MEDS: RANITIDINE HCL 150 MG TABLET (FP) PO SCH ×2 (09:17→21:22)
[2018-01-04] MEDS: LACTULOSE 20 GM/30 ML UDC (FOR ORAL USE ONLY) PO SCH ×4 (09:18→21:22)
[2018-01-04] MEDS: HYDROCHLOROTHIAZIDE 12.5 MG CAPSULE (FP) PO SCH (09:18)
[2018-01-04] MEDS: amLODIPine BESYLATE 5 MG TABLET (FP) PO SCH ×2 (09:18→21:22)
[2018-01-04] MEDS: LIDOCAINE 5% TOPICAL PATCH TP SCH (09:18)
--- NOTE | 2018-01-04 13:13 | PN ---
[facility] Progress Note Note: Vital Signs Temperature 97.7 F 01/04/18 07:17 Pulse Rate 59 L 01/04/18 08:54 Respiratory Rate 18 01/04/18 07:17 Blood Pressure 104/68 01/04/18 08:54 O2 Sat by Pulse Oximetry (%) PATIENT WITH LBM X 3. PATIENT ON LACTULOSE FOR ELEVATED AMMONIA LEVELS. LEVEL TODAY 74.4. WILL CONTINUE LACTULOSE ORDERED AND REPEAT LEVEL IN 72 HOURS. CONTINUE TO MONITOR CLINICALLY.
[2018-01-04] MEDS: IBUPROFEN 400 MG TABLET (FP) PO PRN (14:07)
[2018-01-04] MEDS: LIDOCAINE PATCH REMOVAL MC SCH (21:22)
[2018-01-04] MEDS: THIAMINE HCL 100 MG TABLET (FP) PO SCH (21:23)
[2018-01-04] MEDS: MELATONIN 5 MG TABLETS PO PRN (21:23)
[2018-01-05] MEDS: hydrOXYzine PAMOATE 50 MG CAPSULE (FP) PO PRN (04:06)
[2018-01-05] MEDS: LIDOCAINE 5% TOPICAL PATCH TP SCH (10:02)
[2018-01-05] MEDS: LACTULOSE 20 GM/30 ML UDC (FOR ORAL USE ONLY) PO SCH ×4 (10:02→21:13)
[2018-01-05] MEDS: ASPIRIN 81 MG CHEWABLE TABLETS PO SCH (10:03)
[2018-01-05] MEDS: CALCIUM 500MG/VIT-D 200 UNITS COMBO TABLET (FP) PO SCH ×2 (10:03→21:13)
[2018-01-05] MEDS: HYDROCHLOROTHIAZIDE 12.5 MG CAPSULE (FP) PO SCH (10:03)
[2018-01-05] MEDS: PRENATAL VITAMINS W/ FOLIC ACID TABLET (FP) PO SCH (10:03)
[2018-01-05] MEDS: buPROPion HCL 75 MG TABLET PO SCH (10:03)
[2018-01-05] MEDS: amLODIPine BESYLATE 5 MG TABLET (FP) PO SCH ×2 (10:03→21:13)
[2018-01-05] MEDS: RANITIDINE HCL 150 MG TABLET (FP) PO SCH ×2 (10:03→21:13)
[2018-01-05] MEDS: VITAMINS A AND D TOPICAL OINTMENT 60 GM TUBE TP SCH ×2 (10:04→21:13)
[2018-01-05] MEDS: IBUPROFEN 400 MG TABLET (FP) PO PRN (14:06)
[2018-01-05] MEDS: THIAMINE HCL 100 MG TABLET (FP) PO SCH (21:13)
[2018-01-05] MEDS: LIDOCAINE PATCH REMOVAL MC SCH (21:13)
[2018-01-06] MEDS: hydrOXYzine PAMOATE 50 MG CAPSULE (FP) PO PRN ×2 (04:16→12:03)
[2018-01-06] MEDS: LIDOCAINE 5% TOPICAL PATCH TP SCH (09:48)
[2018-01-06] MEDS: RANITIDINE HCL 150 MG TABLET (FP) PO SCH ×2 (09:49→21:34)
[2018-01-06] MEDS: LACTULOSE 20 GM/30 ML UDC (FOR ORAL USE ONLY) PO SCH ×4 (09:49→22:20)
[2018-01-06] MEDS: buPROPion HCL 75 MG TABLET PO SCH (09:49)
[2018-01-06] MEDS: amLODIPine BESYLATE 5 MG TABLET (FP) PO SCH ×2 (09:49→21:34)
[2018-01-06] MEDS: CALCIUM 500MG/VIT-D 200 UNITS COMBO TABLET (FP) PO SCH ×2 (09:49→21:34)
[2018-01-06] MEDS: ASPIRIN 81 MG CHEWABLE TABLETS PO SCH (09:49)
[2018-01-06] MEDS: PRENATAL VITAMINS W/ FOLIC ACID TABLET (FP) PO SCH (09:50)
[2018-01-06] MEDS: VITAMINS A AND D TOPICAL OINTMENT 60 GM TUBE TP SCH ×2 (09:50→21:34)
[2018-01-06] MEDS: HYDROCHLOROTHIAZIDE 12.5 MG CAPSULE (FP) PO SCH (09:50)
--- NOTE | 2018-01-06 10:14 | EKG ---
Test Reason : Blood Pressure : / mmHG Vent. Rate : 070 BPM Atrial Rate : 070 BPM P-R Int : 176 ms QRS Dur : 088 ms QT Int : 440 ms P-R-T Axes : 044 005 040 degrees QTc Int : 475 ms NORMAL SINUS RHYTHM NORMAL ECG WHEN COMPARED WITH ECG OF 22-DEC-2017 21:16, NO SIGNIFICANT CHANGE WAS FOUND Confirmed by SHAZIA DILLON MD ([id number]) on 01/06/2018 10:14:31 AM Referred By: Confirmed By:SHAZIA DILLON MD
[2018-01-06 10:44] LABS: EOS % 1.4 % (0-4.5); HEMATOCRIT 33.1 % (32.4-45.2); LYMPH % 35.7 % (8-40); MCH 29.4 pg (25.7-33.7); MCHC 33.1 g/dl (32.0-36.0); MEAN CELL VOLUME 88.7 fl (80-96); MEAN PLT VOLUME 11.2 fl (7.5-11.1); MONO % 13.8 % (3.8-10.2); NEUT % 48.1 % (42.8-82.8); PLATELET COUNT 127 K/MM3 (134-434); RBC 3.73 M/mm3 (3.60-5.2); RDW 19.4 % (11.6-15.6); WHITE BLOOD COUNT 5.3 K/mm3 (4.0-10.0)
[2018-01-06 10:55] LABS: INR 1.43 (0.82-1.09); PROTHROMBIN TIME (PATIENT) 16.2 SEC (9.7-13.0)
[2018-01-06 12:18] LABS: ALBUMIN 2.5 g/dl (3.4-5.0); ANION GAP 5 (8-16); BLOOD UREA NITROGEN 16 mg/dL (7-18); CALCIUM 8.4 mg/dL (8.5-10.1); CHLORIDE 105 mmol/L (98-107); CO2 28 mmol/L (21-32); GLUCOSE,RANDOM 98 mg/dL (74-106); SODIUM 138 mmol/L (136-145)
[2018-01-06 12:22] LABS: ALK PHOS 164 U/L (45-117); CREATININE 0.9 mg/dL (0.55-1.02); SGOT/AST 100 U/L (15-37); SGPT/ALT 91 U/L (12-78); TOT PROT 8.2 g/dl (6.4-8.2)
[2018-01-06] MEDS: THIAMINE HCL 100 MG TABLET (FP) PO SCH (21:34)
[2018-01-06] MEDS: MELATONIN 5 MG TABLETS PO PRN (21:34)
[2018-01-06] MEDS: LIDOCAINE PATCH REMOVAL MC SCH (21:35)
[2018-01-06] MEDS: IBUPROFEN 400 MG TABLET (FP) PO PRN (21:35)
[2018-01-07] MEDS: IBUPROFEN 400 MG TABLET (FP) PO PRN ×2 (06:38→19:09)
[2018-01-07] MEDS: hydrOXYzine PAMOATE 50 MG CAPSULE (FP) PO PRN ×2 (06:39→12:28)
[2018-01-07] MEDS: LIDOCAINE 5% TOPICAL PATCH TP SCH (10:10)
[2018-01-07] MEDS: LACTULOSE 20 GM/30 ML UDC (FOR ORAL USE ONLY) PO SCH ×4 (10:10→21:26)
[2018-01-07] MEDS: CALCIUM 500MG/VIT-D 200 UNITS COMBO TABLET (FP) PO SCH ×2 (10:11→21:24)
[2018-01-07] MEDS: PRENATAL VITAMINS W/ FOLIC ACID TABLET (FP) PO SCH (10:11)
[2018-01-07] MEDS: ASPIRIN 81 MG CHEWABLE TABLETS PO SCH (10:11)
[2018-01-07] MEDS: HYDROCHLOROTHIAZIDE 12.5 MG CAPSULE (FP) PO SCH (10:11)
[2018-01-07] MEDS: amLODIPine BESYLATE 5 MG TABLET (FP) PO SCH ×2 (10:11→21:24)
[2018-01-07] MEDS: RANITIDINE HCL 150 MG TABLET (FP) PO SCH ×2 (10:11→21:24)
[2018-01-07] MEDS: buPROPion HCL 75 MG TABLET PO SCH (10:11)
[2018-01-07] MEDS: VITAMINS A AND D TOPICAL OINTMENT 60 GM TUBE TP SCH ×2 (10:12→21:25)
[2018-01-07] MEDS: THIAMINE HCL 100 MG TABLET (FP) PO SCH (21:24)
[2018-01-07] MEDS: LIDOCAINE PATCH REMOVAL MC SCH (21:25)
[2018-01-08] MEDS: MELATONIN 5 MG TABLETS PO PRN (01:08)
[2018-01-08] MEDS: IBUPROFEN 400 MG TABLET (FP) PO PRN ×2 (01:08→16:58)
[2018-01-08] MEDS ORDERED: PT OWN MED DRAWER 7, Y5N ONE ×2 (08:35→21:07)
[2018-01-08] MEDS: MAG HYDROX/AL HYDROX/SIMETH 30 ML UNIT-DOSE CUP PO PRN (09:36)
[2018-01-08] MEDS: PRENATAL VITAMINS W/ FOLIC ACID TABLET (FP) PO SCH (09:36)
[2018-01-08] MEDS: amLODIPine BESYLATE 5 MG TABLET (FP) PO SCH ×2 (09:37→21:14)
[2018-01-08] MEDS: LACTULOSE 20 GM/30 ML UDC (FOR ORAL USE ONLY) PO SCH ×4 (09:37→21:16)
[2018-01-08] MEDS: ASPIRIN 81 MG CHEWABLE TABLETS PO SCH (09:37)
[2018-01-08] MEDS: hydrOXYzine PAMOATE 50 MG CAPSULE (FP) PO PRN ×2 (09:37→15:50)
[2018-01-08] MEDS: HYDROCHLOROTHIAZIDE 12.5 MG CAPSULE (FP) PO SCH (09:37)
[2018-01-08] MEDS: CALCIUM 500MG/VIT-D 200 UNITS COMBO TABLET (FP) PO SCH ×2 (09:37→21:14)
[2018-01-08] MEDS: buPROPion HCL 75 MG TABLET PO SCH (09:37)
[2018-01-08] MEDS: RANITIDINE HCL 150 MG TABLET (FP) PO SCH ×2 (09:37→21:14)
[2018-01-08] MEDS: LIDOCAINE 5% TOPICAL PATCH TP SCH (09:39)
[2018-01-08] MEDS: VITAMINS A AND D TOPICAL OINTMENT 60 GM TUBE TP SCH ×2 (09:42→21:15)
[2018-01-08] MEDS ORDERED: hydrOXYzine PAMOATE 50 MG CAPSULE (FP) PO PRN (13:09)
--- NOTE | 2018-01-08 13:17 | PN ---
Psychiatric Progress Note Vital Signs: Vital Signs Period Temp Pulse Resp BP Sys/Craig Pulse Ox Last 24 Hr 97.8 F 71-79 16-18 113-119/71-74 Date of Session: 01/08/18 Chief Complaint:: ANXIETY AND INSOMNIA HPI: Patient reports not sleeping well, reports anxiety at lupe time as weel. Patient reports goof resp[onse to Trazodone 100mg pop qhs and Melatonin Current Medications: Active Medications Generic Name Dose Route Start Last Admin Trade Name Freq PRN Reason Stop Dose Admin Al Hydroxide/Mg Hydroxide 30 ml 12/26/17 13:23 01/08/18 09:36 Mylanta Oral Suspension - PO 30 ml Q6H PRN Administration DYSPEPSIA Albuterol Sulfate 2 puff 12/26/17 13:24 Ventolin Hfa Inhaler - IH Q4H PRN ASTHMA Albuterol/Ipratropium 1 amp 12/26/17 13:25 Duoneb - NEB Q6H PRN SHORTNESS OF BREATH Amlodipine Besylate 5 mg 01/01/18 15:03 01/08/18 09:37 Norvasc - PO 5 mg BID ROSALIO Administration Aspirin 81 mg 12/27/17 10:00 01/08/18 09:37 Asa - PO 81 mg DAILY ROSALIO Administration Bupropion HCl 75 mg 12/27/17 10:00 01/08/18 09:37 Wellbutrin - PO 75 mg DAILY ROSALIO Administration Calcium Carbonate/Cholecalciferol 1 tab 12/26/17 22:00 01/08/18 09:37 Os-Siddhartha 500+D - PO 1 tab BID ROSALIO Administration Colloidal Oatmeal 1 applic 12/28/17 14:25 12/28/17 14:47 Aveeno Soap - TP 1 bar DAILY PRN Administration HYGEINE Eucalyptus/Menthol/Phenol/Sorbitol 1 each 12/26/17 13:23 Cepastat Lozenge - MM Q4H PRN SORE THROAT Guaifenesin 10 ml 12/26/17 13:23 Robitussin Dm - PO Q6H PRN COUGH Hydrochlorothiazide 12.5 mg 12/27/17 10:00 01/08/18 09:37 Hctz - PO 12.5 mg DAILY ROSALIO Administration Hydroxyzine Pamoate 50 mg 12/26/17 13:23 01/08/18 09:37 Vistaril - PO 50 mg Q4H PRN Administration AGITATION Ibuprofen 400 mg 12/26/17 13:23 01/08/18 01:08 Motrin - PO 400 mg Q6H PRN Administration Pain Level 4-6 Lactulose 20 gm 12/26/17 14:00 01/08/18 09:37 Cephulac (Oral Use) PO 20 gm QID ROSALIO Administration Lidocaine 1 patch 12/28/17 14:45 01/08/18 09:39 Lidoderm Patch - TP 1 patch DAILY ROSALIO Administration Loperamide HCl 4 mg 12/26/17 13:23 01/01/18 14:44 Imodium - PO 4 mg Q6H PRN Administration DIARRHEA Melatonin 5 mg 12/26/17 22:00 01/08/18 01:08 Melatonin PO 5 mg HS PRN Administration INSOMNIA Melatonin 10 mg 01/08/18 22:00 Melatonin PO HS ROSALIO Miscellaneous 1 each 12/28/17 22:00 01/07/18 21:25 Lidoderm Patch Removal MC 1 each DAILY@2200 ROSALIO Administration Multivit/Folic Acid/Iron 1 tab 12/27/17 10:00 01/08/18 09:36 Vitamins (Sjr) - PO 1 tab DAILY ROSALIO Administration Pseudoephedrine/Triprolidine 1 combo 12/26/17 13:23 Actifed - PO TID PRN NASAL CONGESTION Ranitidine HCl 150 mg 12/26/17 22:00 01/08/18 09:37 Zantac - PO 150 mg BID ROSALIO Administration Thiamine HCl 100 mg 12/26/17 22:00 01/07/18 21:24 Vitamin B1 - PO 100 mg HS ROSALIO Administration Tizanidine HCl 2 mg 12/28/17 14:25 01/04/18 01:30 Tizanidine Hcl PO 2 mg Q8H PRN Administration MUSCLE SPASMS Trazodone HCl 100 mg 01/08/18 22:00 Desyrel - PO HS ROSALIO Vitamin A/Vitamin D 1 applic 12/26/17 13:30 01/08/18 09:42 Vitamin A & D Top Oint - TP Not Given BID [facility] Medication(s) Change(s): Trazodone 100mg po qhs. Melatonine 10mg pop qhs. Vistaril 50mg po q4 prn for agitation Mental Status Exam - Mental Status Exam Alert and Oriented to: Person Cognitive Function: Fair Patient Appearance: Well Groomed Mood: Anxious Affect: Appropriate Patient Behavior: Appropriate Speech Pattern: Delayed Voice Loudness: Mildly Soft/Quiet Thought Process: Goal Oriented Thought Disorder: Being Controlled Hallucinations: Denies Suicidal Ideation: Denies Homicidal Ideation: Denies Insight/Judgement: Fair Sleep: Difficulty falling asleep Appetite: Fair Muscle strength/Tone: Mild Hypertonicity Gait/Station: Deferred Additional Comments: Trazodone 100mg po qhs. Melatonine 10mg pop qhs. Vistaril 50mg po q4 prn for agitation Psychiatric Treatment Plan - Problem List (1) Alcohol dependence Current Visit: Yes (2) Substance induced mood disorder Current Visit: Yes (3) Bipolar disorder Current Visit: Yes Comment: As per existing records. (4) Essential hypertension Current Visit: Yes (5) Hepatitis C carrier Current Visit: Yes (6) Nicotine dependence Current Visit: Yes Qualifiers: (7) Alcohol dependence with uncomplicated withdrawal Current Visit: No (8) Alcohol withdrawal Current Visit: No Qualifiers: Complication of substance-induced condition: with unspecified complication Qualified Code(s): F10.239 - Alcohol dependence with withdrawal, unspecified (9) Pancreatitis Current Visit: No Qualifiers: Pancreatitis type: unspecified pancreatitis type Acute pancreatitis complication: unspecified (10) Asthma Current Visit: No Qualifiers: Asthma severity: moderate (11) Use of cane as ambulatory aid Current Visit: No Initial treatment plan: Trazodone 100mg po qhs. Melatonine 10mg pop qhs. Vistaril 50mg po q4 prn for agitation
[2018-01-08] MEDS: THIAMINE HCL 100 MG TABLET (FP) PO SCH (21:14)
[2018-01-08] MEDS: MELATONIN 5 MG TABLETS PO SCH (21:14)
[2018-01-08] MEDS: LIDOCAINE PATCH REMOVAL MC SCH (21:15)
[2018-01-08] MEDS: traZODone HCL 100 MG TABLET (FP) PO SCH (21:16)
[2018-01-09] MEDS: ASPIRIN 81 MG CHEWABLE TABLETS PO SCH (10:03)
[2018-01-09] MEDS: LACTULOSE 20 GM/30 ML UDC (FOR ORAL USE ONLY) PO SCH ×4 (10:03→21:14)
[2018-01-09] MEDS: PRENATAL VITAMINS W/ FOLIC ACID TABLET (FP) PO SCH (10:04)
[2018-01-09] MEDS: buPROPion HCL 75 MG TABLET PO SCH (10:04)
[2018-01-09] MEDS: CALCIUM 500MG/VIT-D 200 UNITS COMBO TABLET (FP) PO SCH ×2 (10:04→21:14)
[2018-01-09] MEDS: HYDROCHLOROTHIAZIDE 12.5 MG CAPSULE (FP) PO SCH (10:04)
[2018-01-09] MEDS: amLODIPine BESYLATE 5 MG TABLET (FP) PO SCH ×2 (10:04→21:14)
[2018-01-09] MEDS: LIDOCAINE 5% TOPICAL PATCH TP SCH (10:04)
[2018-01-09] MEDS: RANITIDINE HCL 150 MG TABLET (FP) PO SCH ×2 (10:04→21:14)
[2018-01-09] MEDS: VITAMINS A AND D TOPICAL OINTMENT 60 GM TUBE TP SCH ×2 (10:05→21:15)
[2018-01-09] MEDS: hydrOXYzine PAMOATE 50 MG CAPSULE (FP) PO PRN (14:17)
[2018-01-09] MEDS: MAG HYDROX/AL HYDROX/SIMETH 30 ML UNIT-DOSE CUP PO PRN (16:30)
[2018-01-09] MEDS: MELATONIN 5 MG TABLETS PO SCH (21:14)
[2018-01-09] MEDS: traZODone HCL 100 MG TABLET (FP) PO SCH (21:14)
[2018-01-09] MEDS: LIDOCAINE PATCH REMOVAL MC SCH (21:15)
[2018-01-09] MEDS: THIAMINE HCL 100 MG TABLET (FP) PO SCH (21:15)
[2018-01-10] MEDS: LACTULOSE 20 GM/30 ML UDC (FOR ORAL USE ONLY) PO SCH ×4 (10:07→21:22)
[2018-01-10] MEDS: LIDOCAINE 5% TOPICAL PATCH TP SCH (10:07)
[2018-01-10] MEDS: amLODIPine BESYLATE 5 MG TABLET (FP) PO SCH ×2 (10:08→21:20)
[2018-01-10] MEDS: CALCIUM 500MG/VIT-D 200 UNITS COMBO TABLET (FP) PO SCH ×2 (10:08→21:20)
[2018-01-10] MEDS: ASPIRIN 81 MG CHEWABLE TABLETS PO SCH (10:08)
[2018-01-10] MEDS: RANITIDINE HCL 150 MG TABLET (FP) PO SCH ×2 (10:08→21:20)
[2018-01-10] MEDS: buPROPion HCL 75 MG TABLET PO SCH (10:08)
[2018-01-10] MEDS: PRENATAL VITAMINS W/ FOLIC ACID TABLET (FP) PO SCH (10:08)
[2018-01-10] MEDS: HYDROCHLOROTHIAZIDE 12.5 MG CAPSULE (FP) PO SCH (10:08)
[2018-01-10] MEDS: VITAMINS A AND D TOPICAL OINTMENT 60 GM TUBE TP SCH ×2 (10:09→21:21)
[2018-01-10] MEDS: hydrOXYzine PAMOATE 50 MG CAPSULE (FP) PO PRN (15:31)
--- NOTE | 2018-01-10 16:33 | PN ---
Psychiatric Progress Note Vital Signs: Vital Signs Period Temp Pulse Resp BP Sys/Craig Pulse Ox Last 24 Hr 98.2 F 83-85 16-18 123-123/75-79 Date of Session: 01/10/18 Chief Complaint:: I need Campral, i am still having craving for alcohol.' HPI: Patient addressed alcohol and opioid dependence comorbid with Bipolar disorder. ROS: Multiple medical problems. Current Medications: Active Medications Generic Name Dose Route Start Last Admin Trade Name Freq PRN Reason Stop Dose Admin Acamprosate 666 mg 01/10/18 22:00 Campral - PO TID ROSALIO Al Hydroxide/Mg Hydroxide 30 ml 12/26/17 13:23 01/09/18 16:30 Mylanta Oral Suspension - PO 30 ml Q6H PRN Administration DYSPEPSIA Albuterol Sulfate 2 puff 12/26/17 13:24 Ventolin Hfa Inhaler - IH Q4H PRN ASTHMA Albuterol/Ipratropium 1 amp 12/26/17 13:25 Duoneb - NEB Q6H PRN SHORTNESS OF BREATH Amlodipine Besylate 5 mg 01/01/18 15:03 01/10/18 10:08 Norvasc - PO 5 mg BID ROSALIO Administration Aspirin 81 mg 12/27/17 10:00 01/10/18 10:08 Asa - PO 81 mg DAILY ROSALIO Administration Bupropion HCl 75 mg 12/27/17 10:00 01/10/18 10:08 Wellbutrin - PO 75 mg DAILY ROSALIO Administration Calcium Carbonate/Cholecalciferol 1 tab 12/26/17 22:00 01/10/18 10:08 Os-Siddhartha 500+D - PO 1 tab BID ROSALIO Administration Colloidal Oatmeal 1 applic 12/28/17 14:25 12/28/17 14:47 Aveeno Soap - TP 1 bar DAILY PRN Administration HYGEINE Eucalyptus/Menthol/Phenol/Sorbitol 1 each 12/26/17 13:23 Cepastat Lozenge - MM Q4H PRN SORE THROAT Guaifenesin 10 ml 12/26/17 13:23 Robitussin Dm - PO Q6H PRN COUGH Hydrochlorothiazide 12.5 mg 12/27/17 10:00 01/10/18 10:08 Hctz - PO 12.5 mg DAILY ROSALIO Administration Hydroxyzine Pamoate 50 mg 12/26/17 13:23 01/10/18 15:31 Vistaril - PO 50 mg Q4H PRN Administration AGITATION Ibuprofen 400 mg 12/26/17 13:23 01/08/18 16:58 Motrin - PO 400 mg Q6H PRN Administration Pain Level 4-6 Lactulose 20 gm 12/26/17 14:00 01/10/18 14:00 Cephulac (Oral Use) PO 20 gm QID ROSALIO Administration Lidocaine 1 patch 12/28/17 14:45 01/10/18 10:07 Lidoderm Patch - TP 1 patch DAILY ROSALIO Administration Loperamide HCl 4 mg 12/26/17 13:23 01/01/18 14:44 Imodium - PO 4 mg Q6H PRN Administration DIARRHEA Melatonin 10 mg 01/08/18 22:00 01/09/18 21:14 Melatonin PO 10 mg HS ROSALIO Administration Miscellaneous 1 each 12/28/17 22:00 01/09/18 21:15 Lidoderm Patch Removal MC 1 each DAILY@2200 ROSALIO Administration Multivit/Folic Acid/Iron 1 tab 12/27/17 10:00 01/10/18 10:08 Vitamins (Sjr) - PO 1 tab DAILY ROSALIO Administration Pseudoephedrine/Triprolidine 1 combo 12/26/17 13:23 Actifed - PO TID PRN NASAL CONGESTION Ranitidine HCl 150 mg 12/26/17 22:00 01/10/18 10:08 Zantac - PO 150 mg BID ROSALIO Administration Thiamine HCl 100 mg 12/26/17 22:00 01/09/18 21:15 Vitamin B1 - PO 100 mg HS ROSALIO Administration Tizanidine HCl 2 mg 12/28/17 14:25 01/04/18 01:30 Tizanidine Hcl PO 2 mg Q8H PRN Administration MUSCLE SPASMS Trazodone HCl 100 mg 01/08/18 22:00 01/09/18 21:14 Desyrel - PO 100 mg HS ROSALIO Administration Vitamin A/Vitamin D 1 applic 12/26/17 13:30 01/10/18 10:09 Vitamin A & D Top Oint - TP Not Given BID ROSALIO Current Side Effect: No Lab tests ordered: No Lab tests reviewed: Yes Provider note:: Chart as revuewed,attending admission notes appreciated.Treatment plan including medications management has been discussed with the patient.She reports still having craving for alcohol.Properties of Campral has been discussed with the patient including side effects,benefits and dose adjustment. Campral 333 mg po 2 tab tid will be started today. Supportive therapy provided. Total face to face time:: 25 Mental Status Exam - Mental Status Exam Alert and Oriented to: Time, Place, Person Cognitive Function: Grossly Intact Patient Appearance: Unkempt Mood: Sad Affect: Mood Congruent, Labile Patient Behavior: Cooperative Speech Pattern: Clear Voice Loudness: Normal Thought Process: Goal Oriented Thought Disorder: Not Present Hallucinations: Denies Suicidal Ideation: Denies Homicidal Ideation: Denies Insight/Judgement: Fair Sleep: Fair Appetite: Fair Muscle strength/Tone: Normal Gait/Station: Normal Psychiatric Treatment Plan - Problem List (1) Alcohol dependence Current Visit: Yes (2) Opioid dependence Current Visit: Yes (3) Bipolar disorder Current Visit: Yes Comment: As per existing records. (4) Cirrhosis of liver Current Visit: Yes
[2018-01-10] MEDS: traZODone HCL 100 MG TABLET (FP) PO SCH (21:20)
[2018-01-10] MEDS: THIAMINE HCL 100 MG TABLET (FP) PO SCH (21:20)
[2018-01-10] MEDS: LIDOCAINE PATCH REMOVAL MC SCH (21:21)
[2018-01-10] MEDS: MELATONIN 5 MG TABLETS PO SCH (21:21)
[2018-01-10] MEDS: ACAMPROSATE CALCIUM 333 MG TABLET.DR PO SCH (21:22)
[2018-01-11] MEDS: ACAMPROSATE CALCIUM 333 MG TABLET.DR PO SCH ×3 (06:23→21:34)
[2018-01-11] MEDS ORDERED: PT OWN MED DRAWER 7, Y5N ONE (08:19)
[2018-01-11] MEDS: LACTULOSE 20 GM/30 ML UDC (FOR ORAL USE ONLY) PO SCH ×4 (09:56→21:35)
[2018-01-11] MEDS: LIDOCAINE 5% TOPICAL PATCH TP SCH (09:56)
[2018-01-11] MEDS: RANITIDINE HCL 150 MG TABLET (FP) PO SCH ×2 (09:57→21:34)
[2018-01-11] MEDS: HYDROCHLOROTHIAZIDE 12.5 MG CAPSULE (FP) PO SCH (09:57)
[2018-01-11] MEDS: buPROPion HCL 75 MG TABLET PO SCH (09:57)
[2018-01-11] MEDS: amLODIPine BESYLATE 5 MG TABLET (FP) PO SCH ×2 (09:57→21:34)
[2018-01-11] MEDS: CALCIUM 500MG/VIT-D 200 UNITS COMBO TABLET (FP) PO SCH ×2 (09:57→21:34)
[2018-01-11] MEDS: PRENATAL VITAMINS W/ FOLIC ACID TABLET (FP) PO SCH (09:57)
[2018-01-11] MEDS: ASPIRIN 81 MG CHEWABLE TABLETS PO SCH (09:57)
[2018-01-11] MEDS: VITAMINS A AND D TOPICAL OINTMENT 60 GM TUBE TP SCH ×2 (09:58→21:35)
--- NOTE | 2018-01-11 13:43 | PN ---
[facility] Progress Note Note: Vital Signs Temperature 98.3 F 01/11/18 07:10 Pulse Rate 80 01/11/18 09:15 Respiratory Rate 18 01/11/18 07:10 Blood Pressure 114/71 01/11/18 09:15 O2 Sat by Pulse Oximetry (%) Laboratory 01/06/18 01/06/18 01/06/18 07:30 07:30 07:30 WBC 5.3 K/mm3 K/mm3 (4.0-10.0) RBC 3.73 M/mm3 M/mm3 (3.60-5.2) Hgb 11.0 GM/dL GM/dL (10.7-15.3) Hct 33.1 % % (32.4-45.2) MCV 88.7 fl fl (80-96) MCH 29.4 pg pg (25.7-33.7) MCHC 33.1 g/dl g/dl (32.0-36.0) RDW 19.4 % H % (11.6-15.6) Plt Count 127 K/MM3 L D K/MM3 (134-434) MPV 11.2 fl H fl (7.5-11.1) Absolute Neuts (auto) 2.5 # # Neutrophils % 48.1 % % (42.8-82.8) Lymphocytes % 35.7 % % (8-40) Monocytes % 13.8 % H % (3.8-10.2) Eosinophils % 1.4 % % (0-4.5) Basophils % 1.0 % % (0-2.0) Nucleated RBC % 0 % % (0-0) PT with INR 16.20 SEC H SEC (9.7-13.0) INR 1.43 H (0.82-1.09) Sodium Potassium Chloride Carbon Dioxide Anion Gap BUN Creatinine Creat Clearance w eGFR Random Glucose Calcium Total Bilirubin AST ALT Alkaline Phosphatase Ammonia 70.94 umol/L H umol/L (11-32) Total Protein Albumin 01/06/18 01/11/18 08:00 08:40 WBC RBC Hgb Hct MCV MCH MCHC RDW Plt Count MPV Absolute Neuts (auto) Neutrophils % Lymphocytes % Monocytes % Eosinophils % Basophils % Nucleated RBC % PT with INR INR Sodium 138 mmol/L mmol/L (136-145) Potassium 4.0 mmol/L mmol/L (3.5-5.1) Chloride 105 mmol/L mmol/L (98-107) Carbon Dioxide 28 mmol/L mmol/L (21-32) Anion Gap 5 L (8-16) BUN 16 mg/dL mg/dL (7-18) Creatinine 0.9 mg/dL mg/dL (0.55-1.02) Creat Clearance w eGFR > 60 (>60) Random Glucose 98 mg/dL mg/dL (74-106) Calcium 8.4 mg/dL L mg/dL (8.5-10.1) Total Bilirubin 1.0 mg/dL mg/dL (0.2-1.0) AST 100 U/L H U/L (15-37) ALT 91 U/L H U/L (12-78) Alkaline Phosphatase 164 U/L H D U/L (45-117) Ammonia 56.74 umol/L H umol/L (11-32) Total Protein 8.2 g/dl g/dl (6.4-8.2) Albumin 2.5 g/dl L g/dl (3.4-5.0) Ammonia levels improve from 70 to 56.74. Repeat Ammonia on 01/15/18. Continue to lactulose. continue to monitor
[2018-01-11] MEDS: IBUPROFEN 400 MG TABLET (FP) PO PRN (19:23)
[2018-01-11] MEDS: traZODone HCL 100 MG TABLET (FP) PO SCH (21:34)
[2018-01-11] MEDS: MELATONIN 5 MG TABLETS PO SCH (21:35)
[2018-01-11] MEDS: LIDOCAINE PATCH REMOVAL MC SCH (21:35)
[2018-01-11] MEDS: THIAMINE HCL 100 MG TABLET (FP) PO SCH (21:35)
[2018-01-12] MEDS: ACAMPROSATE CALCIUM 333 MG TABLET.DR PO SCH ×2 (06:29→23:05)
[2018-01-12 07:14] VITALS: TEMP 97.7
[2018-01-12] MEDS ORDERED: PT OWN MED DRAWER 7, Y5N ONE (08:39)
[2018-01-12 09:09] VITALS: BP 124/76; PULSE 85
[2018-01-12] MEDS: HYDROCHLOROTHIAZIDE 12.5 MG CAPSULE (FP) PO SCH (10:23)
[2018-01-12] MEDS: CALCIUM 500MG/VIT-D 200 UNITS COMBO TABLET (FP) PO SCH ×2 (10:23→23:07)
[2018-01-12] MEDS: LACTULOSE 20 GM/30 ML UDC (FOR ORAL USE ONLY) PO SCH ×3 (10:23→23:06)
[2018-01-12] MEDS: RANITIDINE HCL 150 MG TABLET (FP) PO SCH ×2 (10:23→23:07)
[2018-01-12] MEDS: ASPIRIN 81 MG CHEWABLE TABLETS PO SCH (10:23)
[2018-01-12] MEDS: buPROPion HCL 75 MG TABLET PO SCH (10:23)
[2018-01-12] MEDS: amLODIPine BESYLATE 5 MG TABLET (FP) PO SCH ×2 (10:23→23:07)
[2018-01-12] MEDS: COLLOIDAL OATMEAL 1 BAR EACH TP PRN (10:23)
[2018-01-12] MEDS: PRENATAL VITAMINS W/ FOLIC ACID TABLET (FP) PO SCH (10:23)
[2018-01-12] MEDS: LIDOCAINE 5% TOPICAL PATCH TP SCH (10:24)
[2018-01-12] MEDS: VITAMINS A AND D TOPICAL OINTMENT 60 GM TUBE TP SCH ×2 (10:24→23:07)
--- NOTE | 2018-01-12 12:42 | PN ---
[facility] Progress Note Note: Patient c/o of abdominal pain x 2 days, patient reports pain is worse today. Pain started on right upper and lower quadrant radiating to her back. Reports onset of chills since last night, poor appetite, bilateral hands tremors and lethargy. Patient denies CP, SOB, paresthesia or changes in bowel habits. Vital Signs Temperature 97.7 F 01/12/18 07:13 Pulse Rate 85 01/12/18 09:09 Respiratory Rate 18 01/12/18 07:13 Blood Pressure 124/76 01/12/18 09:09 O2 Sat by Pulse Oximetry (%) Laboratory Last Values WBC 5.3 K/mm3 (4.0-10.0) 01/06/18 07:30 RBC 3.73 M/mm3 (3.60-5.2) 01/06/18 07:30 Hgb 11.0 GM/dL (10.7-15.3) 01/06/18 07:30 Hct 33.1 % (32.4-45.2) 01/06/18 07:30 MCV 88.7 fl (80-96) 01/06/18 07:30 MCH 29.4 pg (25.7-33.7) 01/06/18 07:30 MCHC 33.1 g/dl (32.0-36.0) 01/06/18 07:30 RDW 19.4 % (11.6-15.6) H 01/06/18 07:30 Plt Count 127 K/MM3 (134-434) L D 01/06/18 07:30 MPV 11.2 fl (7.5-11.1) H 01/06/18 07:30 Absolute Neuts (auto) 2.5 # 01/06/18 07:30 Neutrophils % 48.1 % (42.8-82.8) 01/06/18 07:30 Lymphocytes % 35.7 % (8-40) 01/06/18 07:30 Monocytes % 13.8 % (3.8-10.2) H 01/06/18 07:30 Eosinophils % 1.4 % (0-4.5) 01/06/18 07:30 Basophils % 1.0 % (0-2.0) 01/06/18 07:30 Nucleated RBC % 0 % (0-0) 01/06/18 07:30 PT with INR 16.20 SEC (9.7-13.0) H 01/06/18 07:30 INR 1.43 (0.82-1.09) H 01/06/18 07:30 Sodium 138 mmol/L (136-145) 01/06/18 08:00 Potassium 4.0 mmol/L (3.5-5.1) 01/06/18 08:00 Chloride 105 mmol/L (98-107) 01/06/18 08:00 Carbon Dioxide 28 mmol/L (21-32) 01/06/18 08:00 Anion Gap 5 (8-16) L 01/06/18 08:00 BUN 16 mg/dL (7-18) 01/06/18 08:00 Creatinine 0.9 mg/dL (0.55-1.02) 01/06/18 08:00 Creat Clearance w eGFR > 60 (>60) 01/06/18 08:00 Random Glucose 98 mg/dL (74-106) 01/06/18 08:00 Hemoglobin A1c % 4.7 % (4.8-6.0) L 01/02/18 08:30 Calcium 8.4 mg/dL (8.5-10.1) L 01/06/18 08:00 Total Bilirubin 1.0 mg/dL (0.2-1.0) 01/06/18 08:00 AST 100 U/L (15-37) H 01/06/18 08:00 ALT 91 U/L (12-78) H 01/06/18 08:00 Alkaline Phosphatase 164 U/L (45-117) H D 01/06/18 08:00 Ammonia 56.74 umol/L (11-32) H 01/11/18 08:40 Total Protein 8.2 g/dl (6.4-8.2) 01/06/18 08:00 Albumin 2.5 g/dl (3.4-5.0) L 01/06/18 08:00 Total LDL Cholesterol 74 mg/dL (5-100) 01/02/18 08:30 A/P patient AOx3, mild distress, tearful and anxious no adventitious breath sounds no JVD skin intact no edema or erythema + tremors b/l upper extremities + RUQ and RLQ tenderness BS x 4 - Abdominal pain Plan: patient to be transfer to [facility] via [facility] for further evaluation patient endorse to Dr. Veras.
[2018-01-12] MEDS: traZODone HCL 100 MG TABLET (FP) PO SCH (23:06)
[2018-01-12] MEDS: LIDOCAINE PATCH REMOVAL MC SCH (23:06)
[2018-01-12] MEDS: MELATONIN 5 MG TABLETS PO SCH (23:06)
[2018-01-12] MEDS: THIAMINE HCL 100 MG TABLET (FP) PO SCH (23:07)
--- NOTE | 2018-01-15 14:31 | PN ---
HC Provider Note Provider Note: This patient has been identified as high risk through the attribution process from the PPS. SYSTEMS DEVELOPMENT CONSULTANT followed up on the A1C and LDL-C at the request of [facility] Attache BRUCE SINGLETARY for the purposes of outpatient follow up since the patient has left inpatient. This was done in consultation with [facility] Attache BRUCE Cadet.
== END 2018-01-12 23:25 | disposition short-term general hospital (02) | DRG 772 ==
LOC: YASAS 13:09 → Y3E 13:10
PROVIDERS: ADMIT Psychiatry & Neurology Psychiatry; ATTEND Psychiatry & Neurology Psychiatry
PROC: HZ42ZZZ Group Counseling for Substance Abuse Treatment, Cognitive-Behavioral (ICD-10-PCS; principal; 2017-12-26)
DX: F11.20 Opioid dependence, uncomplicated (principal); F10.20 Alcohol dependence, uncomplicated; F17.210 Nicotine dependence, cigarettes, uncomplicated; F31.9 Bipolar disorder, unspecified; F19.24 Other psychoactive substance dependence with psychoactive substance-induced mood disorder; B18.2 Chronic viral hepatitis C; I25.10 Atherosclerotic heart disease of native coronary artery without angina pectoris; I25.2 Old myocardial infarction; I10 Essential (primary) hypertension; K85.90 Acute pancreatitis without necrosis or infection, unspecified; K21.9 Gastro-esophageal reflux disease without esophagitis; G47.00 Insomnia, unspecified; J45.909 Unspecified asthma, uncomplicated; R60.0 Localized edema; L85.3 Xerosis cutis; M54.5 Low back pain; G89.29 Other chronic pain; R26.89 Other abnormalities of gait and mobility; Z99.89 Dependence on other enabling machines and devices; Z91.14 Patient's other noncompliance with medication regimen
CPT/HCPCS: 36415; 80053; 82140; 83036; 83721; 85025; 85610; 93005; 93010

== ENCOUNTER 2018-01-12 13:53 | Observation (INO) | payer OTHER ==
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
[2018-01-12] MEDS ORDERED: SODIUM CHLORIDE 1,000 ML IV SCH (14:45)
[2018-01-12 16:36] LABS: BASO % 0.9 % (0-2.0); EOS % 1.9 % (0-4.5); HEMATOCRIT 34.6 % (32.4-45.2); HEMOGLOBIN 11.5 GM/dL (10.7-15.3); LYMPH % 28.2 % (8-40); MCHC 33.3 g/dl (32.0-36.0); MEAN CELL VOLUME 87.3 fl (80-96); MEAN PLT VOLUME 10.6 fl (7.5-11.1); MONO % 12.7 % (3.8-10.2); NEUT % 56.3 % (42.8-82.8); PLATELET COUNT 143 K/MM3 (134-434); RBC 3.96 M/mm3 (3.60-5.2); RDW 18.3 % (11.6-15.6); WHITE BLOOD COUNT 6.4 K/mm3 (4.0-10.0)
[2018-01-12 18:07] LABS: ALBUMIN 2.8 g/dl (3.4-5.0); ALK PHOS 146 U/L (45-117); ANION GAP 7 (8-16); BILIRUBIN,TOTAL 0.7 mg/dL (0.2-1.0); BLOOD UREA NITROGEN 12 mg/dL (7-18); CALCIUM 8.6 mg/dL (8.5-10.1); CHLORIDE 107 mmol/L (98-107); CO2 26 mmol/L (21-32); CREATININE 0.9 mg/dL (0.55-1.02); GLUCOSE,RANDOM 89 mg/dL (74-106); POTASSIUM 3.7 mmol/L (3.5-5.1); SGOT/AST 76 U/L (15-37); SGPT/ALT 67 U/L (12-78); SODIUM 140 mmol/L (136-145); TOT PROT 9.1 g/dl (6.4-8.2)
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
[2018-01-12] MEDS ORDERED: ALBUTEROL SO4 8 GM HFA INHALER IH PRN (23:03)
--- NOTE | 2018-01-12 23:11 | HP ---
Admitting History and Physical - Primary Care Physician PCP: None - Admission Chief Complaint: Abd pain History of Present Illness: 62 yo h/o cirrhosis, asthma, copd, HTN, hepatitis c, alcohol and heroin dependence s/p detox and rehab sent from [facility] for abd pain x 2 days. The pain is located in RUQ, radiates to the back, sharp, constant, 9/10, a/w daily watery diarrhea, no aggravating or alleviating factors. Pt stated she has not eaten anything for 2 days. Denies fever, chills, sick contact, shortness of breath, urinary or bowel sx. History Source: Patient Limitations to Obtaining History: No Limitations - Past Medical History Cardiovascular: Yes: HTN Pulmonary: Yes: Asthma, COPD Hepatobiliary: Yes: Cirrhosis, Hepatitis C ...LMP: 07/10/06 - Past Surgical History Past Surgical History: Yes: Cholecystectomy - Smoking History Smoking history: Unknown if ever smoked Have you smoked in the past 12 months: Yes Aproximately how many cigarettes per day: 0 If you are a former smoker, when did you quit?: MOPNTHS AGO - Alcohol/Substance Use Hx Alcohol Use: Yes (1 pint of vodka daily) History of Substance Use: reports: Heroin - Social History History of Recent Travel: No Home Medications - Allergies Allergies/Adverse Reactions: Allergies Allergy/AdvReac Type Severity Reaction Status Date / Time No Known Allergies Allergy Verified 01/12/18 14:00 - Home Medications Home Medications: Ambulatory Orders Quetiapine Fumarate [Seroquel -] 100 mg PO HS 09/25/15 Zolpidem Tartrate [Ambien] 10 mg PO HS 12/16/15 Bupropion HCl [Wellbutrin -] 75 mg PO DAILY #30 tablet 01/04/16 Thiamine HCl [Vitamin B1 -] 100 mg PO DAILY #30 tablet 03/16/17 Albuterol Sulfate Inhaler - [Ventolin HFA Inhaler -] 2 puff IH Q4H PRN #1 inhaler 04/26/17 Amlodipine Besylate [Norvasc -] 5 mg PO BID #60 tablet 04/26/17 Aspirin [ASA -] 81 mg PO DAILY #30 tab.chew 04/26/17 Calcium 500Mg/Vit-D 200 Units [Os-Siddhartha 500+D -] 1 tab PO BID #60 tab 04/26/17 Hydrochlorothiazide [Hctz -] 12.5 mg PO DAILY #30 cap 04/26/17 Lactulose (Oral Use) [Cephulac -] 20 gm PO QID 30 Days udc 04/26/17 Ranitidine [Zantac -] 150 mg PO BID #60 tablet 04/26/17 Family Disease History - Family Disease History Family Disease History: Diabetes: Father (), Mother (asthma), CA: Sister , Respiratory: Mother Review of Systems - Review of Systems Constitutional: reports: Loss of Appetite HENT: reports: No Symptoms Neck: reports: No Symptoms Cardiovascular: reports: No Symptoms Respiratory: reports: No Symptoms Gastrointestinal: reports: Abdominal Pain, Diarrhea Musculoskeletal: reports: No Symptoms Integumentary: reports: No Symptoms Neurological: reports: No Symptoms Endocrine: reports: No Symptoms Physical Examination Vital Signs: Vital Signs Temperature 98.4 F 01/12/18 14:00 Pulse Rate 79 01/12/18 14:00 Respiratory Rate 18 01/12/18 14:00 Blood Pressure 113/67 01/12/18 14:00 O2 Sat by Pulse Oximetry (%) 95 01/12/18 14:00 Constitutional: Yes: Poor Hygeine, Other (weak) Eyes: Yes: Conjunctiva Clear, Tearing Neck: Yes: Supple, Trachea Midline Cardiovascular: Yes: Regular Rate and Rhythm, S1, S2. No: Murmur Respiratory: Yes: CTA Bilaterally Gastrointestinal: Yes: Normal Bowel Sounds, Soft, Abdomen, Obese, Tenderness. No: Splenomegaly, Tenderness, Rebound Edema: No Peripheral Pulses WNL: Yes Labs: CBC, BMP 01/12/18 16:20 01/12/18 17:30 Imaging - Results Cat Scan: Report Reviewed, Image Reviewed Assessment/Plan 62 yo F admitted to med-surg for suspected gastroenteritis. Abd pain - CT + for subtle acute or chronic colitis - IVF to maintain hydration Liver cirrhosis - Elevated ammonia level while mental status intact - Start standing lactulose 20mg QID - May resume back to home PRN dose once +bm Diarrhea - will send c.diff - IVF and monitor electrolytes FEN - NS 75cc/hr - normal lytes - regular diet dvt ppx: [facility] Vicente Hsu PGY3 Visit type - Emergency Visit Emergency Visit: Yes ED Registration Date: 01/12/18 Care time: The patient presented to the Emergency Department on the above date and was hospitalized for further evaluation of their emergent condition. - New Patient This patient is new to me today: Yes Date on this admission: 01/14/18 - Critical Care Critical Care patient: No Hospitalist Screening - Colonoscopy Questionnaire Colonoscopy Questionnaire: Colonoscopy Questionnaire - Patient: 50 - 75 years old and never had a screening colonoscopy: Unknown History of colon or rectal polyps, or CA: Unknown History of IBD, Crohn's disease or UC: Unknown History of abdominal radiation therapy as a child: Unknown - Relative: 1 with colon or rectal CA, or polyps at age 60 or younger: Unknown Colon or rectal CA diagnosed at age 45 or younger: Unknown Multiple relatives with colon or rectal CA: Unknown - Outcome: Screening Result: Negative Screen
[2018-01-12] MEDS ORDERED: traZODone HCL 100 MG TABLET (FP) PO ONE (23:52)
[2018-01-12] MEDS: LACTULOSE 20 GM/30 ML UDC (FOR ORAL USE ONLY) PO SCH (23:53)
[2018-01-12] MEDS: SODIUM CHLORIDE 1,000 ML IV SCH (23:53)
[2018-01-13] MEDS ORDERED: ACETAMINOPHEN 325 MG TABLET (FP) PO ONE (00:34)
[2018-01-13] MEDS ORDERED: ACETAMINOPHEN 325 MG TABLET (FP) ONE (00:41)
[2018-01-13] MEDS ORDERED: MORPHINE SULFATE 2 MG/ML VIAL IM PRN (05:30)
--- NOTE | 2018-01-13 05:53 | PN ---
Teaching Attending Note Name of Resident: Vicente Hsu ATTENDING PHYSICIAN STATEMENT I saw and evaluated the patient. I reviewed the resident's note and discussed the case with the resident. I agree with the resident's findings and plan as documented. SUBJECTIVE: OBJECTIVE: ASSESSMENT AND PLAN: 62 yo h/o cirrhosis, asthma, copd, HTN, hepatitis c, alcohol and heroin dependence s/p detox and rehab sent from [facility] for abd pain x 2 days. The pain is located in RUQ, radiates to the back, sharp, constant, 9/10, a/w daily watery diarrhea, no aggravating or alleviating factors. Pt stated she has not eaten anything for 2 days. Denies fever, chills, sick contact, shortness of breath, urinary or bowel sx. 62 yo F admitted to med-surg for suspected gastroenteritis. Abd pain - CT + for subtle acute or chronic colitis Liver cirrhosis - Elevated ammonia level while mental status intact - Start standing lactulose 20mg QID - May resume back to home PRN dose once +bm Diarrhea - will send c.diff - IVF and monitor electrolytes
[2018-01-13 06:57] LABS: ALBUMIN 2.6 g/dl (3.4-5.0); ANION GAP 7 (8-16); BILIRUBIN,DIRECT 0.5 mg/dL (0.0-0.2); BLOOD UREA NITROGEN 11 mg/dL (7-18); CALCIUM 8.4 mg/dL (8.5-10.1); CHLORIDE 106 mmol/L (98-107); CO2 26 mmol/L (21-32); CREATININE 0.8 mg/dL (0.55-1.02); GLUCOSE,RANDOM 85 mg/dL (74-106); MAGNESIUM 1.7 mg/dL (1.8-2.4); PHOSPHOROUS 3.7 mg/dL (2.5-4.9); POTASSIUM 3.7 mmol/L (3.5-5.1); SGOT/AST 65 U/L (15-37); SGPT/ALT 59 U/L (12-78); SODIUM 139 mmol/L (136-145)
[2018-01-13 06:59] LABS: ALK PHOS 117 U/L (45-117); BILIRUBIN,TOTAL 0.9 mg/dL (0.2-1.0); TOT PROT 8.7 g/dl (6.4-8.2)
[2018-01-13 07:10] LABS: INR 1.56 (0.82-1.09); PROTHROMBIN TIME (PATIENT) 17.6 SEC (9.7-13.0)
[2018-01-13 07:13] LABS: ACTIVATED PTT 42.2 SECONDS (25.2-36.5)
[2018-01-13] MEDS ORDERED: MAGNESIUM OXIDE 400 MG TABLET (FP) PO ONE (10:18)
[2018-01-13] MEDS: LACTULOSE 20 GM/30 ML UDC (FOR ORAL USE ONLY) PO SCH ×5 (10:47→21:13)
[2018-01-13] MEDS ORDERED: PT OWN MED DRAWER 7, Y5N ONE (11:20)
[2018-01-13] MEDS: ASPIRIN 81 MG CHEWABLE TABLETS PO SCH (11:22)
[2018-01-13] MEDS: THIAMINE HCL 100 MG TABLET (FP) PO SCH (11:22)
[2018-01-13] MEDS: RANITIDINE HCL 150 MG TABLET (FP) PO SCH ×2 (11:23→21:12)
[2018-01-13] MEDS: HYDROCHLOROTHIAZIDE 12.5 MG CAPSULE (FP) PO SCH (11:23)
[2018-01-13] MEDS: CALCIUM 500MG/VIT-D 200 UNITS COMBO TABLET (FP) PO SCH ×2 (11:23→21:12)
[2018-01-13] MEDS: amLODIPine BESYLATE 5 MG TABLET (FP) PO SCH ×2 (11:23→21:12)
--- NOTE | 2018-01-13 14:44 | PN ---
Progress Note (short form) - Note Progress Note: state abdominal pain is better but has no appetite. was unable to eat breakfast. denies CP, SOB, fever, chills, N/V/C/D. no BM since arrival to the ER Current Medications Generic Name Dose Route Start Last Admin Trade Name Freq PRN Reason Stop Dose Admin Albuterol Sulfate 2 puff 01/12/18 23:03 Ventolin Hfa Inhaler - IH Q4H PRN ASTHMA Amlodipine Besylate 5 mg 01/13/18 10:00 01/13/18 11:23 Norvasc - PO 5 mg BID ROSALIO Administration Aspirin 81 mg 01/13/18 10:00 01/13/18 11:22 Asa - PO 81 mg DAILY ROSALIO Administration Bupropion HCl 75 mg 01/13/18 10:00 Wellbutrin - PO DAILY ROSALIO Calcium Carbonate/Cholecalciferol 1 tab 01/13/18 10:00 01/13/18 11:23 Os-Siddhartha 500+D - PO 1 tab BID ROSALIO Administration Hydrochlorothiazide 12.5 mg 01/13/18 10:00 01/13/18 11:23 Hctz - PO 12.5 mg DAILY ROSALIO Administration Sodium Chloride 1,000 mls @ 75 mls/hr 01/12/18 23:02 01/12/18 23:53 Normal Saline - IV 75 mls/hr ASDIR ROSALIO Administration Lactulose 20 gm 01/12/18 23:15 01/13/18 11:23 Cephulac (Oral Use) PO 20 gm QID ROSALIO Administration Morphine Sulfate 1 mg 01/13/18 05:30 Morphine Sulfate IM Q6H PRN PAIN LEVEL 6-10 Quetiapine Fumarate 100 mg 01/13/18 22:00 Seroquel - PO HS ROSALIO Ranitidine HCl 150 mg 01/13/18 10:00 01/13/18 11:23 Zantac - PO 150 mg BID ROSALIO Administration Thiamine HCl 100 mg 01/13/18 10:00 01/13/18 11:22 Vitamin B1 - PO 100 mg DAILY ROSALIO Administration Zolpidem Tartrate 10 mg 01/13/18 22:00 Ambien - PO HS PRN INSOMNIA Last Vital Signs Temp Pulse Resp BP Pulse Ox 98.4 F 80 18 116/56 98 01/13/18 04:00 01/13/18 04:00 01/13/18 04:00 01/13/18 04:00 01/13/18 04:15 General NAD A&O x3 CV S1 S2 RRR no murmrur/rub/gallop Lungs CTA B/L no wheezing/rales/rhonchi Abdomen RLQ tenderness no rebound or guarding. neg mcburny point. normoactive BS. unable to palpate liver edge Extremities no pedal edema no asterixis CBCD WBC 6.4 K/mm3 (4.0-10.0) 01/12/18 16:20 RBC 3.96 M/mm3 (3.60-5.2) 01/12/18 16:20 Hgb 11.5 GM/dL (10.7-15.3) 01/12/18 16:20 Hct 34.6 % (32.4-45.2) 01/12/18 16:20 MCV 87.3 fl (80-96) 01/12/18 16:20 MCHC 33.3 g/dl (32.0-36.0) 01/12/18 16:20 RDW 18.3 % (11.6-15.6) H 01/12/18 16:20 Plt Count 143 K/MM3 (134-434) 01/12/18 16:20 MPV 10.6 fl (7.5-11.1) 01/12/18 16:20 CMP Sodium 139 mmol/L (136-145) 01/13/18 06:00 Potassium 3.7 mmol/L (3.5-5.1) 01/13/18 06:00 Chloride 106 mmol/L (98-107) 01/13/18 06:00 Carbon Dioxide 26 mmol/L (21-32) 01/13/18 06:00 Anion Gap 7 (8-16) L 01/13/18 06:00 BUN 11 mg/dL (7-18) 01/13/18 06:00 Creatinine 0.8 mg/dL (0.55-1.02) 01/13/18 06:00 Creat Clearance w eGFR > 60 (>60) 01/13/18 06:00 Calcium 8.4 mg/dL (8.5-10.1) L 01/13/18 06:00 Total Bilirubin 0.9 mg/dL (0.2-1.0) 01/13/18 06:00 AST 65 U/L (15-37) H 01/13/18 06:00 ALT 59 U/L (12-78) 01/13/18 06:00 Alkaline Phosphatase 117 U/L (45-117) D 01/13/18 06:00 Total Protein 8.7 g/dl (6.4-8.2) H 01/13/18 06:00 Albumin 2.6 g/dl (3.4-5.0) L 01/13/18 06:00 A/P 62yo F with PMH cirrhosis, HCV, continous ETOH and heroin use that completed detox at [facility] and currently there for rehab presented for abdominal pain x5 days 1. Abdominal pain- possible gastroenteritis. clinically improved. CT scan showing possible acute or chronic R hepatic colitis however no pain in this area , afebrile nad no leukocytosis. would not start abx at this time. no pain. would avoid opiates as decreased clearance due to cirrhosis as well as recently completed detox from heroin use. 2. elevated ammonia- however pt is alert and oriented. no asterxis. 3. Cirrhosis 4. HCV- unclear if patient was treated or not. 5. Continuous polysubstance use- no signs of withdrawal. avoid narcotics. MVI. plan to return to [facility] 6. DVT ppx- EAM 7. clinically stable to return to [facility] but no one is responding from admissions to send patient back. Visit type - Emergency Visit Emergency Visit: Yes ED Registration Date: 01/12/18 Care time: The patient presented to the Emergency Department on the above date and was hospitalized for further evaluation of their emergent condition. - New Patient This patient is new to me today: Yes Date on this admission: 01/13/18 - Critical Care Critical Care patient: No - Discharge Referral Referred to [facility] Med P.C.: No
[2018-01-13] MEDS: buPROPion HCL 75 MG TABLET PO SCH (15:46)
[2018-01-13] MEDS: ZOLPIDEM TARTRATE 5 MG TABLET PO PRN (21:12)
[2018-01-13] MEDS: QUEtiapine FUMARATE 50 MG TABLET PO SCH (21:12)
[2018-01-13 21:18] LABS: URINE APPEARANCE CLEAR; URINE BILIRUBIN NEGATIVE (<2.0 mg/dL); URINE COLOR LTYELLOW; URINE GLUCOSE (UA) NEGATIVE (NEGATIVE); URINE KETONE NEGATIVE (NEGATIVE); URINE LEUK ESTERASE TRACE (NEGATIVE); URINE NITRITE NEGATIVE (NEGATIVE); URINE PROTEIN NEGATIVE (NEGATIVE); URINE UROBILINOGEN 4.0 E.U/dl mg/dL (0.2-1.0)
[2018-01-13 21:25] LABS: EPI CELLS RARE /HPF (FEW)
[2018-01-14] MEDS ORDERED: PT OWN MED DRAWER 7, Y5N ONE (09:40)
[2018-01-14] MEDS: THIAMINE HCL 100 MG TABLET (FP) PO SCH (09:41)
[2018-01-14] MEDS: RANITIDINE HCL 150 MG TABLET (FP) PO SCH ×2 (09:41→20:59)
[2018-01-14] MEDS: HYDROCHLOROTHIAZIDE 12.5 MG CAPSULE (FP) PO SCH (09:42)
[2018-01-14] MEDS: amLODIPine BESYLATE 5 MG TABLET (FP) PO SCH ×2 (09:42→20:59)
[2018-01-14] MEDS: ASPIRIN 81 MG CHEWABLE TABLETS PO SCH (09:42)
[2018-01-14] MEDS: CALCIUM 500MG/VIT-D 200 UNITS COMBO TABLET (FP) PO SCH ×2 (09:42→20:59)
[2018-01-14] MEDS: LACTULOSE 20 GM/30 ML UDC (FOR ORAL USE ONLY) PO SCH ×5 (09:45→23:37)
[2018-01-14] MEDS: buPROPion HCL 75 MG TABLET PO SCH (09:49)
[2018-01-14] MEDS ORDERED: MAGNESIUM OXIDE 400 MG TABLET (FP) PO ONE (10:34)
[2018-01-14 11:08] VITALS: BMI 31.8
--- NOTE | 2018-01-14 11:42 | PN ---
Teaching Attending Note Name of Resident: Sebastian Klein ATTENDING PHYSICIAN STATEMENT I saw and evaluated the patient. I reviewed the resident's note and discussed the case with the resident. I agree with the resident's findings and plan as documented. SUBJECTIVE:c/o worsening abdominal pain and poor appetite. unable to related if pain is related to eating. denies Cp, SOB, fever, chills, V/C/D + BM OBJECTIVE: Last Vital Signs Temp Pulse Resp BP Pulse Ox 97.7 F 88 20 120/62 98 01/14/18 08:58 01/14/18 08:58 01/14/18 08:58 01/14/18 08:58 01/13/18 21:00 General lethargic Abdomen +RUQ and RLQ tenderness no rebound or guarding soft ASSESSMENT AND PLAN: 62yo F with PMH cirrhosis, HCV, continous ETOH and heroin use that completed detox at [facility] and currently there for rehab presented for abdominal pain x5 days 1. Abdominal pain- possible gastroenteritis. possible colitis? CT scan unclear. will start Flagyl and downgrade diet to clear liquids and monitor for improvement. pain and nausea controlled 2. elevated ammonia- however pt is alert and oriented. +BM, lactulose to titrate BM 2-3 per day 3. Cirrhosis 4. HCV- unclear if patient was treated or not. 5. Continuous polysubstance use- no signs of withdrawal. avoid narcotics. MVI. plan to return to [facility] 6. DVT ppx- EAM
--- NOTE | 2018-01-14 13:04 | PN ---
Physical Exam: SUBJECTIVE: Patient seen and examined. Pt. refused Lactulose and Buproprion yesterday and last night. Pt. complained of right sided pain 7/10 over night. Pt. has a normal BM. Pt. endorses chills and tremors(which started at [facility]) OBJECTIVE: Vital Signs Period Temp Pulse Resp BP Sys/Craig Pulse Ox Last 24 Hr 97.7 F-98.6 F 80-88 18-20 108-128/53-67 98 GENERAL: The patient is awake, alert, and fully oriented, in mild distress. HEAD: Normal with no signs of trauma. LUNGS: Breath sounds equal, clear to auscultation bilaterally, no wheezes, no crackles, no accessory muscle use- limited exam d/t lack of cooperation. HEART: Regular rate and rhythm, S1, S2 without murmur- limited exam d/t lack of cooperation ABDOMEN: Soft, tender in RLQ? RUQ?, nondistended, normoactive bowel sounds, guarding right side of abdomen-limited exam d/t lack of cooperation. Pt. refused to do straight leg test or Psoas test. EXTREMITIES: 2+ dorsal pedal pulses, warm, well-perfused, no edema, no calf tenderness. SKIN: Warm, dry, normal turgor Laboratory Results - last 24 hr 01/13/18 20:45 Urine Color Ltyellow Urine Appearance Clear Urine pH 7.0 Ur Specific [place] 1.011 Urine Protein Negative Urine Glucose (UA) Negative Urine Ketones Negative Urine Blood Negative Urine Nitrite Negative Urine Bilirubin Negative Urine Urobilinogen 4.0 e.u/dl H Ur Leukocyte Esterase Trace Urine WBC (Auto) 14 Urine RBC (Auto) <1 Ur Epithelial Cells Rare Active Medications Current Medications Albuterol Sulfate (Ventolin Hfa Inhaler -) 2 puff IH Q4H PRN PRN Reason: ASTHMA Amlodipine Besylate (Norvasc -) 5 mg PO BID [facility] Last Admin: 01/14/18 09:42 Dose: 5 mg Aspirin (Asa -) 81 mg PO DAILY [facility] Last Admin: 01/14/18 09:42 Dose: 81 mg Bupropion HCl (Wellbutrin -) 75 mg PO DAILY [facility] Last Admin: 01/14/18 09:49 Dose: Not Given Calcium Carbonate/Cholecalciferol (Os-Siddhartha 500+D -) 1 tab PO BID [facility] Last Admin: 01/14/18 09:42 Dose: 1 tab Hydrochlorothiazide (Hctz -) 12.5 mg PO DAILY [facility] Last Admin: 01/14/18 09:42 Dose: 12.5 mg Sodium Chloride (Normal Saline -) 1,000 mls @ 75 mls/hr IV ASDIR [facility] Last Admin: 01/12/18 23:53 Dose: 75 mls/hr Lactulose (Cephulac (Oral Use)) 20 gm PO QID [facility] Last Admin: 01/14/18 09:45 Dose: Not Given Metronidazole (Flagyl -) 250 mg PO TID [facility] Quetiapine Fumarate (Seroquel -) 100 mg PO HS [facility] Last Admin: 01/13/18 21:12 Dose: 100 mg Ranitidine HCl (Zantac -) 150 mg PO BID [facility] Last Admin: 01/14/18 09:41 Dose: 150 mg Thiamine HCl (Vitamin B1 -) 100 mg PO DAILY [facility] Last Admin: 01/14/18 09:41 Dose: 100 mg Zolpidem Tartrate (Ambien -) 10 mg PO HS PRN PRN Reason: INSOMNIA Last Admin: 01/13/18 21:12 Dose: 10 mg ASSESSMENT/PLAN: 62yo F with PMH cirrhosis, HCV, continous ETOH and heroin use that completed detox at [facility] and currently there for rehab presented for abdominal pain x5 days #Abdominal pain - possible gastroenteritis vs. possible colitis? - CT scan unclear on acute vs. chronic colitis - started Flagyl PO 250mg PO TID - downgraded diet to clear liquids and monitor for improvement. - pain and nausea controlled #Cirrhosis - Elevated ammonia - however pt is alert and oriented. - Has had BM - lactulose to titrate BM 2-3 per day #HCV - unclear if patient was treated or not. #Polysubstance use - no signs of withdrawal. - avoid narcotics. - Multivitamin - Plan to return to [facility] #DVT ppx - Early ambulation #Dispo -Plan to return to [facility] Visit type - Emergency Visit Emergency Visit: Yes ED Registration Date: 01/12/18 Care time: The patient presented to the Emergency Department on the above date and was hospitalized for further evaluation of their emergent condition. - New Patient This patient is new to me today: Yes Date on this admission: 01/14/18 - Critical Care Critical Care patient: No - Discharge Referral Referred to [facility] No
[2018-01-14] MEDS: metroNIDAZOLE 250 MG TABLET PO SCH ×2 (13:55→20:59)
[2018-01-14] MEDS: SODIUM CHLORIDE 1,000 ML IV SCH ×2 (20:58→23:36)
[2018-01-14] MEDS: ZOLPIDEM TARTRATE 5 MG TABLET PO PRN (20:59)
[2018-01-14] MEDS: QUEtiapine FUMARATE 50 MG TABLET PO SCH (20:59)
[2018-01-15] MEDS ORDERED: ACETAMINOPHEN 325 MG TABLET (FP) PO ONE (01:36)
[2018-01-15] MEDS: metroNIDAZOLE 250 MG TABLET PO SCH ×3 (06:01→22:54)
--- NOTE | 2018-01-15 10:41 | EKG ---
Test Reason : Blood Pressure : / mmHG Vent. Rate : 078 BPM Atrial Rate : 078 BPM P-R Int : 156 ms QRS Dur : 078 ms QT Int : 444 ms P-R-T Axes : 053 -01 054 degrees QTc Int : 506 ms NORMAL SINUS RHYTHM PROLONGED QT ABNORMAL ECG WHEN COMPARED WITH ECG OF 05-JAN-2018 13:03, NO SIGNIFICANT CHANGE WAS FOUND Confirmed by WINSTON QUILES MD ([id number]) on 01/15/2018 10:40:58 AM Referred By: Confirmed By:WINSTON QUILES MD
[2018-01-15] MEDS: ASPIRIN 81 MG CHEWABLE TABLETS PO SCH (10:53)
[2018-01-15] MEDS: HYDROCHLOROTHIAZIDE 12.5 MG CAPSULE (FP) PO SCH (10:53)
[2018-01-15] MEDS: amLODIPine BESYLATE 5 MG TABLET (FP) PO SCH ×2 (10:53→22:54)
[2018-01-15] MEDS: LACTULOSE 20 GM/30 ML UDC (FOR ORAL USE ONLY) PO SCH ×5 (10:53→22:59)
[2018-01-15] MEDS: THIAMINE HCL 100 MG TABLET (FP) PO SCH (10:53)
[2018-01-15] MEDS: RANITIDINE HCL 150 MG TABLET (FP) PO SCH ×2 (10:53→22:54)
[2018-01-15] MEDS: CALCIUM 500MG/VIT-D 200 UNITS COMBO TABLET (FP) PO SCH ×2 (10:53→22:54)
[2018-01-15] MEDS ORDERED: PT OWN MED DRAWER 7, Y5N ONE (10:54)
[2018-01-15] MEDS: buPROPion HCL 75 MG TABLET PO SCH (10:56)
--- NOTE | 2018-01-15 13:09 | PN ---
Teaching Attending Note Name of Resident: Edward Jones ATTENDING PHYSICIAN STATEMENT I saw and evaluated the patient. I reviewed the resident's note and discussed the case with the resident. I agree with the resident's findings and plan as documented. SUBJECTIVE:now has abdominal pain in LLQ but overall improved. however no appetite. said she does not want whats on her tray. just wants micronesian fries. had 1 BM yesterday. denies CP, SOB, fever, chills, N/V/ OBJECTIVE: Last Vital Signs Temp Pulse Resp BP Pulse Ox 97.9 F 82 20 101/56 98 01/15/18 06:00 01/15/18 06:00 01/15/18 06:00 01/15/18 06:00 01/14/18 12:05 General lethargic, but opens eyes easily on verbal commands Abdomen soft NT/ND no rebound or guarding extremiteis no asterixis ASSESSMENT AND PLAN: 62yo F with PMH cirrhosis, HCV, continous ETOH and heroin use that completed detox at [facility] and currently there for rehab presented for abdominal pain x5 days 1. Abdominal pain- possible gastroenteritis. possible colitis? CT scan unclear. started on flagyl yesterday and appears improved. pain now moved to LLQ? will advance diet to regular to see if its a taste issue and why she is refusing to eat. pain and nausea controlled 2. elevated ammonia-pt is sleepy but oriented. will check ammonia level as pt has been refusing lactulose and having less frequent BM. 3. Cirrhosis 4. HCV- unclear if patient was treated or not. 5. Continuous polysubstance use- no signs of withdrawal. avoid narcotics. MVI. plan to return to [facility] 6. DVT ppx- EAM 7. plan to return to [facility] once tolerating diet
--- NOTE | 2018-01-15 16:32 | PN ---
Physical Exam: SUBJECTIVE: Patient seen and examined at bed side , AAOx 3 in NAD , sleepy , but anser all my questions had 4 BM since morning ,took lactulose in AM but refuse in the afternoon , still have RUQ pain. OBJECTIVE: Vital Signs Period Temp Pulse Resp BP Sys/Craig Pulse Ox Last 24 Hr 97.8 F-98.3 F 82-89 18-22 101-122/56-74 GENERAL: AAOx3 in NAD HEAD: NC/AT EYES: EOMI, Conjunctiva clear, sclera anicteric ENT: moist mucous membrane NECK: Supple, no JVD LUNGS: CTA B/L, no crackles no wheezing no accessory muscle use. HEART: RRR, NSR, normal s1, s2, murmur no M/R/G ABDOMEN: Soft, ND, NT, +BS 4 Q, no CVA Tenderness LOWER EXTREMITIES: no edema, +2DP pulse, NEUROLOGICAL: No focal deficit. Normal speech. gait not observed. PSYCHIATRIC: Cooperative. Good eye contact. Appropriate mood and affect. SKIN: Warm, dry, Laboratory Results - last 24 hr 01/15/18 01/15/18 11:13 13:40 Ammonia 45.48 H 42.0 H Active Medications Generic Name Dose Route Start Last Admin Trade Name Freq PRN Reason Stop Dose Admin Albuterol Sulfate 2 puff 01/12/18 23:03 Ventolin Hfa Inhaler - IH Q4H PRN ASTHMA Amlodipine Besylate 5 mg 01/13/18 10:00 01/15/18 10:53 Norvasc - PO 5 mg BID ROSALIO Administration Aspirin 81 mg 01/13/18 10:00 01/15/18 10:53 Asa - PO 81 mg DAILY ROSALIO Administration Bupropion HCl 75 mg 01/13/18 10:00 01/15/18 10:56 Wellbutrin - PO 75 mg DAILY ROSALIO Administration Calcium Carbonate/Cholecalciferol 1 tab 01/13/18 10:00 01/15/18 10:53 Os-Siddhartha 500+D - PO 1 tab BID ROSALIO Administration Hydrochlorothiazide 12.5 mg 01/13/18 10:00 01/15/18 10:53 Hctz - PO 12.5 mg DAILY ROSALIO Administration Sodium Chloride 1,000 mls @ 75 mls/hr 01/12/18 23:02 01/14/18 23:36 Normal Saline - IV Not Given ASDIR ROSALIO Lactulose 20 gm 01/12/18 23:15 01/15/18 14:35 Cephulac (Oral Use) PO Not Given QID ROSALIO Metronidazole 500 mg 01/15/18 07:48 01/15/18 14:35 Flagyl - PO 500 mg TID ROSALIO Administration Quetiapine Fumarate 100 mg 01/13/18 22:00 01/14/18 20:59 Seroquel - PO 100 mg HS ROSALIO Administration Ranitidine HCl 150 mg 01/13/18 10:00 01/15/18 10:53 Zantac - PO 150 mg BID ROSALIO Administration Thiamine HCl 100 mg 01/13/18 10:00 01/15/18 10:53 Vitamin B1 - PO 100 mg DAILY ROSALIO Administration Zolpidem Tartrate 10 mg 01/13/18 22:00 01/14/18 20:59 Ambien - PO 10 mg HS PRN Administration INSOMNIA CBC, BMP 01/12/18 16:20 01/13/18 06:00 ASSESSMENT/PLAN: 62yo F with PMH cirrhosis, HCV, continous ETOH and heroin use that completed detox at [facility] and currently there for rehab presented for abdominal pain x5 days #Abdominal pain , stable * possible gastroenteritis vs. possible colitis? * CT scan unclear on acute vs. chronic colitis * started Flagyl PO 250mg PO TID * advance diet as tolerated * pain and nausea controlled #Cirrhosis * Elevated ammonia 45...42 today * however pt is alert and oriented. but was confused over night * Has multiple BM today * lactulose to titrate BM 2-3 per day * pt refuse afternoon dose #HCV unclear if patient was treated or not. #Polysubstance use * no signs of withdrawal. * avoid narcotics. * Multivitamin * Plan to return to [facility] #DVT ppx * Early ambulation * no pharmacology prophylaxis is needed #Dispo * Plan to return to [facility] Visit type - Emergency Visit Emergency Visit: Yes ED Registration Date: 01/12/18 Care time: The patient presented to the Emergency Department on the above date and was hospitalized for further evaluation of their emergent condition. - New Patient This patient is new to me today: Yes Date on this admission: 01/15/18 - Critical Care Critical Care patient: No - Discharge Referral Referred to [facility] Med P.C.: No
[2018-01-15] MEDS: QUEtiapine FUMARATE 50 MG TABLET PO SCH (22:54)
[2018-01-15] MEDS: SODIUM CHLORIDE 1,000 ML IV SCH (22:55)
[2018-01-16] MEDS: metroNIDAZOLE 250 MG TABLET PO SCH ×2 (06:58→14:21)
[2018-01-16 08:28] LABS: BASO % 0.9 % (0-2.0); EOS % 2.9 % (0-4.5); HEMATOCRIT 36.5 % (32.4-45.2); HEMOGLOBIN 12.3 GM/dL (10.7-15.3); LYMPH % 41.1 % (8-40); MCH 29.2 pg (25.7-33.7); MCHC 33.6 g/dl (32.0-36.0); MEAN CELL VOLUME 86.8 fl (80-96); MEAN PLT VOLUME 10.6 fl (7.5-11.1); MONO % 12.6 % (3.8-10.2); NEUT % 42.5 % (42.8-82.8); PLATELET COUNT 131 K/MM3 (134-434); RBC 4.21 M/mm3 (3.60-5.2); RDW 17.4 % (11.6-15.6); WHITE BLOOD COUNT 6.1 K/mm3 (4.0-10.0)
[2018-01-16 08:48] LABS: ALBUMIN 2.8 g/dl (3.4-5.0); ALK PHOS 103 U/L (45-117); ANION GAP 8 (8-16); BLOOD UREA NITROGEN 15 mg/dL (7-18); CALCIUM 9.1 mg/dL (8.5-10.1); CHLORIDE 105 mmol/L (98-107); CO2 26 mmol/L (21-32); CREATININE 0.9 mg/dL (0.55-1.02); GLUCOSE,RANDOM 87 mg/dL (74-106); MAGNESIUM 1.8 mg/dL (1.8-2.4); PHOSPHOROUS 3.9 mg/dL (2.5-4.9); POTASSIUM 3.5 mmol/L (3.5-5.1); SGOT/AST 55 U/L (15-37); SGPT/ALT 52 U/L (12-78); SODIUM 139 mmol/L (136-145); TOT PROT 9.4 g/dl (6.4-8.2)
[2018-01-16] MEDS ORDERED: PT OWN MED DRAWER 7, Y5N ONE ×2 (10:18→15:03)
[2018-01-16] MEDS: buPROPion HCL 75 MG TABLET PO SCH (10:39)
[2018-01-16] MEDS: HYDROCHLOROTHIAZIDE 12.5 MG CAPSULE (FP) PO SCH (10:39)
[2018-01-16] MEDS: CALCIUM 500MG/VIT-D 200 UNITS COMBO TABLET (FP) PO SCH ×2 (10:39→21:11)
[2018-01-16] MEDS: ASPIRIN 81 MG CHEWABLE TABLETS PO SCH (10:39)
[2018-01-16] MEDS: LACTULOSE 20 GM/30 ML UDC (FOR ORAL USE ONLY) PO SCH ×4 (10:39→21:11)
[2018-01-16] MEDS: THIAMINE HCL 100 MG TABLET (FP) PO SCH (10:39)
[2018-01-16] MEDS: amLODIPine BESYLATE 5 MG TABLET (FP) PO SCH ×2 (10:39→21:11)
[2018-01-16] MEDS: RANITIDINE HCL 150 MG TABLET (FP) PO SCH ×2 (10:39→21:11)
[2018-01-16 12:10] LABS: INR 1.53 (0.83-1.09); PROTHROMBIN TIME (PATIENT) 17.3 SEC (9.7-13.0)
[2018-01-16 12:13] LABS: ACTIVATED PTT 41.2 SECONDS (25.2-36.5)
--- NOTE | 2018-01-16 15:00 | CON.GI ---
Consult Consult Specialty:: GI: Coveing for Dr. Beatty. [facility] care 01/17 Referred by:: Hospitalists Reason for Consultation:: Abdominal pain - History of Present Illness Chief Complaint: "I have pain" History of Present Illness: 62F admitted through [facility] ER having been sent from [facility] for evaluation of pain. She points towards her flank lower back and right lower abdomen ansd states that she has been having pain in these areas for three days. She denies nausea, vomiting, chills. She denies trauma to her back. She describes poor medical follow-up, that she has liver cirrhosis, used to abuse heroin still abuses alcohol (1 L of vodka per day) and was supposed to be treated for hepatitis C at the clinic in [place] that she attends. She also describes diarrhea. She denies recent antibiotic use. She does not recall ever having had an EGD or colonoscopy. There is no family history of colorectal cancer or other GI malignancy. - History Source History Provided By: Patient, Medical Record - Past Medical History Cardio/Vascular: Yes: HTN Pulmonary: Yes: Asthma, COPD Hepatobiliary: Yes: Cirrhosis, Hepatitis C ...LMP: 07/10/06 ...: No - Past Surgical History Past Surgical History: Yes: Cholecystectomy - Alcohol/Substance Use Hx Alcohol Use: Yes (1 pint of vodka daily ) History of Substance Use: reports: Heroin - Smoking History Smoking history: Unknown if ever smoked Have you smoked in the past 12 months: Yes Aproximately how many cigarettes per day: 0 If you are a former smoker, when did you quit?: MONTHS AGO - Social History Usual Living Arrangement: Alone ADL: Independent Occupation: Unemployed Place of : [facility] History of Recent Travel: No Home Medications - Allergies Allergies/Adverse Reactions: Allergies Allergy/AdvReac Type Severity Reaction Status Date / Time No Known Allergies Allergy Verified 01/12/18 14:00 - Home Medications Home Medications: Ambulatory Orders Quetiapine Fumarate [Seroquel -] 100 mg PO HS 09/25/15 Zolpidem Tartrate [Ambien] 10 mg PO HS 12/16/15 Bupropion HCl [Wellbutrin -] 75 mg PO DAILY #30 tablet 01/04/16 Thiamine HCl [Vitamin B1 -] 100 mg PO DAILY #30 tablet 03/16/17 Albuterol Sulfate Inhaler - [Ventolin HFA Inhaler -] 2 puff IH Q4H PRN #1 inhaler 04/26/17 Amlodipine Besylate [Norvasc -] 5 mg PO BID #60 tablet 04/26/17 Aspirin [ASA -] 81 mg PO DAILY #30 tab.chew 04/26/17 Calcium 500Mg/Vit-D 200 Units [Os-Siddhartha 500+D -] 1 tab PO BID #60 tab 04/26/17 Hydrochlorothiazide [Hctz -] 12.5 mg PO DAILY #30 cap 04/26/17 Lactulose (Oral Use) [Cephulac -] 20 gm PO QID 30 Days udc 04/26/17 Ranitidine [Zantac -] 150 mg PO BID #60 tablet 04/26/17 Family Disease History - Family Disease History Family Disease History: Diabetes: Father (: 60 diabetic complications), Mother ( 86: CAD / DM II), CA: Sister, Respiratory: Mother, Other: Mother, Son (2, healthy) Other Family History: No family history of colon cancer Review of Systems - Review of Systems Constitutional: denies: Chills Cardiovascular: denies: Chest Pain Respiratory: denies: SOB Gastrointestinal: reports: Abdominal Pain, Diarrhea. denies: Dysphagia, Indigestion, Rectal Bleeding, Vomiting, Vomiting Blood Physical Exam-GI Vital Signs: Vital Signs Temperature 98.1 F 01/16/18 10:00 Pulse Rate 86 01/16/18 10:00 Respiratory Rate 20 01/16/18 10:00 Blood Pressure 110/65 01/16/18 10:00 O2 Sat by Pulse Oximetry (%) 96 01/15/18 21:00 Constitutional: Yes: Calm Eyes: No: Sclera Icterus Cardiovascular: Yes: Regular Rate and Rhythm. No: Murmur Respiratory: Yes: CTA Bilaterally Gastrointestinal Inspection: Yes: Scars (healed trochar scars) ...Auscultate: Yes: Normoactive Bowel Sounds ...Palpate: No: Tenderness ...Percussion: No: Tympanitic ...Rectal Exam: Yes: Other (Mess Cook present: No external lesions, no masses, light brown stool guaiac negative) Musculoskeletal: Yes: Other (Marked TTP along the lumbar spine and right paravertebrals. There is ? a cluster of spider hemangiomata vs. a bruise midline along the lower lumbar back.) Neurological: Yes: Alert. No: Asterixis Labs: CBC, BMP 01/16/18 06:10 01/16/18 06:10 INR, PTT INR 1.53 (0.83-1.09) 01/16/18 11:30 Hepatic Panel Total Bilirubin 1.0 mg/dL (0.2-1.0) 01/16/18 06:10 Direct Bilirubin 0.5 mg/dL (0.0-0.2) H 01/13/18 06:00 AST 55 U/L (15-37) H 01/16/18 06:10 ALT 52 U/L (12-78) 01/16/18 06:10 Alkaline Phosphatase 103 U/L (45-117) D 01/16/18 06:10 Albumin 2.8 g/dl (3.4-5.0) L 01/16/18 06:10 Imaging - Results Cat Scan: Report Reviewed (Cirrhotic appearing liver, splenomegaly, ? subtle low attentuation sub mucosal low attenuation at the hepatic flexure: ? acute/ chronic colitis vs. underdistention. Left ovarian cyst, 1cm CBD (in setting of prior cholecystectomy)), Image Reviewed Problem List - Problems (1) Lower back pain Assessment/Plan: Seems to be my main physical exam finding with ? bruising in the lower lumbar back area. if causing radiating pain to right lower abdomen. Work-up per primary team Code(s): M54.5 - LOW BACK PAIN (2) Diarrhea Assessment/Plan: Stool for c. diff, O&P, culture Patient is on PO flagyl. PO flagyl is not recommended for treatment of C. Diff. If covering for C. Diff consider use of PO vanco 125mg PO q 6 hours. If C. Diff negative and continued diarrhea despite stopping lactulose, colonoscopy. Will need eventual colonoscopy anyways to evaluate the vague CT scan reading noted in the hepatic flexure. Code(s): R19.7 - DIARRHEA, UNSPECIFIED (3) Cirrhosis Assessment/Plan: Patient continues to abuse alcohol. Advised she needs to completely abstain from alcohol Q6 Month hepatic US / AFP tumor marker to scrren for HCC She was supposed to be treated for Hep C where she lives in [place]. She should follow-up with her PMD to discuss this further however if she will continue to drink and be potentially be non-compliant with her medication regimen due to intoxication, that will negatively impact starting a treatment that needs to be strictly adhered to. I expolained that to Ms. Marie Taper down lactulose Will need EGD at some point to screen for varices. Can be performed as outpatient once acute issues are resolved Code(s): K74.60 - UNSPECIFIED CIRRHOSIS OF LIVER
--- NOTE | 2018-01-16 15:41 | PN ---
Teaching Attending Note Name of Resident: Caleb Wright ATTENDING PHYSICIAN STATEMENT I saw and evaluated the patient. I reviewed the resident's note and discussed the case with the resident. I agree with the resident's findings and plan as documented with exceptions below. SUBJECTIVE: patient seen and examined. AAOx3, reports some abdominal pain but better, no nausea, vomiting, eating currently. OBJECTIVE: Vital Signs Period Temp Pulse Resp BP Sys/Craig Pulse Ox Last 24 Hr 97.9 F-98.7 F 85-95 20-20 110-131/55-79 96 Intake & Output 01/13/18 01/14/18 01/15/18 01/16/18 23:59 23:59 23:59 23:59 Intake Total 650 1180 520 760 Balance 650 1180 520 760 Weight 158 lb General: mild lethargy but appropriately responsive Neuro: AAOX3, positive asterexis, power generalized weakness 4/5, non focal, facial symmetry, tongue midline Abdomen:soft, obese, tenderness in LUQ/epigastrium/RUQ, more prominent in RUQ with hepatic margin below costal margin, no voluntary or involuntary guarding or rigidity, positive bowel sounds Extremities: no edema, asterexis as above Chest: CTAB, no rales or wheezing Home Medications Medication Instructions Recorded Quetiapine Fumarate [Seroquel -] 100 mg PO HS 09/25/15 Zolpidem Tartrate [Ambien] 10 mg PO HS 12/16/15 Bupropion HCl [Wellbutrin -] 75 mg PO DAILY #30 tablet 01/04/16 Thiamine HCl [Vitamin B1 -] 100 mg PO DAILY #30 tablet 03/16/17 Albuterol Sulfate Inhaler - 2 puff IH Q4H PRN #1 inhaler 04/26/17 [Ventolin HFA Inhaler -] Amlodipine Besylate [Norvasc -] 5 mg PO BID #60 tablet 04/26/17 Aspirin [ASA -] 81 mg PO DAILY #30 tab.chew 04/26/17 Calcium 500Mg/Vit-D 200 Units 1 tab PO BID #60 tab 04/26/17 [Os-Siddhartha 500+D -] Hydrochlorothiazide [Hctz -] 12.5 mg PO DAILY #30 cap 04/26/17 Lactulose (Oral Use) [Cephulac -] 20 gm PO QID 30 Days udc 04/26/17 Ranitidine [Zantac -] 150 mg PO BID #60 tablet 04/26/17 Active Medications Albuterol Sulfate (Ventolin Hfa Inhaler -) 2 puff IH Q4H PRN PRN Reason: ASTHMA Amlodipine Besylate (Norvasc -) 5 mg PO BID [facility] Last Admin: 01/16/18 10:39 Dose: 5 mg Aspirin (Asa -) 81 mg PO DAILY [facility] Last Admin: 01/16/18 10:39 Dose: 81 mg Bupropion HCl (Wellbutrin -) 75 mg PO DAILY [facility] Last Admin: 01/16/18 10:39 Dose: 75 mg Calcium Carbonate/Cholecalciferol (Os-Siddhartha 500+D -) 1 tab PO BID [facility] Last Admin: 01/16/18 10:39 Dose: 1 tab Hydrochlorothiazide (Hctz -) 12.5 mg PO DAILY [facility] Last Admin: 01/16/18 10:39 Dose: 12.5 mg Lactulose (Cephulac (Oral Use)) 20 gm PO QID [facility] Last Admin: 01/16/18 14:21 Dose: 20 gm Quetiapine Fumarate (Seroquel -) 100 mg PO HS [facility] Last Admin: 01/15/18 22:54 Dose: 100 mg Ranitidine HCl (Zantac -) 150 mg PO BID [facility] Last Admin: 01/16/18 10:39 Dose: 150 mg Thiamine HCl (Vitamin B1 -) 100 mg PO DAILY [facility] Last Admin: 01/16/18 10:39 Dose: 100 mg Zolpidem Tartrate (Ambien -) 10 mg PO HS PRN PRN Reason: INSOMNIA Last Admin: 01/14/18 20:59 Dose: 10 mg Laboratory Results - last 24 hr 01/16/18 01/16/18 01/16/18 06:10 06:10 06:10 WBC 6.1 RBC 4.21 Hgb 12.3 Hct 36.5 MCV 86.8 MCH 29.2 MCHC 33.6 RDW 17.4 H Plt Count 131 L MPV 10.6 Absolute Neuts (auto) 2.6 Neutrophils % 42.5 L D Lymphocytes % 41.1 H D Monocytes % 12.6 H Eosinophils % 2.9 Basophils % 0.9 Nucleated RBC % 0 PT with INR INR PTT (Actin FS) Sodium 139 Potassium 3.5 Chloride 105 Carbon Dioxide 26 Anion Gap 8 BUN 15 Creatinine 0.9 Creat Clearance w eGFR > 60 Random Glucose 87 Calcium 9.1 Phosphorus 3.9 Magnesium 1.8 Total Bilirubin 1.0 AST 55 H ALT 52 Alkaline Phosphatase 103 D Ammonia 41.49 H Total Protein 9.4 H Albumin 2.8 L 01/16/18 11:30 WBC RBC Hgb Hct MCV MCH MCHC RDW Plt Count MPV Absolute Neuts (auto) Neutrophils % Lymphocytes % Monocytes % Eosinophils % Basophils % Nucleated RBC % PT with INR 17.30 H* INR 1.53 PTT (Actin FS) 41.2 Sodium Potassium Chloride Carbon Dioxide Anion Gap BUN Creatinine Creat Clearance w eGFR Random Glucose Calcium Phosphorus Magnesium Total Bilirubin AST ALT Alkaline Phosphatase Ammonia Total Protein Albumin Microbiology 01/12/18 12:30 Urine - Urine Clean Catch Urine Culture - Final Proteus Mirabilis ASSESSMENT AND PLAN: 62yo F with PMH cirrhosis, HCV, continous ETOH and heroin use that completed detox at [facility] and currently there for rehab presented for abdominal pain x5 days -Abdominal pain, ?alcoholic gastritis vs ?mild colitis (fluid in hepatic flexure vs artefact), unlikely pancreatitis given normal pancreas on CT/normal lipase) -Acute hepatic encephalopathy -Abdominal distension, r/o ascitis -Alcohol/HCV cirrhosis -ETOH abuse -Prolonged QTc -Hypomagnesemia Plan: d/c flagyl, stool c difficile but unlikely given presentation. GI input appreciated. Abdominal US to assess for ascitis. D/c IVF. Reinforced lactulose compliance with patient, in agreement with the same. GI consult, input appreciated. Psych meds as mental status tolerates. PT eval when clinically improved. May need SNF prior to return to [facility] rehab. Plan discussed with patient in detail, all questions answered.
--- NOTE | 2018-01-16 20:18 | PN ---
Physical Exam: SUBJECTIVE: Patient seen and examined Patient seen and examined at bed side , AAOx 3 in NAD , sleepy , but answer all questions still have RUQ pain and refusing lactulose. In the afternoon she took lactulose after encouragement OBJECTIVE: Vital Signs Period Temp Pulse Resp BP Sys/Craig Pulse Ox Last 24 Hr 97.9 F-98.6 F 85-95 20-20 110-131/55-79 96-96 GENERAL: A Ox1 in morning and then x3 in NAD HEAD: NC/AT EYES: EOMI, Conjunctiva clear, sclera anicteric ENT: mmm NECK: Supple, no JVD LUNGS: CTA B/L, no crackles no wheezing no accessory muscle use. HEART: RRR, NSR, normal s1, s2, murmur no M/R/G ABDOMEN: TTP LUQ/epigastrium/RUQ, more prominent in RUQ Soft, ND, +BS 4 Q, no CVA Tenderness LOWER EXTREMITIES: no edema, +2DP pulse, NEUROLOGICAL: No focal deficit. Normal speech. gait not observed. positive asterexis, generalized weakness 4/5, PSYCHIATRIC: Cooperative. Good eye contact. Appropriate mood and affect. SKIN: Warm, dry, Laboratory Results - last 24 hr 01/16/18 01/16/18 01/16/18 06:10 06:10 06:10 WBC 6.1 RBC 4.21 Hgb 12.3 Hct 36.5 MCV 86.8 MCH 29.2 MCHC 33.6 RDW 17.4 H Plt Count 131 L MPV 10.6 Absolute Neuts (auto) 2.6 Neutrophils % 42.5 L D Lymphocytes % 41.1 H D Monocytes % 12.6 H Eosinophils % 2.9 Basophils % 0.9 Nucleated RBC % 0 PT with INR INR PTT (Actin FS) Sodium 139 Potassium 3.5 Chloride 105 Carbon Dioxide 26 Anion Gap 8 BUN 15 Creatinine 0.9 Creat Clearance w eGFR > 60 Random Glucose 87 Calcium 9.1 Phosphorus 3.9 Magnesium 1.8 Total Bilirubin 1.0 AST 55 H ALT 52 Alkaline Phosphatase 103 D Ammonia 41.49 H Total Protein 9.4 H Albumin 2.8 L 01/16/18 11:30 WBC RBC Hgb Hct MCV MCH MCHC RDW Plt Count MPV Absolute Neuts (auto) Neutrophils % Lymphocytes % Monocytes % Eosinophils % Basophils % Nucleated RBC % PT with INR 17.30 H* INR 1.53 PTT (Actin FS) 41.2 Sodium Potassium Chloride Carbon Dioxide Anion Gap BUN Creatinine Creat Clearance w eGFR Random Glucose Calcium Phosphorus Magnesium Total Bilirubin AST ALT Alkaline Phosphatase Ammonia Total Protein Albumin Active Medications Generic Name Dose Route Start Last Admin Trade Name Freq PRN Reason Stop Dose Admin Albuterol Sulfate 2 puff 01/12/18 23:03 Ventolin Hfa Inhaler - IH Q4H PRN ASTHMA Amlodipine Besylate 5 mg 01/13/18 10:00 01/16/18 10:39 Norvasc - PO 5 mg BID ROSALIO Administration Aspirin 81 mg 01/13/18 10:00 01/16/18 10:39 Asa - PO 81 mg DAILY ROSALIO Administration Bupropion HCl 75 mg 01/13/18 10:00 01/16/18 10:39 Wellbutrin - PO 75 mg DAILY ROSALIO Administration Calcium Carbonate/Cholecalciferol 1 tab 01/13/18 10:00 01/16/18 10:39 Os-Siddhartha 500+D - PO 1 tab BID ROSALIO Administration Hydrochlorothiazide 12.5 mg 01/13/18 10:00 01/16/18 10:39 Hctz - PO 12.5 mg DAILY ROSALIO Administration Lactulose 20 gm 01/12/18 23:15 01/16/18 17:58 Cephulac (Oral Use) PO 20 gm QID ROSALIO Administration Quetiapine Fumarate 100 mg 01/13/18 22:00 01/15/18 22:54 Seroquel - PO 100 mg HS ROSALIO Administration Ranitidine HCl 150 mg 01/13/18 10:00 01/16/18 10:39 Zantac - PO 150 mg BID ROSALIO Administration Thiamine HCl 100 mg 01/13/18 10:00 01/16/18 10:39 Vitamin B1 - PO 100 mg DAILY ROSALIO Administration Zolpidem Tartrate 10 mg 01/13/18 22:00 01/14/18 20:59 Ambien - PO 10 mg HS PRN Administration INSOMNIA Cat Scan: Report Reviewed (Cirrhotic appearing liver, splenomegaly, ? subtle low attentuation sub mucosal low attenuation at the hepatic flexure: ? acute/ chronic colitis vs. underdistention. Left ovarian cyst, 1cm CBD (in setting of prior cholecystectomy)), Image Reviewed ASSESSMENT/PLAN: 62yo F with PMH cirrhosis, HCV, continous ETOH and heroin use that completed detox at [facility] and currently there for rehab presented for abdominal pain x5 days #Abdominal pain , stable * possible gastroenteritis vs. possible colitis? unlikely pancreatitis given normal pancreas on CT w/ normal lipase) * CT scan unclear on acute vs. chronic colitis * d/c flagyl, stool c difficile but unlikely given presentation. GI input appreciated. * f/u stool C diff * advance diet as tolerated * pain and nausea controlled * Abdominal US to assess for ascitis. * Will need eventual colonoscopy outpt to evaluate the vague CT scan reading noted in the hepatic flexure. #Cirrhosis * Elevated ammonia 45...42...41 today * however pt is alert and oscillating in orientation btw 1-3. * Has multiple BM * lactulose to titrate BM 2-3 per day * pt refuse, morning dose but took afternoon dose w/ encouragement * Will need EGD at some point/outpt to screen for varices. #HCV was supposed to be treated for hepatitis C at the clinic in [place] that she attends. unclear if patient was treated or not. #Polysubstance use * no signs of withdrawal. * avoid narcotics. * Multivitamin * Plan to return to [facility] #DVT ppx * Early ambulation * no pharmacology prophylaxis is needed #FEN -d/c IVF -replete naheed as necessary -cardiac diet #Dispo * Plan to return to [facility] * PT eval when clinically improved. * May need SNF prior to return to [facility] rehab. Visit type - Emergency Visit Emergency Visit: Yes ED Registration Date: 01/12/18 Care time: The patient presented to the Emergency Department on the above date and was hospitalized for further evaluation of their emergent condition. - New Patient This patient is new to me today: Yes Date on this admission: 01/16/18 - Critical Care Critical Care patient: No
[2018-01-16] MEDS: QUEtiapine FUMARATE 50 MG TABLET PO SCH (21:11)
[2018-01-16] MEDS: ZOLPIDEM TARTRATE 5 MG TABLET PO PRN (21:11)
[2018-01-17 07:01] LABS: EOS % 2.7 % (0-4.5); HEMATOCRIT 35.9 % (32.4-45.2); HEMOGLOBIN 12.1 GM/dL (10.7-15.3); LYMPH % 41.8 % (8-40); MCHC 33.7 g/dl (32.0-36.0); MEAN CELL VOLUME 86.1 fl (80-96); MEAN PLT VOLUME 10.4 fl (7.5-11.1); MONO % 13.6 % (3.8-10.2); NEUT % 40.9 % (42.8-82.8); PLATELET COUNT 132 K/MM3 (134-434); RBC 4.16 M/mm3 (3.60-5.2); RDW 17.2 % (11.6-15.6); WHITE BLOOD COUNT 6.1 K/mm3 (4.0-10.0)
[2018-01-17 07:23] LABS: INR 1.58 (0.83-1.09); PROTHROMBIN TIME (PATIENT) 17.8 SEC (9.7-13.0)
[2018-01-17 07:26] LABS: ACTIVATED PTT 38.6 SECONDS (25.2-36.5)
[2018-01-17 07:30] LABS: CHLORIDE 106 mmol/L (98-107); POTASSIUM 3.3 mmol/L (3.5-5.1); SODIUM 141 mmol/L (136-145)
[2018-01-17 07:48] LABS: ALBUMIN 2.9 g/dl (3.4-5.0); ALK PHOS 102 U/L (45-117); ANION GAP 9 (8-16); BLOOD UREA NITROGEN 15 mg/dL (7-18); CALCIUM 9.7 mg/dL (8.5-10.1); CO2 26 mmol/L (21-32); CREATININE 0.9 mg/dL (0.55-1.02); GLUCOSE,RANDOM 95 mg/dL (74-106); MAGNESIUM 1.6 mg/dL (1.8-2.4); PHOSPHOROUS 3.9 mg/dL (2.5-4.9); SGOT/AST 52 U/L (15-37); SGPT/ALT 48 U/L (12-78); TOT PROT 9.5 g/dl (6.4-8.2)
[2018-01-17] MEDS ORDERED: PT OWN MED DRAWER 7, Y5N ONE (09:45)
[2018-01-17] MEDS: RANITIDINE HCL 150 MG TABLET (FP) PO SCH ×2 (09:49→23:17)
[2018-01-17] MEDS: ASPIRIN 81 MG CHEWABLE TABLETS PO SCH (09:49)
[2018-01-17] MEDS: THIAMINE HCL 100 MG TABLET (FP) PO SCH (09:49)
[2018-01-17] MEDS: LACTULOSE 20 GM/30 ML UDC (FOR ORAL USE ONLY) PO SCH ×4 (09:49→23:16)
[2018-01-17] MEDS: amLODIPine BESYLATE 5 MG TABLET (FP) PO SCH ×2 (09:49→23:17)
[2018-01-17] MEDS: CALCIUM 500MG/VIT-D 200 UNITS COMBO TABLET (FP) PO SCH ×2 (09:49→23:17)
[2018-01-17] MEDS: HYDROCHLOROTHIAZIDE 12.5 MG CAPSULE (FP) PO SCH (09:49)
[2018-01-17] MEDS: buPROPion HCL 75 MG TABLET PO SCH (09:50)
[2018-01-17] MEDS: MAGNESIUM 1GM/D5W 100ML - 100 ML IVPB IVPB SCH ×2 (09:50→11:07)
--- NOTE | 2018-01-17 18:30 | PN ---
Teaching Attending Note Name of Resident: Caleb Wright ATTENDING PHYSICIAN STATEMENT I saw and evaluated the patient. I reviewed the resident's note and discussed the case with the resident. I agree with the resident's findings and plan as documented with exceptions below. SUBJECTIVE: patient seen and examined. eating, pain better, no new concerns. OBJECTIVE: Vital Signs Period Temp Pulse Resp BP Sys/Craig Pulse Ox Last 24 Hr 97.7 F-98.2 F 83-110 20-22 121-149/61-98 96-96 Intake & Output 01/14/18 01/15/18 01/16/18 01/17/18 23:59 23:59 23:59 23:59 Intake Total 3705 959 0071 240 Balance 5276 121 0293 240 Weight 158 lb General: lying in bed, more awake Chest: decreased effort, no rales or wheezing Abdomen:Soft, NT currently, Extremities: fine tremors Neuro : AAOx3, otherwise unchanged exam Home Medications Medication Instructions Recorded Quetiapine Fumarate [Seroquel -] 100 mg PO HS 09/25/15 Zolpidem Tartrate [Ambien] 10 mg PO HS 12/16/15 Bupropion HCl [Wellbutrin -] 75 mg PO DAILY #30 tablet 01/04/16 Thiamine HCl [Vitamin B1 -] 100 mg PO DAILY #30 tablet 03/16/17 Albuterol Sulfate Inhaler - 2 puff IH Q4H PRN #1 inhaler 04/26/17 [Ventolin HFA Inhaler -] Amlodipine Besylate [Norvasc -] 5 mg PO BID #60 tablet 04/26/17 Aspirin [ASA -] 81 mg PO DAILY #30 tab.chew 04/26/17 Calcium 500Mg/Vit-D 200 Units 1 tab PO BID #60 tab 04/26/17 [Os-Siddhartha 500+D -] Hydrochlorothiazide [Hctz -] 12.5 mg PO DAILY #30 cap 04/26/17 Lactulose (Oral Use) [Cephulac -] 20 gm PO QID 30 Days udc 04/26/17 Ranitidine [Zantac -] 150 mg PO BID #60 tablet 04/26/17 Active Medications Albuterol Sulfate (Ventolin Hfa Inhaler -) 2 puff IH Q4H PRN PRN Reason: ASTHMA Amlodipine Besylate (Norvasc -) 5 mg PO BID [facility] Last Admin: 01/17/18 09:49 Dose: 5 mg Aspirin (Asa -) 81 mg PO DAILY [facility] Last Admin: 01/17/18 09:49 Dose: 81 mg Bupropion HCl (Wellbutrin -) 75 mg PO DAILY [facility] Last Admin: 01/17/18 09:50 Dose: 75 mg Calcium Carbonate/Cholecalciferol (Os-Siddhartha 500+D -) 1 tab PO BID [facility] Last Admin: 01/17/18 09:49 Dose: 1 tab Cefuroxime Axetil (Ceftin -) 250 mg PO BID [facility] Hydrochlorothiazide (Hctz -) 12.5 mg PO DAILY [facility] Last Admin: 01/17/18 09:49 Dose: 12.5 mg Lactulose (Cephulac (Oral Use)) 20 gm PO QID [facility] Last Admin: 01/17/18 17:33 Dose: 20 gm Quetiapine Fumarate (Seroquel -) 100 mg PO HS [facility] Last Admin: 01/16/18 21:11 Dose: 100 mg Ranitidine HCl (Zantac -) 150 mg PO BID [facility] Last Admin: 01/17/18 09:49 Dose: 150 mg Thiamine HCl (Vitamin B1 -) 100 mg PO DAILY [facility] Last Admin: 01/17/18 09:49 Dose: 100 mg Zolpidem Tartrate (Ambien -) 10 mg PO HS PRN PRN Reason: INSOMNIA Last Admin: 01/16/18 21:11 Dose: 10 mg Laboratory Results - last 24 hr 01/17/18 01/17/18 01/17/18 05:50 05:50 05:50 WBC 6.1 RBC 4.16 Hgb 12.1 Hct 35.9 MCV 86.1 MCH 29.0 MCHC 33.7 RDW 17.2 H Plt Count 132 L MPV 10.4 Absolute Neuts (auto) 2.5 Neutrophils % 40.9 L Lymphocytes % 41.8 H Monocytes % 13.6 H Eosinophils % 2.7 Basophils % 1.0 Nucleated RBC % 0 PT with INR 17.80 H* INR 1.58 PTT (Actin FS) 38.6 Sodium 141 Potassium 3.3 L Chloride 106 Carbon Dioxide 26 Anion Gap 9 BUN 15 Creatinine 0.9 Creat Clearance w eGFR > 60 Random Glucose 95 Calcium 9.7 Phosphorus 3.9 Magnesium 1.6 L Total Bilirubin 1.0 AST 52 H ALT 48 Alkaline Phosphatase 102 Ammonia Total Protein 9.5 H Albumin 2.9 L 01/17/18 09:10 WBC RBC Hgb Hct MCV MCH MCHC RDW Plt Count MPV Absolute Neuts (auto) Neutrophils % Lymphocytes % Monocytes % Eosinophils % Basophils % Nucleated RBC % PT with INR INR PTT (Actin FS) Sodium Potassium Chloride Carbon Dioxide Anion Gap BUN Creatinine Creat Clearance w eGFR Random Glucose Calcium Phosphorus Magnesium Total Bilirubin AST ALT Alkaline Phosphatase Ammonia 35.35 H Total Protein Albumin Microbiology 01/12/18 12:30 Urine - Urine Clean Catch Urine Culture - Final Proteus Mirabilis ASSESSMENT AND PLAN: 62yo F with PMH cirrhosis, HCV, continous ETOH and heroin use that completed detox at [facility] and currently there for rehab presented for abdominal pain x5 days -Abdominal pain, ?alcoholic gastritis vs ?mild colitis (fluid in hepatic flexure vs artefact), unlikely pancreatitis given normal pancreas on CT/normal lipase) -Acute hepatic encephalopathy -Abdominal distension, r/o ascitis -Alcohol/HCV cirrhosis -ETOH abuse -Prolonged QTc -Hypomagnesemia Plan: Abdominal pain improved, off antibiotics, no concerns. GI input appreciated. Abdominal US neg for ascitis. Lactulose. Psych meds as mental status tolerates. PT eval, reinforce OOB with patient. Plan discussed with patient in detail, all questions answered.
--- NOTE | 2018-01-17 20:07 | PN ---
Physical Exam: SUBJECTIVE: Patient seen and examined Patient seen and examined at bed side , AAOx 3 in NAD , sleepy , but answer all questions still have RUQ pain and refusing lactulose. In the afternoon she took lactulose after encouragement OBJECTIVE: Vital Signs Period Temp Pulse Resp BP Sys/Craig Pulse Ox Last 24 Hr 97.4 F-98.2 F 83-110 20-22 121-149/61-98 96-96 GENERAL: A Ox1 in morning and then x3 in afternoon NAD. groggy HEAD: NC/AT EYES: EOMI, Conjunctiva clear, sclera anicteric ENT: mmm NECK: Supple, no JVD LUNGS: CTA B/L, no crackles no wheezing no accessory muscle use. HEART: RRR, NSR, normal s1, s2, murmur no M/R/G ABDOMEN: TTP RUQ/RLQ, more prominent in RUQ Soft, ND, +BS 4 Q, no CVA Tenderness LOWER EXTREMITIES: no edema, +2DP pulse, NEUROLOGICAL: No focal deficit. Normal speech. gait not observed. positive asterexis/tremors, generalized weakness 4/5 strength, PSYCHIATRIC: Cooperative. Good eye contact. Appropriate mood and affect. SKIN: Warm, dry, Laboratory Results - last 24 hr 01/17/18 01/17/18 01/17/18 05:50 05:50 05:50 WBC 6.1 RBC 4.16 Hgb 12.1 Hct 35.9 MCV 86.1 MCH 29.0 MCHC 33.7 RDW 17.2 H Plt Count 132 L MPV 10.4 Absolute Neuts (auto) 2.5 Neutrophils % 40.9 L Lymphocytes % 41.8 H Monocytes % 13.6 H Eosinophils % 2.7 Basophils % 1.0 Nucleated RBC % 0 PT with INR 17.80 H* INR 1.58 PTT (Actin FS) 38.6 Sodium 141 Potassium 3.3 L Chloride 106 Carbon Dioxide 26 Anion Gap 9 BUN 15 Creatinine 0.9 Creat Clearance w eGFR > 60 Random Glucose 95 Calcium 9.7 Phosphorus 3.9 Magnesium 1.6 L Total Bilirubin 1.0 AST 52 H ALT 48 Alkaline Phosphatase 102 Ammonia Total Protein 9.5 H Albumin 2.9 L 01/17/18 09:10 WBC RBC Hgb Hct MCV MCH MCHC RDW Plt Count MPV Absolute Neuts (auto) Neutrophils % Lymphocytes % Monocytes % Eosinophils % Basophils % Nucleated RBC % PT with INR INR PTT (Actin FS) Sodium Potassium Chloride Carbon Dioxide Anion Gap BUN Creatinine Creat Clearance w eGFR Random Glucose Calcium Phosphorus Magnesium Total Bilirubin AST ALT Alkaline Phosphatase Ammonia 35.35 H Total Protein Albumin Active Medications Generic Name Dose Route Start Last Admin Trade Name Freq PRN Reason Stop Dose Admin Albuterol Sulfate 2 puff 01/12/18 23:03 Ventolin Hfa Inhaler - IH Q4H PRN ASTHMA Amlodipine Besylate 5 mg 01/13/18 10:00 01/17/18 09:49 Norvasc - PO 5 mg BID [facility]AL[facility] Administration Aspirin 81 mg 01/13/18 10:00 01/17/18 09:49 Asa - PO 81 mg DAILY [facility] Administration Bupropion HCl 75 mg 01/13/18 10:00 01/17/18 09:50 Wellbutrin - PO 75 mg DAILY [facility] Administration Calcium Carbonate/Cholecalciferol 1 tab 01/13/18 10:00 01/17/18 09:49 Os-Siddhartha 500+D - PO 1 tab BID [facility] Administration Cefuroxime Axetil 250 mg 01/17/18 22:00 Ceftin - PO BID [facility] Hydrochlorothiazide 12.5 mg 01/13/18 10:00 01/17/18 09:49 Hctz - PO 12.5 mg DAILY [facility] Administration Lactulose 20 gm 01/12/18 23:15 01/17/18 17:33 Cephulac (Oral Use) PO 20 gm QID [facility] Administration Quetiapine Fumarate 100 mg 01/13/18 22:00 01/16/18 21:11 Seroquel - PO 100 mg HS [facility]AL[facility] Administration Ranitidine HCl 150 mg 01/13/18 10:00 01/17/18 09:49 Zantac - PO 150 mg BID [facility] Administration Thiamine HCl 100 mg 01/13/18 10:00 01/17/18 09:49 Vitamin B1 - PO 100 mg DAILY [facility] Administration Zolpidem Tartrate 10 mg 01/13/18 22:00 01/16/18 21:11 Ambien - PO 10 mg HS PRN Administration INSOMNIA Abdominal US neg for ascitis 01/12/18 12:30 Urine - Urine Clean Catch Urine Culture - Final Proteus Mirabilis ASSESSMENT/PLAN: 62yo F with PMH cirrhosis, HCV, continous ETOH and heroin use that completed detox at [facility] and currently there for rehab presented for abdominal pain x5 days #Abdominal pain , stable * possible gastroenteritis vs. possible colitis? unlikely pancreatitis given normal pancreas on CT w/ normal lipase) * CT scan unclear on acute vs. chronic colitis * d/c flagyl, stool c difficile but unlikely given presentation. GI input appreciated. * f/u stool C diff * advance diet as tolerated * pain and nausea controlled * Abdominal US neg for ascitis. * Will need eventual colonoscopy outpt to evaluate the vague CT scan reading noted in the hepatic flexure. #Cirrhosis * Elevated ammonia 45...42...41...35 today * pt taking half of lactulose dose. c/w encouragement for complete compliance * however pt is alert and oscillating in orientation btw 1-3. * Has multiple BM, lactulose to titrate BM 2-3 per day * Will need EGD at some point/outpt to screen for varices. #Lower uncomplicated Proteus UTI vs asymptomatic bacteruria -start ceftin x 5 days. #Hypokalemia - 3.3 -gave Mg -follow BMP and give K if still low #HCV was supposed to be treated for hepatitis C at the clinic in [place] that she attends. unclear if patient was treated or not. #Polysubstance use * no signs of withdrawal. * avoid narcotics. * Multivitamin * Plan to return to [facility] #DVT ppx * Early ambulation * no pharmacology prophylaxis is needed #FEN -d/c IVF -replete naheed as necessary -cardiac diet #Dispo * Plan to return to [facility] * PT came today but pt refused. will encourage for sudeep * May need SNF prior to return to [facility] rehab. Visit type - Emergency Visit Emergency Visit: Yes ED Registration Date: 01/12/18 Care time: The patient presented to the Emergency Department on the above date and was hospitalized for further evaluation of their emergent condition. - New Patient This patient is new to me today: Yes Date on this admission: 01/17/18 - Critical Care Critical Care patient: No
[2018-01-17] MEDS: CEFUROXIME AXETIL 250 MG TABLET PO SCH (23:16)
[2018-01-17] MEDS: QUEtiapine FUMARATE 50 MG TABLET PO SCH (23:17)
--- NOTE | 2018-01-18 08:18 | PN ---
Teaching Attending Note Name of Resident: Caleb Wright ATTENDING PHYSICIAN STATEMENT I saw and evaluated the patient. I reviewed the resident's note and discussed the case with the resident. I agree with the resident's findings and plan as documented with exceptions below. SUBJECTIVE: Patient seen and examined. feels better, no nausea,vomiting or abdominal pain, eager to go home. OBJECTIVE: Vital Signs Period Temp Pulse Resp BP Sys/Craig Pulse Ox Last 24 Hr 97.4 F-98.0 F 88-110 20-22 128-149/72-98 96-97 Intake & Output 01/15/18 01/16/18 01/17/18 01/18/18 23:59 23:59 23:59 23:59 Intake Total 520 1170 910 50 Balance 520 1170 910 50 General: sitting in bed in no acute distress Abdomen: soft, NT, obese Extremities: mild tremors Home Medications Medication Instructions Recorded RX: Quetiapine Fumarate [Seroquel 100 mg PO HS 09/25/15 -] RX: Zolpidem Tartrate [Ambien] 10 mg PO HS 12/16/15 RX: Bupropion HCl [Wellbutrin -] 75 mg PO DAILY #30 tablet 01/04/16 RX: Thiamine HCl [Vitamin B1 -] 100 mg PO DAILY #30 tablet 03/16/17 RX: Albuterol Sulfate Inhaler - 2 puff IH Q4H PRN #1 inhaler 04/26/17 [Ventolin HFA Inhaler -] RX: Amlodipine Besylate [Norvasc -] 5 mg PO BID #60 tablet 04/26/17 RX: Aspirin [ASA -] 81 mg PO DAILY #30 tab.chew 04/26/17 RX: Calcium 500Mg/Vit-D 200 Units 1 tab PO BID #60 tab 04/26/17 [Os-Siddhartha 500+D -] RX: Hydrochlorothiazide [Hctz -] 12.5 mg PO DAILY #30 cap 04/26/17 RX: Lactulose (Oral Use) [Cephulac 20 gm PO QID 30 Days udc 04/26/17 -] RX: Ranitidine [Zantac -] 150 mg PO BID #60 tablet 04/26/17 Active Medications Albuterol Sulfate (Ventolin Hfa Inhaler -) 2 puff IH Q4H PRN PRN Reason: ASTHMA Amlodipine Besylate (Norvasc -) 5 mg PO BID [facility] Last Admin: 01/17/18 23:17 Dose: Not Given Aspirin (Asa -) 81 mg PO DAILY [facility] Last Admin: 01/17/18 09:49 Dose: 81 mg Bupropion HCl (Wellbutrin -) 75 mg PO DAILY [facility] Last Admin: 01/17/18 09:50 Dose: 75 mg Calcium Carbonate/Cholecalciferol (Os-Siddhartha 500+D -) 1 tab PO BID [facility] Last Admin: 01/17/18 23:17 Dose: Not Given Cefuroxime Axetil (Ceftin -) 250 mg PO BID [facility] Last Admin: 01/17/18 23:16 Dose: Not Given Hydrochlorothiazide (Hctz -) 12.5 mg PO DAILY [facility] Last Admin: 01/17/18 09:49 Dose: 12.5 mg Lactulose (Cephulac (Oral Use)) 20 gm PO QID [facility] Last Admin: 01/17/18 23:16 Dose: Not Given Quetiapine Fumarate (Seroquel -) 100 mg PO HS [facility] Last Admin: 01/17/18 23:17 Dose: Not Given Ranitidine HCl (Zantac -) 150 mg PO BID [facility] Last Admin: 01/17/18 23:17 Dose: Not Given Thiamine HCl (Vitamin B1 -) 100 mg PO DAILY [facility] Last Admin: 01/17/18 09:49 Dose: 100 mg Zolpidem Tartrate (Ambien -) 10 mg PO HS PRN PRN Reason: INSOMNIA Last Admin: 01/16/18 21:11 Dose: 10 mg Laboratory Results - last 24 hr 01/17/18 09:10 Ammonia 35.35 H ASSESSMENT AND PLAN: 62yo F with PMH cirrhosis, HCV, continous ETOH and heroin use that completed detox at [facility] and currently there for rehab presented for abdominal pain x5 days -Abdominal pain, ?alcoholic gastritis vs ?mild colitis (fluid in hepatic flexure vs artefact), unlikely pancreatitis given normal pancreas on CT/normal lipase) -Acute hepatic encephalopathy -Alcohol/HCV cirrhosis -ETOH abuse -Prolonged QTc -Hypomagnesemia Plan: Abdominal pain improved, off antibiotics, no concerns. GI input appreciated. Abdominal US neg for ascitis. Lactulose. Psych meds as mental status tolerates. PT eval, reinforce OOB with patient. Dc/ in 24 hours if disposition arranged. Plan discussed with patient in detail, all questions answered.
[2018-01-18] MEDS ORDERED: PT OWN MED DRAWER 7, Y5N ONE (10:18)
[2018-01-18] MEDS: RANITIDINE HCL 150 MG TABLET (FP) PO SCH ×2 (10:25→21:52)
[2018-01-18] MEDS: buPROPion HCL 75 MG TABLET PO SCH (10:25)
[2018-01-18] MEDS: CEFUROXIME AXETIL 250 MG TABLET PO SCH ×2 (10:25→21:52)
[2018-01-18] MEDS: CALCIUM 500MG/VIT-D 200 UNITS COMBO TABLET (FP) PO SCH ×2 (10:25→21:52)
[2018-01-18] MEDS: ASPIRIN 81 MG CHEWABLE TABLETS PO SCH (10:25)
[2018-01-18] MEDS: THIAMINE HCL 100 MG TABLET (FP) PO SCH (10:25)
[2018-01-18] MEDS: amLODIPine BESYLATE 5 MG TABLET (FP) PO SCH ×2 (10:25→21:52)
[2018-01-18] MEDS: HYDROCHLOROTHIAZIDE 12.5 MG CAPSULE (FP) PO SCH (10:25)
[2018-01-18] MEDS: LACTULOSE 20 GM/30 ML UDC (FOR ORAL USE ONLY) PO SCH ×5 (10:26→21:52)
[2018-01-18] MEDS ORDERED: POTASSIUM CHLORIDE TABS 10 MEQ TABLET.ER (FP) PO ONE (11:15)
--- NOTE | 2018-01-18 18:22 | PN ---
Physical Exam: SUBJECTIVE: Patient seen and examined at bed side , AAOx 3 in NAD , alert and feels much better. wants to go back to [facility] or home OBJECTIVE: Vital Signs Period Temp Pulse Resp BP Sys/Craig Pulse Ox Last 24 Hr 97.9 F-98.5 F 88-97 17-20 121-146/68-78 97-97 GENERAL: A Ox3 in afternoon NAD. alert HEAD: NCAT EYES: PERRL Conjunctiva clear, sclera anicteric ENT: mmm NECK: Supple, no JVD LUNGS: CTA B/L, no crackles no wheezing no accessory muscle use. HEART: RRR, NSR, normal s1, s2, murmur no M/R/G ABDOMEN: TTP RUQ/RLQ, more prominent in RUQ Soft, ND, +BS LOWER EXTREMITIES: no edema, +2DP pulse, NEUROLOGICAL: No focal deficit. Normal speech. ambulates well w/ cane, appears to be steady. positive asterexis/tremors, generalized weakness 4/5 strength, PSYCHIATRIC: Cooperative. Good eye contact. Appropriate mood and affect. SKIN: Warm, dry Active Medications Generic Name Dose Route Start Last Admin Trade Name Freq PRN Reason Stop Dose Admin Albuterol Sulfate 2 puff 01/12/18 23:03 Ventolin Hfa Inhaler - IH Q4H PRN ASTHMA Amlodipine Besylate 5 mg 01/13/18 10:00 01/18/18 10:25 Norvasc - PO 5 mg BID ROSALIO Administration Aspirin 81 mg 01/13/18 10:00 01/18/18 10:25 Asa - PO 81 mg DAILY ROS[facility]IO Administration Bupropion HCl 75 mg 01/13/18 10:00 01/18/18 10:25 Wellbutrin - PO 75 mg DAILY [facility] Administration Calcium Carbonate/Cholecalciferol 1 tab 01/13/18 10:00 01/18/18 10:25 Os-Siddhartha 500+D - PO 1 tab BID [facility] Administration Cefuroxime Axetil 250 mg 01/17/18 22:00 01/18/18 10:25 Ceftin - PO 250 mg BID [facility] Administration Hydrochlorothiazide 12.5 mg 01/13/18 10:00 01/18/18 10:25 Hctz - PO 12.5 mg DAILY [facility] Administration Lactulose 20 gm 01/12/18 23:15 01/18/18 16:11 Cephulac (Oral Use) PO Not Given QID ROSALIO Quetiapine Fumarate 100 mg 01/13/18 22:00 01/17/18 23:17 Seroquel - PO Not Given HS ROSALIO Ranitidine HCl 150 mg 01/13/18 10:00 01/18/18 10:25 Zantac - PO 150 mg BID ROSALIO Administration Thiamine HCl 100 mg 01/13/18 10:00 01/18/18 10:25 Vitamin B1 - PO 100 mg DAILY [facility] Administration Zolpidem Tartrate 10 mg 01/13/18 22:00 01/16/18 21:11 Ambien - PO 10 mg HS PRN Administration INSOMNIA ASSESSMENT/PLAN: 62yo F with PMH cirrhosis, HCV, continous ETOH and heroin use that completed detox at [facility] and currently there for rehab presented for abdominal pain x5 days #Abdominal pain , stable * possible gastroenteritis vs. possible colitis? unlikely pancreatitis given normal pancreas on CT w/ normal lipase) * CT scan unclear on acute vs. chronic colitis * d/c flagyl, stool c difficile but unlikely given presentation. GI input appreciated. * f/u stool C diff * advance diet as tolerated * pain and nausea controlled * Abdominal US neg for ascitis. * Will need eventual colonoscopy outpt to evaluate the vague CT scan reading noted in the hepatic flexure. #Cirrhosis * Elevated ammonia 45...42...41...35 today * pt taking half of lactulose dose. c/w encouragement for complete compliance * however pt is alert and oscillating in orientation btw 1-3. * Has multiple BM, lactulose to titrate BM 2-3 per day * Will need EGD at some point/outpt to screen for varices. #Lower uncomplicated Proteus UTI vs asymptomatic bacteruria - ceftin day 1 of 5 #Hypokalemia - 3.3 -gave Mg -follow BMP and give K if still low #HCV was supposed to be treated for hepatitis C at the clinic in [place] that she attends. unclear if patient was treated or not. #Polysubstance use * no signs of withdrawal. * avoid narcotics. * Multivitamin * Plan to return to [facility] #DVT ppx * Early ambulation * no pharmacology prophylaxis is needed #FEN -d/c IVF -replete naheed as necessary -cardiac diet #Dispo * Plan to return to [facility] or home sudeep * evaluated by PT * May need SNF prior to return to [facility] rehab. Visit type - Emergency Visit Emergency Visit: Yes ED Registration Date: 01/12/18 Care time: The patient presented to the Emergency Department on the above date and was hospitalized for further evaluation of their emergent condition. - New Patient This patient is new to me today: Yes Date on this admission: 01/18/18 - Critical Care Critical Care patient: No
[2018-01-18] MEDS: QUEtiapine FUMARATE 50 MG TABLET PO SCH (21:52)
[2018-01-18] MEDS: ZOLPIDEM TARTRATE 5 MG TABLET PO PRN (21:52)
[2018-01-19] MEDS: CALCIUM 500MG/VIT-D 200 UNITS COMBO TABLET (FP) PO SCH (09:58)
[2018-01-19] MEDS: THIAMINE HCL 100 MG TABLET (FP) PO SCH (09:58)
[2018-01-19] MEDS: amLODIPine BESYLATE 5 MG TABLET (FP) PO SCH (09:58)
[2018-01-19] MEDS: ASPIRIN 81 MG CHEWABLE TABLETS PO SCH (09:58)
[2018-01-19] MEDS: HYDROCHLOROTHIAZIDE 12.5 MG CAPSULE (FP) PO SCH (09:58)
[2018-01-19] MEDS: RANITIDINE HCL 150 MG TABLET (FP) PO SCH (09:58)
[2018-01-19] MEDS: CEFUROXIME AXETIL 250 MG TABLET PO SCH (09:59)
[2018-01-19] MEDS: buPROPion HCL 75 MG TABLET PO SCH (09:59)
[2018-01-19] MEDS: LACTULOSE 20 GM/30 ML UDC (FOR ORAL USE ONLY) PO SCH ×2 (10:05→14:00)
--- NOTE | 2018-01-19 13:32 | PN ---
Teaching Attending Note Name of Resident: Caleb Wright ATTENDING PHYSICIAN STATEMENT I saw and evaluated the patient. I reviewed the resident's note and discussed the case with the resident. I agree with the resident's findings and plan as documented with exceptions below. SUBJECTIVE: Patient seen and examined. no complaints, ambulating with walker, eager to go home. OBJECTIVE: Vital Signs Period Temp Pulse Resp BP Sys/Craig Pulse Ox Last 24 Hr 97.5 F-98.1 F 88-97 20-24 116-146/68-78 97 Intake & Output 01/16/18 01/17/18 01/18/18 01/19/18 23:59 23:59 23:59 23:59 Intake Total 2406 096 4870 450 Balance 0704 505 1329 450 General: ambulating with walker, no acute distress Abdomen: soft, obese, NT Extremities: mild fine upper extremities tremors on extension, no edema Neuro: AAOX3 Home Medications Medication Instructions Recorded RX: Quetiapine Fumarate [Seroquel 100 mg PO HS 09/25/15 -] RX: Zolpidem Tartrate [Ambien] 10 mg PO HS 12/16/15 RX: Bupropion HCl [Wellbutrin -] 75 mg PO DAILY #30 tablet 01/04/16 RX: Thiamine HCl [Vitamin B1 -] 100 mg PO DAILY #30 tablet 03/16/17 RX: Albuterol Sulfate Inhaler - 2 puff IH Q4H PRN #1 inhaler 04/26/17 [Ventolin HFA Inhaler -] RX: Amlodipine Besylate [Norvasc -] 5 mg PO BID #60 tablet 04/26/17 RX: Aspirin [ASA -] 81 mg PO DAILY #30 tab.chew 04/26/17 RX: Calcium 500Mg/Vit-D 200 Units 1 tab PO BID #60 tab 04/26/17 [Os-Siddhartha 500+D -] RX: Hydrochlorothiazide [Hctz -] 12.5 mg PO DAILY #30 cap 04/26/17 RX: Ranitidine [Zantac -] 150 mg PO BID #60 tablet 04/26/17 RX: Cefuroxime Axetil [Ceftin -] 250 mg PO BID #7 tablet 01/19/18 RX: Lactulose (Oral Use) [Cephulac 20 gm PO BID 14 Days udc 01/19/18 -] RX: Miscellaneous Medical Supply 1 each ASDIR #1 [facility] [place] 01/19/18 [Outpatient Order] ASSESSMENT AND PLAN: 62yo F with PMH cirrhosis, HCV, continous ETOH and heroin use that completed detox at [facility] and currently there for rehab presented for abdominal pain x5 days -Abdominal pain, ?alcoholic gastritis vs ?mild colitis (fluid in hepatic flexure vs artefact), unlikely pancreatitis given normal pancreas on CT/normal lipase) -Acute hepatic encephalopathy -Alcohol/HCV cirrhosis -ETOH abuse -Prolonged QTc -Hypomagnesemia Plan: Abdominal pain improved, off antibiotics, no concerns. GI input appreciated. Abdominal US neg for ascitis. Lactulose. Psych meds as mental status tolerates. PT eval noted, rolling walker. Social work input noted. d/c home today with outpatient follow up with rehab on Monday, patient does not want to return to [facility]. Strongly advised alcohol/substance abuse cessation. Plan discussed with patient in detail, all questions answered.
[2018-01-19 15:12] VITALS: BP 117/66; PULSE 90; TEMP 98.4
--- NOTE | 2018-01-19 20:14 | DS ---
Physical Exam: SUBJECTIVE: Patient seen and examined at bed side , AAOx 3 in NAD , alert and feels much better. wants to go back to [facility] or home OBJECTIVE: Vital Signs Period Temp Pulse Resp BP Sys/Craig Pulse Ox Last 24 Hr 97.5 F-98.4 F 88-100 18-24 116-144/66-80 96-97 PHYSICAL EXAM GENERAL: A Ox3 in afternoon NAD. mood much improved and alert HEAD: NCAT EYES: PERRL Conjunctiva clear, sclera anicteric ENT: mmm NECK: Supple, no JVD LUNGS: CTA B/L, no crackles no wheezing no accessory muscle use. HEART: RRR, NSR, normal s1, s2, murmur no M/R/G ABDOMEN: TTP RUQ/RLQ, more prominent in RUQ Soft, ND, +BS LOWER EXTREMITIES: no edema, +2DP pulse, NEUROLOGICAL: No focal deficit. Normal speech. ambulates well w/ cane, appears to be steady. positive asterexis/tremors, generalized weakness 4/5 strength, PSYCHIATRIC: Cooperative. Good eye contact. Appropriate mood and affect. SKIN: Warm, dry LABS HOSPITAL COURSE: Date of Admission:01/12/18 Date of Discharge: 01/19/18 62 yo F h/o cirrhosis, asthma, copd, HTN, hepatitis c, alcohol and heroin dependence s/p detox and rehab sent from [facility] for abd pain x 5 days. The pain is located in RUQ, radiates to the back, sharp, constant, 9/10, a/w daily watery diarrhea, no aggravating or alleviating factors. Admitted for suspected gastroenteritis. CT scan was done showing no evidence of pancreatitis (normal lipase) and possible acute vs chronic colitis. Abdominal US was neg for ascitis. Flagyl was given for possible colitis/ gastroenteritis and diet downgraded to clear liquids w/ advancing as tolerated. pain and nausea were controlled. GI was consulted, pt Will need eventual colonoscopy outpt to evaluate the CT scan reading noted regarding the hepatic flexure, showing conc sub muc low attenuation. Of note, during hospitalization pt was found to have elevated ammonia along w/ sxs of grogginess and intermittent AMS. Pt was tx w/ lactulose and pt's sxs improved. GI was consulted, pt will need EGD at some point/outpt to screen for varices. Pt was also found to have UTI growing proteus. Pt was tx w/ ceftin. completed 1 dose in hospital and d/c with 4 doses Pt is stable and ready for d/c Minutes to complete discharge: 35 Discharge Summary Reason For Visit: CIRRHOSIS OF LIVER Condition: Stable - Instructions Diet, Activity, Other Instructions: You presented to the hospital with abdominal pain likely due to your liver disease. CT Scan did not show any specific reason. You were treated with antibiotics and pain medications. Your pain has improved since admission and you tolerated regular diet. You were also found to have Urinary tract infection and was treated with antibiotics. please continue Ceftin for 3 more days You will be discharged home. Make sure you have a atleast 2 loose bowel movements every day. Titrate lactulose accordingly and take upto 2-4 times daily . Resume your home medications as prior to admission. Please take all medications as prescribed. Your ammonia level this hospital stay was elevated. Please follow up with your primary care physician regarding that You were seen by Gastroenterology consult in the hospital, you might need an endoscopy and colonoscopy as a follow up as outpatient. Please follow up with your GI doctor, Dr. Beatty, in 1-2 week. Please call to make an appointment. Please follow up with your primary physician in 1-2 weeks. Strongly advise alcohol cessation. Rolling walker has been provided. Follow up with [facility]/detox resources as directed. If your symptoms worsen or if you experience fevers, chest pain or shortness breath, confusion please return to the ED or call 911. Referrals: Oksana Block MD [Primary Care Provider] - 1 Week Jean Carlos Beatty MD [Staff Physician] - 1 Week Disposition: HOME - Home Medications Comprehensive Discharge Medication List: Ambulatory Orders Quetiapine Fumarate [Seroquel -] 100 mg PO HS 09/25/15 Zolpidem Tartrate [Ambien] 10 mg PO HS 12/16/15 Bupropion HCl [Wellbutrin -] 75 mg PO DAILY #30 tablet 01/04/16 Thiamine HCl [Vitamin B1 -] 100 mg PO DAILY #30 tablet 03/16/17 Albuterol Sulfate Inhaler - [Ventolin HFA Inhaler -] 2 puff IH Q4H PRN #1 inhaler 04/26/17 Amlodipine Besylate [Norvasc -] 5 mg PO BID #60 tablet 04/26/17 Aspirin [ASA -] 81 mg PO DAILY #30 tab.chew 04/26/17 Calcium 500Mg/Vit-D 200 Units [Os-Siddhartha 500+D -] 1 tab PO BID #60 tab 04/26/17 Hydrochlorothiazide [Hctz -] 12.5 mg PO DAILY #30 cap 04/26/17 Ranitidine [Zantac -] 150 mg PO BID #60 tablet 04/26/17 Cefuroxime Axetil [Ceftin -] 250 mg PO BID #7 tablet 01/19/18 Lactulose (Oral Use) [Cephulac -] 20 gm PO BID 14 Days udc 01/19/18 Miscellaneous Medical Supply [Outpatient Order] 1 each ASDIR #1 misc This patient is new to me today: Yes Date on this admission: 01/20/18 Emergency Visit: Yes ED Registration Date: 01/12/18 Care time: The patient presented to the Emergency Department on the above date and was hospitalized for further evaluation of their emergent condition. Critical Care patient: No - Discharge Referral Referred to [facility] No
== END 2018-01-19 15:35 | disposition home or self-care (01) ==
LOC: JER 13:53 → INTOOBSV 21:57 → UNDOADMOB 21:57 → JERBED 21:57 → J5S 01-13 05:05
PROVIDERS: ADMIT Internal Medicine; ATTEND Hospitalist
PROC: 3E033GC Introduction of Other Therapeutic Substance into Peripheral Vein, Percutaneous Approach (ICD-10-PCS; principal; 2018-01-12)
PROC: 3E0337Z Introduction of Electrolytic and Water Balance Substance into Peripheral Vein, Percutaneous Approach (ICD-10-PCS; 2018-01-12)
DX: K70.30 Alcoholic cirrhosis of liver without ascites (principal); R10.9 Unspecified abdominal pain; E72.20 Disorder of urea cycle metabolism, unspecified; R19.7 Diarrhea, unspecified; I10 Essential (primary) hypertension; E78.5 Hyperlipidemia, unspecified; J45.909 Unspecified asthma, uncomplicated; B18.2 Chronic viral hepatitis C; M54.5 Low back pain; K21.9 Gastro-esophageal reflux disease without esophagitis; F11.10 Opioid abuse, uncomplicated; F10.10 Alcohol abuse, uncomplicated; K72.00 Acute and subacute hepatic failure without coma; R14.0 Abdominal distension (gaseous); I45.81 Long QT syndrome; E83.42 Hypomagnesemia; E87.6 Hypokalemia
CPT/HCPCS: 36415; 74176-TC; 76700-TC; 80053; 80076; 81003; 81015; 82140; 83690; 83735; 84100; 85025; 85610; 85730; 87086; 87186; 87324; 87449; 93005; 93010; 96374; 97116-GP; 97161-GP; 99282-25; G0378; J7030